=== PATIENT | female | born 1980 | race Caucasian/White ===

== ENCOUNTER 2017-07-21 12:15 | Emergency (ER) | payer MEDICAID ==
--- NOTE | 2017-07-21 12:25 | ED Physician Chart ---
ED Chief Complaint/HPI - Patient Information Date Seen:: 07/21/17 Time Seen:: 12:20 Chief Complaint:: Fever for 3 days. History of Present Illness:: C/O fever for 3 days. Pt has not had any antipyretic and analgesic use today. Pt has had nasal congestion with cough for one day with phlgem. Pt has been taking po well without N/V/D. ?sore throat. No dyspnea. Allergies:: NKA Vitals:: see Nurse Note. Historian:: Patient Family MD/PCP:: Dr. Wynn. LMP:: Now. Review:: Nurse's Note Reviewed ED Review of Systems - Review of Systems General/Constitutional: Fever, No chills, No weight loss, No weakness, No edema , No loss of appetite Skin: No rash, No bruising Head: Headache (sinus pressure), No light-headedness Eyes: No loss of vision, No pain, No diplopia ENT: No earache, Nasal drainage, Sore throat (?) Neck: No neck pain, No swelling, No thyromegaly, No stiffness, No mass noted Cardio Vascular: No chest pain, No palpitations, No edema Pulmonary: No SOB, Cough, Sputum (?phlegm), No wheezing GI: No nausea, No vomiting, No pain G/U: No dysuria, No frequency Digital Photo Printer: No vaginal discharge, No abnormal vaginal bleed Musculoskeletal: No bone or joint pain, No muscle pain Endocrine: No polyuria, No polydipsia Psychiatric: No prior psych history Hematopoietic: No bruising, No lymphadenopathy Allergic/Immuno: No urticaria, No angioedema Neurological: No syncope, No focal symptoms, No weakness, No paresthesia, No dizziness, No confusion ED Past Medical History - Past Medical History Past Medical History: HTN Family History: HTN (parents.) Social History: Non Smoker, No Alcohol, No Drug Use, , Other (lives with her son.) Employment:: Unemployed. Surgical History: (C section 10 y/a), other (R forearm tendon repair 9 y/a) Psychiatricy History: None Medication: Reviewed Family Medical History - Family Member Mother Ethnicity: Living Status: Still Living Hx Family Hypertension: Yes ED Physical Exam - Physical Examination General/Constitutional: Awake, Well-developed, well-nourished, Alert, No distress, GCS 15, Non-toxic appearing Other Gen/Cons comments:: Breathes comfortably, speaks clearly, and interacts normally. Head: Atraumatic (Mild tenderness at frontal and maxillary sinus regions.) Eyes: Lids, conjuctiva normal, PERRL, EOMI Skin: Nl inspection, No rash, No ecchymosis, No lymphadenopathy ENMT: External ears, nose nl, TM canals nl Other ENMT comments:: Trace light yellow postnasal drip noticed. Throat is slightly erythematous. Neck: Nontender, Full ROM w/o pain, No nuchal rigidity, No mass, No stridor Respiratory: Nl effort/Exclusion, Clear to Auscultation Cardio Vascular: No murmur, gallop, rubs Other Cardio Vascular comments:: Regular rhythm with mild tachycardia. HR 106. GI: No tenderness/rebounding/guarding, No organomegaly, Normal BS's, Nondistended Other GI comments:: Abdomen is soft. Extremities: No tenderness or effusion, No edema Neuro/Psych: Alert/oriented (oriented x 3), Mood normal, No focal deficits ED Septic Shock - . Is Septic Shock (SBP<90, OR Lactate>4 mmol\L) present?: No ED Reassessment (Disposition) - Reassessment Reassessment:: 1420 Pt feels much better. Pt is now afebrile. No N/V/D. No dyspnea. Pt requests to go home now and does not want further observation/management in hospital. Aftercare instructions have been given. Reassessment Condition:: Improved - Diagnosis Diagnosis:: Viral syndrome with secondary acute sinusitis. Stable. - Aftercare/Follow up Instructions Aftercare/Follow-Up Instructions:: Refer to Discharge Instructions Notes:: Bedrest for today. May take Sudafed as directed. May take Tylenol and/or Motrin as directed prn for pain or fever. Push oral fluid. F/U with PCP Dr. Wynn in 1-2 days for recheck. Return to ER immediately if condition worsens or if any further questions/problems. Medication Prescribed:: Bactrim DS one tab po q12h for 14 days. D-28 R-0 Pt has been instructed to use barrier method control in addition to OCP when taking antibiotic. - Patient Disposition Discharge/Transfer:: Home Time:: 14:30 Condition at Disposition:: Stable, Improved ED Discharge Plan - Patient Disposition Prescriptions: Sulfamethoxazole/Trimethoprim [Bactrim Ds Tablet] 1 each PO BID #14 tablet Instructions: Fever, Adult, Viral Infections, [id number]
[2017-07-21] MEDS ORDERED: Sulfamethoxazole/TMP 800/160mg Tab PO ONE (13:20)
[2017-07-21] MEDS ORDERED: Sulfamethoxazole/TMP 800/160mg Tab ONE (13:35)
== END 2017-07-21 14:30 | disposition home or self-care (01) ==
LOC: ER 12:15
DX: B34.9 Viral infection, unspecified (principal); J01.90 Acute sinusitis, unspecified; I10 Essential (primary) hypertension
CPT/HCPCS: Z7502; Z7610

== ENCOUNTER 2017-07-22 10:20 | Inpatient (IN) | payer MEDICAID ==
--- NOTE | 2017-07-22 10:33 | ED Physician Chart ---
ED Chief Complaint/HPI - Patient Information Date Seen:: 07/22/17 Time Seen:: 10:20 Chief Complaint:: Dyspnea History of Present Illness:: onset x 2 days of dyspnea, anxiousness, hyperventillation, generalized paresthesias, numbness, and weakness intermittently; pt denies trauma, H/As, S/T , neck pain, C/P, Abd. Pain, A/N/V/D/C, fever, chills, or urinary s/s Allergies:: Allergies Allergy/AdvReac Type Severity Reaction Status Date / Time No Known Allergies Allergy Verified 07/21/17 12:25 Historian:: Patient Review:: Nurse's Note Reviewed ED Review of Systems - Review of Systems General/Constitutional: No fever, No chills, No weight loss, No weakness, No diaphoresis, No edema, No loss of appetite Skin: No skin lesions, No rash, No bruising Head: No headache, No light-headedness Eyes: No loss of vision, No pain, No diplopia ENT: No earache, No nasal drainage, No sore throat, No tinnitus Neck: No neck pain, No swelling, No thyromegaly, No stiffness, No mass noted Cardio Vascular: No chest pain, No palpitations, No PND, No orthopnea, No edema Pulmonary: SOB, No cough, No sputum, No wheezing GI: No nausea, No vomiting, No diarrhea, No pain, No melena, No hematochezia, No constipation, No hematemesis G/U: No dysuria, No frequency, No hematuria Route Salesman And Driver: No vaginal discharge, No abnormal vaginal bleed, No contraction Musculoskeletal: No bone or joint pain, No back pain, No muscle pain Endocrine: No polyuria, No polydipsia Psychiatric: No prior psych history, No depression, Anxiety, No suicidal ideation, No homicidal ideation, No auditory hallucination, No visual hallucination Hematopoietic: No bruising, No lymphadenopathy Allergic/Immuno: No urticaria, No angioedema Neurological: No syncope, No focal symptoms, Weakness, Paresthesia, No headache , No seizure, No dizziness, No confusion, No vertigo ED Past Medical History - Past Medical History Obtainable: Yes Past Medical History: Other (Hyperventillation Syndrome) Family History: HTN Social History: Non Smoker, No Alcohol, No Drug Use, Surgical History: None Psychiatricy History: Other (Anxiety Reaction) Medication: Reviewed Family Medical History - Family Member Mother Ethnicity: Living Status: Still Living Hx Family Hypertension: Yes ED Physical Exam - Physical Examination General/Constitutional: Awake, Well-developed, well-nourished, Alert, No distress, GCS 15, Non-toxic appearing, Ambulatory Head: Atraumatic Eyes: Lids, conjuctiva normal, PERRL, EOMI Other Eyes comments:: + Scleral Icterus Skin: Nl inspection, No rash, No skin lesions, No ecchymosis, Well hydrated, No lymphadenopathy Other Skin comments:: + jaundice ENMT: External ears, nose nl, TM canals nl, Nasal exam nl, Lips, teeth, gums nl , Oropharynx nl, Tonsils nl Neck: Nontender, Full ROM w/o pain, No JVD, No nuchal rigidity, No bruit, No mass, No stridor Other Neck comments:: Supple; no meningeal signs; no cervical tenderness; no bruits Respiratory: Nl effort/Exclusion, Clear to Auscultation, No Wheeze/Rhonchi/Rales Cardio Vascular: RRR, No murmur, gallop, rubs, NL S1 S2, Carotid/Femoral/Distal pulses equal bilaterally GI: No tenderness/rebounding/guarding, No organomegaly, No hernia, Normal BS's, Nondistended, No mass/bruits, No McBurney tenderness Other GI comments:: no pulsatile masses : No CVA tenderness Extremities: No tenderness or effusion, Full ROM, normal strength in all extremities, No edema, Normal digits & nails Neuro/Psych: Alert/oriented, DTR's symmetric, Normal sensory exam, Normal motor strength, Judgement/insight normal, Mood normal, Normal gait, No focal deficits Misc: Normal back, No paraspinal tenderness ED Labs/Radiology/EKG Results - Lab Results Comments:: WBC: 3.8; Platelets: 85,000; LA: 13; Na+: 122; K+: 3.3; CO2: 12; BUN: 52; Cr: 5 ; Elevated LFTs; - EKG Interpretations EKG Time:: 11:06 Rate & Rhythm: 101; ST Comments:: non-specific st-t changes ED Septic Shock - . Is Septic Shock (SBP<90, OR Lactate>4 mmol\L) present?: No ED Reassessment (Disposition) - Reassessment Reassessment Condition:: Improved - Diagnosis Diagnosis:: Dx: Dyspnea; Jaundice; Pulmonary Embolus; CHF; Hepatitis; Hyponatremia; Hypokalemia; Acidosis; Respiratory Alkalosis; Metabolic Acidosis; Leukopenia; Anemia; Sepsis - Aftercare/Follow up Instructions Aftercare/Follow-Up Instructions:: Counseled pt regarding lab results/diagnosis & need follow up, Counseled pt & family regarding lab results/diagnosis & need follow up - Patient Disposition Discharge/Transfer:: Acute Care w/in this hosp Accepting Physician:: Dr. Haddad Time Called:: 1230 Time Responded:: 12:30 Admitted to:: ICU Spoke to:: Dr. Haddad Admitting Medical Physician:: Dr. Haddad Condition at Disposition:: Stable, Improved
[2017-07-22 11:08] LABS: HEMATOCRIT 34.5 % (41.0-60); HEMOGLOBIN 11.5 gm/dL (12-16); MEAN CELL VOLUME 74.8 fl (81-100); MEAN CORPUSCULAR HGB CONC 33.4 pg (28.0-36.0); MEAN PLATELET VOLUME 9.1 fl; PLATELET COUNT 85 Th/cmm (150-400); RED BLOOD COUNT 4.62 Mil/cmm (3.80-5.10)
[2017-07-22 11:14] LABS: INR 1.1 (0.5-1.4); MANUAL DIFF REQUIRED? YES; PROTHROMBIN TIME (TEST) 11.5 SECONDS (9.5-11.5); WHITE BLOOD COUNT 3.8 Th/cmm (4.8-10.8)
[2017-07-22 11:24] LABS: ALB/GLOB RATIO 1.3 (1.0-1.8); ALBUMIN 3.2 gm/dL (3.7-5.3); ANION GAP 28.3 (7.0-16.0); BILIRUBIN,TOTAL 6.3 mg/dL (0.3-1.0); CALCIUM SERUM 7.8 mg/dL (8.6-10.3); GFR AFRICAN-AMERICAN 12.6 ml/min (>90); GFR NON AFRICAN-AMERICAN 10.4 ml/min; POTASSIUM SERUM 3.3 mEq/L (3.5-5.1); TOTAL PROTEIN,SERUM 5.6 gm/dL (6.0-8.3)
[2017-07-22 11:25] LABS: ALB/GLOB RATIO 1.3 (1.0-1.8); ALBUMIN 3.2 gm/dL (3.7-5.3); BILIRUBIN,DIRECT 3.52 mg/dL (0.0-0.2); BILIRUBIN,TOTAL 6.3 mg/dL (0.3-1.0); TOTAL PROTEIN,SERUM 5.7 gm/dL (6.0-8.3)
[2017-07-22] MEDS ORDERED: Sodium Chloride 0.9% 1,000 ML IV ONE ×2 (11:29→21:00)
[2017-07-22 11:39] LABS: pH 7.25 (7.35-7.45)
[2017-07-22 11:43] LABS: BAND NEUTROPHILE 28 % (0-10); LYMPHOCYTE 9 % (20-50); MONOCYTE 6 % (2-10); NEUTROPHILS 57 % (40-80); TOTAL CELLS COUNTED 100
[2017-07-22 11:44] LABS: ANISOCYTOSIS 1+; PLATELET ESTIMATE SLIGHT DECREASED (NORMAL)
[2017-07-22] MEDS ORDERED: Sodium Bicarbonate 8.4% 50mEq PFS IVP ONE ×3 (11:57→22:14)
[2017-07-22] MEDS ORDERED: Sodium Bicarbonate 8.4% 50mEq PFS IVP SCH (12:00)
[2017-07-22] MEDS ORDERED: Potassium Chloride 20 mEq ER Tab PO ONE ×2 (12:29→12:30)
[2017-07-22] MEDS ORDERED: Sodium Bicarbonate 8.4% 50mEq PFS IVP PRN (12:45)
[2017-07-22] MEDS ORDERED: cefTRIAXone 1 GM in Sodium Chloride 0.9% 50 ML IV ONE (14:50)
[2017-07-22] MEDS ORDERED: Sodium Bicarbonate 8.4% 200 MEQ in Sodium Chloride 0.9% 1,000 ML IV SCH (14:58)
[2017-07-22] MEDS ORDERED: Sodium Chloride 0.9% 1,000 ML IV SCH (15:00)
--- NOTE | 2017-07-22 16:48 | Consultation ---
DATE OF CONSULTATION: 07/22/2017 HEMATOLOGY AND ONCOLOGY CONSULTATION REFERRING PHYSICIAN: Ten Haddad. REASON FOR CONSULTATION: Pancytopenia. HISTORY OF PRESENT ILLNESS: The patient is a 36-year-old female who came to the Emergency Room with weakness and shortness of breath. Denied fever. Denied confusion. The initial workup was abnormal showing acute renal failure, abnormal liver functions, hypoxemia, elevated D-dimer, low white count, hemoglobin and platelets; therefore, I was asked to evaluate and also the patient will be seen by the slope runner and thermal spray operator. She was started on Rocephin 1 dose of antibiotic in the Emergency Room. The patient is seen in the Emergency Room. PAST MEDICAL HISTORY: Hypertension. FAMILY HISTORY: Hypertension. SOCIAL HISTORY: No smoking or drinking. SURGICAL HISTORY: The patient had one . MEDICATIONS: Reviewed. PHYSICAL EXAMINATION: GENERAL: She looks acutely ill. VITAL SIGNS: Blood pressure 109/66, afebrile, pulse 106 and respiration ranging between 20 and 25. HEENT: Atraumatic and icteric sclerae. NECK: No lymphadenopathy. CHEST: Equal air entry. ABDOMEN: Soft. No guarding or rebound. No ascites or organomegaly. EXTREMITIES: No edema. NERVOUS SYSTEM: Moves four extremities. SKIN: Icteric. LABORATORY DATA: White count 3.8, hemoglobin 11.5, MCV 74.8, platelets 85, bands 28%, neutrophils 57% and lymphocytes 9%. INR 1.1, PTT 42.6. D-dimer 2500. Blood gas: PH 7.25, Pao2 75, saturation 75, potassium 3.3, sodium 122, creatinine 5, carbondioxide 12, total bilirubin 6.3, direct bilirubin 3.5. AST and ALT are elevated. test negative. IMAGING STUDIES: Pending. ASSESSMENT: Multiple abnormal findings highlighted by acute renal failure and pancytopenia with marked elevation of the bands on the differential count and high bilirubin. The differential diagnosis at this point is very wide including pulmonary embolism, sepsis, acute liver failure. I will obtain fibrinogen level. TTP is less likely because of the elevated PTT; however, it will be considered based on the clinical progress of the condition. At this point in time, the patient is not neutropenic or severely pancytopenic to require transfusion. She has microcytic anemia. I will obtain the anemia workup. Follow the V/Q scan for possibility of pulmonary embolism and also follow the results of the CT scan of the abdomen and pelvis. Further management will be addressed based on the results of the workup. Thank you, Dr. Haddad for the opportunity to participate in the care of this interesting case. JOB# [id number]
[2017-07-22] MEDS ORDERED: Diltiazem 5 mg/mL 5mL Vial IVP STA (19:08)
[2017-07-22] MEDS ORDERED: Diltiazem 5 mg/mL 5mL Vial IVP ONE (19:09)
--- NOTE | 2017-07-22 19:09 | Consultation ---
DATE OF CONSULTATION: 07/22/2017 REASON FOR CONSULTATION: Jaundice. HISTORY OF PRESENT ILLNESS: This consult was obtained through the courtesy of Dr. Haddad for this 36-year-old with history of hypertension, presented to the hospital because of shortness of breath, bluish discoloration of her hands and feet, feeling cold. The patient started feeling sick . She came to the hospital yesterday, was sent home, then showed up again, however, was called by the hospital administration, was found that she had abnormal results so she was advised to come back again. When she came, she was hypoxemic. She had abnormal liver function tests, pancytopenia. The patient was admitted. GI consult was called in for the jaundice. The patient denies any weight loss. No hematemesis, melena or hematochezia. No change of bowel habits. PAST MEDICAL HISTORY: Hypertension. PAST SURGICAL HISTORY: and hand surgery following injury by a glass container. SOCIAL HISTORY: Nonsmoker, alcoholic and IV drug abuser. FAMILY HISTORY: Noncontributory. MEDICATIONS: Only for blood pressure. ALLERGIES: No known drug allergies. REVIEW OF SYSTEMS: Again, no weight loss. No hematemesis, melena or hematochezia. No prior episodes like this. PHYSICAL EXAMINATION: GENERAL: The patient is awake, oriented to self, place, and time, in moderately severe distress secondary to shortness of breath. VITAL SIGNS: Blood pressure is 122/77, heart rate 126, respiratory rate is 22, and temperature is 99.8. HEAD AND NECK: Pupils reactive to light. Extraocular muscles intact. Sclerae icteric. Conjunctivae not pale. Oral cavity, no lesion. NECK: Supple, no jugular venous distention, no carotid bruits or lymph node. CHEST: Good respiratory movements. LUNGS: Clear to auscultation. CARDIOVASCULAR: Regular rate and rhythm. No murmur or gallop. Heart rate is tachycardic. ABDOMEN: Soft, nontender, nondistended. Bowel sounds present. EXTREMITIES: Lower extremities felt warm, but has some mottling. Upper extremities cyanotic. LABORATORY DATA: White count 3.8, platelets 85, H and H are 11.5 and 34.5. PT is normal, pCO2 was 18. Potassium 3.3, BUN 52, creatinine 5. No labs from the visit over the last night. Bilirubin is 6.3, direct is 3.52, AST 129, ALT 61. Lactic acid is 11.91 and repeat was 12.91. IMPRESSION: A 36-year-old with hypertension, now presenting with plethora of symptoms including cyanotic hands, cold feet, mottling of skin, thrombocytopenia, jaundice, shortness of breath, hypoxemia. The whole picture is very hard to explain, could be some vasculitis problem, could be autoimmune, could be some sort of rheumatological disorder, cannot exclude also thrombocytopenic purpura. At this time, the high bilirubinemia is 5050, so was not completely indirect to suggest hemolysis only. There could be some blockage. There could be some sepsis also given the elevation of lactic acid again part of the differential also might include pulmonary embolism. The patient already is being evaluated with retail wireless associate. PE is on the workup, she had a CAT scan, result is not available yet. We will get also an ultrasound. We will recheck liver enzymes in the morning. We will check hepatitis panel and the patient might benefit from being transferred to a tertiary center for further evaluation for the time being. Thank you, Dr. Haddad for allowing me to participate in the care of this patient. If you have any further questions, please let me know. JOB# [id number] [place]
[2017-07-22 19:13] LABS: ACETAMINOPHEN < 10.0 ug/mL (10.0-30.0); SALICYLATES (ASPIRIN) < 25.0 mg/L (30.0-100.0)
[2017-07-22] MEDS ORDERED: Sodium Bicarbonate 8.4% 50mEq PFS IVP STA ×2 (19:23→21:06)
[2017-07-22 19:25] LABS: ALB/GLOB RATIO 1.2 (1.0-1.8); ALBUMIN 2.6 gm/dL (3.7-5.3); ANION GAP 30.3 (7.0-16.0); BILIRUBIN,TOTAL 7.1 mg/dL (0.3-1.0); CALCIUM SERUM 6.5 mg/dL (8.6-10.3); GFR AFRICAN-AMERICAN 11.5 ml/min (>90); GFR NON AFRICAN-AMERICAN 9.5 ml/min; POTASSIUM SERUM 3.9 mEq/L (3.5-5.1); TOTAL PROTEIN,SERUM 4.7 gm/dL (6.0-8.3)
[2017-07-22 19:48] LABS: CARBON DIOXIDE 9.6 mEq/L (21.0-31.0); CREATININE - SERUM 5.4 mg/dL (0.6-1.2)
[2017-07-22 19:55] LABS: INF A SCREEN NEG FOR INF A; INF B SCREEN NEG FOR INF B
[2017-07-22] MEDS ORDERED: Piperacillin Sodium/Tazobact 3.375 gm Vial IV ONE (19:59)
--- NOTE | 2017-07-22 20:10 | Consultation ---
DATE OF CONSULTATION: 07/22/2017 PATIENT OF: Dr. Haddad Thank you very much, Dr. Haddad for this consultation. HISTORY OF PRESENT ILLNESS: This is a very interesting 36-year-old female who apparently presented with flu-like symptoms, given antibiotics and came back sick again, was found to be tachycardic, tachypneic, short of breath and was found to have severe metabolic acidosis, has received bicarbonate, IV fluids 2 liters so far. Initial ABG shows severe metabolic acidosis. The patient was found to be in acute renal failure as well with lactic acid of 12.9. The patient says she does not have any significant medical problems before, last couple of days she felt like she is getting cold and feet and hands and diminished sensation all over. She is not aware of any connective tissue disorders. No recent travel. She is not a smoker. No drinking and no drug use. PHYSICAL EXAMINATION: GENERAL: The patient is uncomfortable, apprehensive, but apparently doing a little bit better, breathing a bit easier than yesterday. VITAL SIGNS: Temperature 99.8, pulse is 126, respiratory rate 22, blood pressure 122/77, saturation 99% on nasal cannula. HEENT: Atraumatic, normocephalic. Pupils are equal to light and accommodation. Ears, nose and throat are normal. NECK: Supple. No JVD. CHEST: There are decreased breath sounds right base, few rhonchi. HEART: Regular rhythm. ABDOMEN: Soft. EXTREMITIES: No edema. There are cool extremities all over. This appears to be cyanotic type of hands, but with adequate saturation. LABORATORY DATA: WBC is 3.8, hemoglobin 11.5, hematocrit 34.5, platelets is 85. ABGs: pH 7.25, pCO2 of 53, pO2 of 75, bicarbonate 11, saturation is 75%. Sodium is 122, potassium 3.3, BUN is 52, creatinine is 5. Chest x-ray showed extensive right-sided infiltrate. CT abdomen no significant abnormalities, dilated stomach. IMPRESSION: A 36-year-old female with extensive pneumonia on the right side, appears to be sepsis, acute renal failure, liver failure, multiorgan failure, possibly methemoglobinemia with low saturation and adequate pO2. PLAN: 1. IV fluids, IV antibiotics. 2. Bicarb. 3. Follow up ABGs with methemoglobin value. renal and GI and suggest ID evaluation. The patient might benefit tertiary Center for any further extensive evaluation. We will agree with broad spectrum antibiotics usage and discussed with the patient and her family in details. Poor prognosis at this point. Thank you for this consultation. I will follow the patient with you. JOB# [id number] [email or web address]
[2017-07-22 21:17] LABS: pH 7.23 (7.35-7.45)
[2017-07-22 21:18] LABS: ALLEN TEST Positive
[2017-07-22] MEDS ORDERED: Sodium Bicarbonate 8.4% 50mEq Vial ONE ×2 (21:23→21:57)
[2017-07-22] MEDS: Sodium Bicarbonate 8.4% 50mEq PFS IVP SCH (21:30)
[2017-07-22] MEDS: Calcium Gluconate 1 GM in Sodium Chloride 0.9% 100 ML IV SCH (21:38)
[2017-07-22] MEDS ORDERED: Norepinephrine 4 mg/4mL Vial IV ONE (22:23)
--- NOTE | 2017-07-22 22:52 | ED Physician Chart ---
ED Chief Complaint/HPI - Patient Information Date Seen:: 07/22/17 Time Seen:: 21:39 History of Present Illness:: Around 21:20, spoke with Dr. Earl who wanted the V/Q scan to be stopped and intubation to be done CED. Allergies:: Allergies Allergy/AdvReac Type Severity Reaction Status Date / Time No Known Allergies Allergy Verified 07/21/17 12:25 Vitals:: Vital Signs - 8 hr 07/22/17 07/22/17 07/22/17 15:00 16:37 17:00 Temp 99.8 F 99 F HR 122 126 133 RR 22 22 22 BP 122/79 122/77 122/65 O2 Sat % 99 99 99 Family Medical History - Family Member Mother Ethnicity: Living Status: Still Living Hx Family Hypertension: Yes ED Labs/Radiology/EKG Results - Lab Results Results: Laboratory Tests 07/22/17 07/22/17 07/22/17 10:45 10:55 10:55 WBC 3.8 L RBC 4.62 Hgb 11.5 L Hct 34.5 L MCV 74.8 L MCH 25.0 L MCHC Differential 33.4 RDW 15.0 Plt Count 85 L MPV 9.1 Band Neutrophils % 28 H Neutrophils (Manual) 57 Lymphocytes 9 L Monocytes 6 Platelet Estimate SLIGHT DECREASED Anisocytosis 1+ Microcytosis 2+ PT 11.5 INR 1.10 PTT (Actin FS) 42.6 H Fibrinogen 220.0 D-Dimer Specimen Source Sample Site pH pCO2 pO2 HCO3 Base Excess O2 Saturation Roland Test Vent Rate Inspired O2 Tidal Volume PEEP Pressure (ins/psv/peep) Critical Value Sodium Potassium Chloride Carbon Dioxide Anion Gap BUN Creatinine Est GFR ( Amer) Est GFR (Non-Af Amer) BUN/Creatinine Ratio Glucose Whole Bld Lactic Acid Calcium Total Bilirubin Direct Bilirubin AST ALT Alkaline Phosphatase Creatine Kinase CK-MB (CK-2) Troponin I B-Natriuretic Peptide Total Protein Albumin Globulin Albumin/Globulin Ratio Triglycerides Cholesterol LDL Cholesterol Direct HDL Cholesterol Amylase Lipase Serum , Qual Salicylates Acetaminophen Influenza A (Rapid) Influenza B (Rapid) 07/22/17 07/22/17 07/22/17 10:55 10:55 10:55 WBC RBC Hgb Hct MCV MCH MCHC Differential RDW Plt Count MPV Band Neutrophils % Neutrophils (Manual) Lymphocytes Monocytes Platelet Estimate Anisocytosis Microcytosis PT INR PTT (Actin FS) Fibrinogen D-Dimer 2560 H Specimen Source Sample Site pH pCO2 pO2 HCO3 Base Excess O2 Saturation Roland Test Vent Rate Inspired O2 Tidal Volume PEEP Pressure (ins/psv/peep) Critical Value Sodium 122 L Potassium 3.3 L Chloride 85 L Carbon Dioxide 12.0 L Anion Gap 28.3 H BUN 52 H Creatinine 5.0 H* Est GFR ( Amer) 12.6 Est GFR (Non-Af Amer) 10.4 BUN/Creatinine Ratio 10.4 Glucose 89 Whole Bld Lactic Acid Calcium 7.8 L Total Bilirubin 6.3 H Direct Bilirubin AST 129 H ALT 61 H Alkaline Phosphatase 72 Creatine Kinase 901 H CK-MB (CK-2) 24.6 H Troponin I 0.07 H* B-Natriuretic Peptide 511.0 H Total Protein 5.6 L Albumin 3.2 L Globulin 2.4 Albumin/Globulin Ratio 1.3 Triglycerides 536 H Cholesterol 129 LDL Cholesterol Direct 23 L HDL Cholesterol 15 L Amylase Lipase Serum , Qual Salicylates Acetaminophen Influenza A (Rapid) Influenza B (Rapid) 07/22/17 07/22/17 07/22/17 10:55 10:55 10:55 WBC RBC Hgb Hct MCV MCH MCHC Differential RDW Plt Count MPV Band Neutrophils % Neutrophils (Manual) Lymphocytes Monocytes Platelet Estimate Anisocytosis Microcytosis PT INR PTT (Actin FS) Fibrinogen D-Dimer Specimen Source Sample Site pH pCO2 pO2 HCO3 Base Excess O2 Saturation Roland Test Vent Rate Inspired O2 Tidal Volume PEEP Pressure (ins/psv/peep) Critical Value Sodium Potassium Chloride Carbon Dioxide Anion Gap BUN Creatinine Est GFR ( Amer) Est GFR (Non-Af Amer) BUN/Creatinine Ratio Glucose Whole Bld Lactic Acid 11.98 H* Calcium Total Bilirubin 6.3 H Direct Bilirubin 3.52 H AST 133 H ALT 61 H Alkaline Phosphatase 73 Creatine Kinase CK-MB (CK-2) Troponin I B-Natriuretic Peptide Total Protein 5.7 L Albumin 3.2 L Globulin 2.5 Albumin/Globulin Ratio 1.3 Triglycerides Cholesterol LDL Cholesterol Direct HDL Cholesterol Amylase Lipase Serum , Qual NEGATIVE Salicylates Acetaminophen Influenza A (Rapid) Influenza B (Rapid) 07/22/17 07/22/17 07/22/17 10:55 11:30 13:05 WBC RBC Hgb Hct MCV MCH MCHC Differential RDW Plt Count MPV Band Neutrophils % Neutrophils (Manual) Lymphocytes Monocytes Platelet Estimate Anisocytosis Microcytosis PT INR PTT (Actin FS) Fibrinogen D-Dimer Specimen Source Arterial Sample Site LB pH 7.25 L pCO2 18.0 L* pO2 75.0 L HCO3 11.5 L Base Excess -17.1 L O2 Saturation 75.0 L Roland Test Vent Rate Inspired O2 21 Tidal Volume PEEP Pressure (ins/psv/peep) Critical Value PW Sodium Potassium Chloride Carbon Dioxide Anion Gap BUN Creatinine Est GFR ( Amer) Est GFR (Non-Af Amer) BUN/Creatinine Ratio Glucose Whole Bld Lactic Acid 12.91 H* Calcium Total Bilirubin Direct Bilirubin AST ALT Alkaline Phosphatase Creatine Kinase CK-MB (CK-2) Troponin I B-Natriuretic Peptide Total Protein Albumin Globulin Albumin/Globulin Ratio Triglycerides Cholesterol LDL Cholesterol Direct HDL Cholesterol Amylase Lipase Serum , Qual Salicylates < 25.0 L Acetaminophen < 10.0 L Influenza A (Rapid) Influenza B (Rapid) 07/22/17 07/22/17 07/22/17 19:04 19:20 20:15 WBC RBC Hgb Hct MCV MCH MCHC Differential RDW Plt Count MPV Band Neutrophils % Neutrophils (Manual) Lymphocytes Monocytes Platelet Estimate Anisocytosis Microcytosis PT INR PTT (Actin FS) Fibrinogen D-Dimer Specimen Source Arterial Sample Site RB pH 7.23 L* pCO2 30.0 L pO2 112.0 H HCO3 14.2 L Base Excess -13.7 L O2 Saturation 97.0 Roland Test Positive Vent Rate N/A Inspired O2 100% Tidal Volume N/A PEEP N/A Pressure (ins/psv/peep) N/A Critical Value HSTEHNO Sodium 124 L Potassium 3.9 Chloride 88 L Carbon Dioxide 9.6 L* Anion Gap 30.3 H BUN 59 H Creatinine 5.4 H* Est GFR ( Amer) 11.5 Est GFR (Non-Af Amer) 9.5 BUN/Creatinine Ratio 10.9 Glucose 81 Whole Bld Lactic Acid Calcium 6.5 L Total Bilirubin 7.1 H Direct Bilirubin AST 137 H ALT 54 H Alkaline Phosphatase 68 Creatine Kinase CK-MB (CK-2) Troponin I B-Natriuretic Peptide Total Protein 4.7 L Albumin 2.6 L Globulin 2.1 Albumin/Globulin Ratio 1.2 Triglycerides Cholesterol LDL Cholesterol Direct HDL Cholesterol Amylase 276 H Lipase 19 Serum , Qual Salicylates Acetaminophen Influenza A (Rapid) NEG FOR INF A Influenza B (Rapid) NEG FOR INF B ED Assessment - Procedures Procedures:: Intubation. After Etomidate 18mg IVP and Succinylcholine 60mg IVP, sedation and paralysis were achieved, a MAC 4 blade and 7 ET tube were used to intubate the patient with success. Patient tolerated well. CXR and ABG were ordered. ED Septic Shock - . Is Septic Shock (SBP<90, OR Lactate>4 mmol\L) present?: No - <6hrs of presentation: Vital Signs: Vital Signs - 8 hr 07/22/17 07/22/17 07/22/17 15:00 16:37 17:00 Temp 99.8 F 99 F HR 122 126 133 RR 22 22 22 BP 122/79 122/77 122/65 O2 Sat % 99 99 99 ED Reassessment (Disposition) - Reassessment Reassessment Condition:: Improved
--- NOTE | 2017-07-22 23:30 | History & Physical ---
ADMIT DATE: 07/22/2017 CHIEF COMPLAINT: Not feeling well, shortness of breath and numbness of both hand and feet. HISTORY OF PRESENT ILLNESS: This is a 36-year-old female who came to the Emergency Room for evaluation of not feeling well for the past 4-5 days. The patient was alert, awake at the time of evaluation who helped me providing most of the history. Per patient, she started feeling sick about 5 days ago. Initially, the patient states that she had some tooth ache, progressively she started feeling very weak. The patient said that she probably have had her fever for the last 3-4 days but never checked the temperature. Today she started having shortness of breath. Denies any associated chest pain. No dizziness, no palpitations. The patient said she came to the Emergency Room yesterday at [facility] Emergency Room and was diagnosed with viral infection and acute sinusitis and was discharged home with the oral antibiotic, which she took 2 doses. In spite of that, she did not feel well, instead she got worse so the patient came to the Emergency Room again. The patient says she does have underlying history of hypertension for the past 10 years and for which she sees her primary care physician on a regular basis and takes atenolol on regular basis. The patient denies any recent travel history. She states that she had one or two episodes of loose stool. She denies any vomiting. She denies any hematemesis, no melena, no hematuria, no dysuria, no bloody stool. The patient's family was at the bedside who said the patient has been having a headache for the past 2 weeks. The patient in last 5 days, she was trying to rest at home except yesterday when she came to the Emergency Room. PAST MEDICAL HISTORY: Hypertension. PAST SURGICAL HISTORY: C section surgery SOCIAL HISTORY: Lives at home. She is unemployed. She denies any past or present history of alcohol, tobacco or street drug use. CURRENT MEDICATIONS: The patient at home was on atenolol. REVIEW OF SYSTEMS: Trouble breathing, bilateral hand and feet numbness, bluish discoloration. Denies any throat pain, no chest pain, no dizziness, no palpitations, no nausea, no vomiting, no abdominal pain, no headache, no double vision, no trouble speech. denied hemetemesis or melena. PHYSICAL EXAMINATION: VITAL SIGNS: Temperature 99, pulse 133, respiration ranges was 22 to 40, blood pressure was 122/65 on the monitor. GENERAL APPEARANCE: The patient has sinus tachycardia rhythm on the monitor. HEENT: Negative for JVD or neck stiffness noted CHEST: Bilateral rales noted. HEART: Tachycardia noted. ABDOMEN: Soft, nontender, nondistended. No guarding, rigidity noted. NEUROLOGIC: The patient is alert, awake, moves all extremities. Follows commands. Grossly nonfocal exam. EXTREMITIES: Negative for edema. Pulses +2 in both lower extremities. Both hand digits seem to have cyanotic changes. AVAILABLE LABORATORY DATA: WBC is 3.8, hemoglobin 11.5, hematocrit is 34.5, platelet count is 85, band is 28. DATA: Sodium is 124, potassium 3.9, BUN is 59, creatinine 5.4. AST 137, ALT is 54, troponin 0.07. BNP is 511. lipase is 19. Serum is negative. Blood toxicology, salicylate less than 25 Acetaminophen level less than 10. D-dimer is 2560, PT 11.5, INR 1.1. PTT is 42.6. ABG; pH of 7.25, PCO2 of 18, bicarbonate 11.5, PO2 is 75.0. ASSESSMENT: 1. Severe sepsis. 2. Multisystem organ failure, mostly secondary to sepsis. 3. Pancytopenia, possibly to sepsis. 4. Acute renal failure with severe lactic acidosis. 5. Acute respiratory failure, possibly due to pneumonia, related to sepsis. 6. Cardiac arrhythmia, possibly related to sepsis. 7. Elevated liver enzymes 8. Elevated D Dimer r/o Pulmonary embolism PLAN: The patient will be admitted to ICU. Sepsis protocol was initiated. The patient has been given IV fluid resuscitation with IV fluid boluses and also high flow IV fluid maintenance orders given. The patient was started on bicarbonate drip. The patient was started on IV vancomycin and IV Zosyn. Blood cultures and urine cultures were ordered. The patient's influenza swab is being done. Stat consults were called in for Infectious Disease Specialist, Pulmonology, Nephrology, Gastroenterology and Hematology. I discussed the case in persons with the Pulmonology and also discussed the case over the phone with the Gastroenterology, Hematology, Nephrology and Infectious Disease specialist. Their recommendations will be followed. Unable to do CT angiogram to rule out PE due to elevated renal function. STAT VQ scan ordered The patient was started on high flow oxygen with non rebreathing mask per pulmonary recommendations further Pulmonology workup per Dr. Earl. While I was evaluating the patient, the patient noticed to have a cardiac arrhythmia, heart rate was up in 200 range. I ordered one dose of Cardizem. Stat Cardiology consult was also called in. I discussed the case with Dr. Earl. There is possibility of the methemoglobinemia. We do not have methemoglobin level yet. The patient might need a hyperbaric oxygen. [facility] might need a [facility] to higher level of care. Per [facility] case management assistant, Marily who had contacted the patient's insurance and has communicated regarding the need for the transfer awaiting approval to the contracted facility for her possibility of higher level of care. At this point, patient's condition is very critical, prognosis is extremely poor. I explained the patient and family member at the bedside regarding the patient's poor critical conditions or the possible diagnoses. I also updated on the ongoing treatment plan, they verbalized understanding. The patient is admitted as a full code at this point. We will follow up with the specialists in this case and follow up on the recommendations. JOB# [id number] [place]
[2017-07-22 23:58] LABS: pH 7.43 (7.35-7.45)
[2017-07-22 23:59] LABS: ALLEN TEST Positive
[2017-07-23 01:02] LABS: pH 7.46 (7.35-7.45)
[2017-07-23 01:03] LABS: ALLEN TEST Positive
[2017-07-23] MEDS: Sodium Bicarbonate 8.4% 50mEq PFS IVP SCH (01:15)
[2017-07-23 01:34] LABS: ANION GAP 31.3 (7.0-16.0); CARBON DIOXIDE 13.6 mEq/L (21.0-31.0); GFR AFRICAN-AMERICAN 11.8 ml/min (>90); GFR NON AFRICAN-AMERICAN 9.7 ml/min; POTASSIUM SERUM 3.9 mEq/L (3.5-5.1)
[2017-07-23 01:36] LABS: CREATININE - SERUM 5.3 mg/dL (0.6-1.2)
[2017-07-23] MEDS ORDERED: Sodium Chloride 0.9% 1,000 ML IV ONE (03:27)
[2017-07-23] MEDS ORDERED: Meropenem 500 MG in Sodium Chloride 0.9% 100 ML IV SCH (03:27)
[2017-07-23] MEDS ORDERED: Levofloxacin 500mg/100mL 500 MG/100 ML BAG IV ONE ×2 (03:38→04:16)
[2017-07-23] MEDS ORDERED: Azithromycin 500 MG in Sodium Chloride 0.9% 250 ML IV SCH (03:45)
[2017-07-23 04:07] LABS: URINE MICROSCOPIC INDICATED? YES; URINE SOURCE FOLEY PORT
[2017-07-23 04:29] LABS: HEMATOCRIT 27.7 % (41.0-60); HEMOGLOBIN 9.2 gm/dL (12-16); MEAN CELL VOLUME 74.6 fl (81-100); MEAN CORPUSCULAR HEMOGLOBIN 24.7 pg (27.0-31.0); MEAN CORPUSCULAR HGB CONC 33.1 pg (28.0-36.0); MEAN PLATELET VOLUME 9.6 fl; RED BLOOD COUNT 3.72 Mil/cmm (3.80-5.10); WHITE BLOOD COUNT 5.5 Th/cmm (4.8-10.8)
[2017-07-23 04:37] LABS: URINE BILIRUBIN NEGATIVE (NEGATIVE); URINE BLOOD LARGE (NEGATIVE); URINE GLUCOSE (UA) NEGATIVE (NEGATIVE); URINE KETONE NEGATIVE (NEGATIVE); URINE LEUKOCYTE ESTERASE NEGATIVE (NEGATIVE); URINE NITRATE NEGATIVE (NEGATIVE); URINE PROTEIN 100 mg/dL (NEGATIVE); URINE UROBILINOGEN 0.2 E.U./dL (0.2 - 1.0)
[2017-07-23 04:41] LABS: ALB/GLOB RATIO 1.2 (1.0-1.8); ALBUMIN 2.1 gm/dL (3.7-5.3); ANION GAP 32.8 (7.0-16.0); BILIRUBIN,DIRECT 4.34 mg/dL (0.0-0.2); BILIRUBIN,TOTAL 7.3 mg/dL (0.3-1.0); CARBON DIOXIDE 15.1 mEq/L (21.0-31.0); GFR AFRICAN-AMERICAN 11.5 ml/min (>90); GFR NON AFRICAN-AMERICAN 9.5 ml/min; PHOSPHOROUS 6.8 mg/dL (2.5-5.0); POTASSIUM SERUM 3.9 mEq/L (3.5-5.1); TOTAL PROTEIN,SERUM 3.9 gm/dL (6.0-8.3); URIC ACID 7.7 mg/dL (2.3-6.6)
[2017-07-23 04:44] LABS: CREATININE - SERUM 5.4 mg/dL (0.6-1.2)
[2017-07-23 04:45] LABS: CALCIUM SERUM 5.8 mg/dL (8.6-10.3)
[2017-07-23 04:48] LABS: MANUAL DIFF REQUIRED? YES
[2017-07-23 04:56] LABS: AMPHETAMINE URINE NEGATIVE (NEGATIVE); BARBITURATES URINE NEGATIVE (NEGATIVE); BENZODIAZEPINES QUAL URINE NEGATIVE (NEGATIVE); CANNABINOID THC NEGATIVE (NEGATIVE); COCAINE METABOLITE QUAL URINE NEGATIVE (NEGATIVE); METHADONE URINE NEGATIVE (NEGATIVE); METHAMPHETAMINES QUAL URINE NEGATIVE (NEGATIVE); OPIATES (MORPHINE) QUAL. URINE NEGATIVE (NEGATIVE); PHENCYCLIDINE (PCP) URINE NEGATIVE (NEGATIVE); TRICYCLICS (TCA) QUAL. URINE NEGATIVE (NEGATIVE)
[2017-07-23 05:11] LABS: PROTHROMBIN TIME (TEST) 11.2 SECONDS (9.5-11.5)
[2017-07-23 05:12] LABS: INR 1.08 (0.5-1.4)
[2017-07-23 05:22] LABS: MAGNESIUM 1.5 mg/dL (1.9-2.7)
[2017-07-23 05:30] LABS: URINE CLARITY HAZY (CLEAR); URINE COLOR ORANGE
[2017-07-23 05:37] LABS: URINE BACTERIA FEW /hpf (NONE SEEN); URINE EPITHELIAL CELLS MODERATE /lpf (FEW); URINE RBC 50-100 /hpf (0-5)
[2017-07-23] MEDS: Calcium Gluconate 1 GM in Sodium Chloride 0.9% 100 ML IV SCH ×3 (05:40→23:38)
[2017-07-23 05:58] LABS: OCCULT BLD # 1 NEGATIVE (NEGATIVE)
[2017-07-23 06:04] LABS: PLATELET COUNT 98 Th/cmm (150-400)
[2017-07-23 06:19] LABS: STOOL WBC STAIN NO WBC SEEN
[2017-07-23] MEDS ORDERED: Sodium Bicarbonate 8.4% 50mEq PFS IVP STA (06:43)
--- NOTE | 2017-07-23 07:42 | Diagnostic Imaging Report ---
Exam: Chest x-ray HISTORY: Verify endotracheal tube placement. Findings: Frontal examination of chest reviewed the study demonstrates endotracheal tube 3 cm above the jace There is evidence for right-sided pneumothorax approximately 50%. Right lower lobe infiltrate is noted. The left lung parenchyma is well aerated. Bony thorax is intact. There is a questionable embolus process in the right base. Follow-up examination is recommended. IMPRESSION: 50% right-sided pneumothorax, right-sided pneumonia. Endotracheal tube 3.5 cm above the ajce.
--- NOTE | 2017-07-23 07:54 | Diagnostic Imaging Report ---
Exam: Portable chest x-ray. HISTORY: Dyspnea. Portable examination of chest at 1552 hours reviewed no prior studies available for comparison. The study demonstrates diffuse consolidation in right basal superimposed effusion. Ill-defined lucency in the right base might represent infected pneumatocele, or herniated the bowel loops.. Clinical correlation recommended. Follow-up examination recommended The left lung parenchyma is well aerated. The stomach distended with air. Bony thorax intact. Mediastinal structures midline. IMPRESSION: 1. Extensive right-sided pneumonia and effusion. 2. Superimposed lucency right base might represent infected pneumatocele, clinical correlation CT examination of chest recommended.
[2017-07-23] MEDS ORDERED: Albumin 25% 25gm/100mL 25 GM/100 ML BTL IV ONE ×2 (08:05→10:38)
--- NOTE | 2017-07-23 08:11 | Diagnostic Imaging Report ---
Exam: CT examination of the chest HISTORY: Hypoxia dyspnea. Total DLP equals 457 CTDI equals 9.8 Findings: Multiple contiguous thin section of the chest were obtained without the administration of contrast material from thoracic outlet to the upper abdomen. No prior studies available comparison. The study demonstrates extensive bilateral pneumonia with superimposed right pleural effusion. There is evidence of extensive air bronchograms in the right base. There is evidence for ill-defined lucency in the right base which most likely represents area with cystic structures most likely represent infected parenchymal cyst. Infection cannot be excluded. Clinical correlation recommended. Similar small cystic structure is noted in left base consolidation pneumonia. Bony structures intact. Adenopathy is difficult to exclude due to lack of contrast material. IMPRESSION: Extensive right lower lobe pneumonia and effusion Ill-defined cystic area in the right base most likely represent infected pneumatocele infectious process cannot be excluded, clinical correlation recommended. Left basilar infiltrate, similar cystic component which might infected cyst.
--- NOTE | 2017-07-23 08:11 | Diagnostic Imaging Report ---
Exam: CT examination abdomen pelvis. HISTORY: Jaundice abdominal pain. Total DLP equals 457 CTDI equals 9.8 Findings: Multiple contiguous thin section of the abdomen pelvis obtained from lower thorax to the pubic symphysis without the administration of oral or intravenous contrast material. For the description of the findings at the lung bases please refer to prior CT examination of the chest. The liver parenchyma and spleen are normal. The kidneys demonstrate no evidence of obstructive uropathy or nephrolithiasis. The visualized of Raiza glands intact. The pancreas poorly seen. There is evidence of motion artifacts. The stomach distended with fluid air content. There is a questionable residual contrast material in the duodenum. The appendix is not visualized. There is evidence of for free fluid and pelvic area. The uterus is enlarged. Fibroid infiltration can't be excluded. There is a questionable left ovarian cyst, ultrasound examination of pelvis might be helpful. There is no evidence of diverticulitis. The urinary bladder is intact. IMPRESSION: 1. Distended stomach with air-fluid level. 2. Enlarged uterus with question of ovarian cyst and free fluid in the pelvis. 3. The study is limited due to motion artifacts and patient inability to cooperate. 4. Follow-up examination with contrast material is recommended.
--- NOTE | 2017-07-23 08:32 | Consultation ---
DATE OF CONSULTATION: 07/23/2017 CHIEF COMPLAINT: The patient was not feeling well with shortness of breath, numbness of both lower extremities on thigh area with pain, and numbness of the hand and feet. HISTORY OF PRESENT ILLNESS: The patient is a 36-year-old female with past medical history of hypertension, menorrhagia on control pill for the last few months, anemia followed by manager baby every quarter or three months, and had toothaches last week. She also developed fevers and chills, so she came to the ER on 07/21/2017. At that time, she complained of nasal congestion and cough for 1 day, with phlegm production. The patient was suspected to have acute viral syndrome. The patient was sent back on Bactrim DS. She developed severe chills. The patient was called for followup reevaluation. She complained of not feeling well, feeling worse. So, she was told to come to the ER for further evaluation and management. On initial evaluation, the patient's temperature was 98.6 degrees Fahrenheit, it went up to 99.8 degrees Fahrenheit. Her pulse was 116, which went up to more than 200 and Cardizem was given. Respirations 22 and oxygen saturation was 99%. Blood pressure 122/79. Pulmonary consult was called. ABG showed pH of 7.25, PCO2 18, PO2 75, bicarbonate 11.5, and oxygen saturation was 75%. The patient was intubated orally and put on ventilator support. She developed multiple ecchymosis on different parts of the body. Lab showed pancytopenia with WBC 3800 and platelets are 85,000, with bands of 28%. Her blood pressure dropped, so she got 3 liter of IV fluid followed by IV fluid support with bicarbonate. Now, she is feeling better. Lactic acid was also 12 plus. Antibiotic gasca, the patient was vancomycin IV 1 dose 1 gram and received Zosyn. Influenza screen came negative. CT scan of abdomen, pelvis, and chest were performed. CT chest showed bilateral infiltrate, suggesting extensive pneumonia and effusions. CT abdomen and pelvis showed distended stomach, no diverticulitis, enlarged uterus, plus inflammatory changes in lower pelvis, and question ovarian cyst. . Multiple consultations were called including renal, pulmonary, hematology, and oncology consultations. PAST MEDICAL HISTORY: Includes hypertension, anemia, menorrhagia with vaginal clots during mensuration. She was put on control pill. Anemia followed by manager baby as outpatient basis. ALLERGIES: NKDA. MEDICATIONS: See medication reconciliation sheet. Antibiotic gasca, the patient had received Bactrim on 07/21/2017. It was followed by Julio. SOCIAL HISTORY: The patient lives at home. She denies any smoking, alcohol, or drug use. She also takes care of her mother. FAMILY HISTORY: Hypertension. TRAVEL HISTORY: None. ILL-CONTACTS: None. REVIEW OF SYSTEMS: GENERAL: The patient complained of fever and chills. The patient also complained of generalized weakness. HEENT: Denies any diplopia, photophobia, sore throat, or congestion. RESPIRATORY: The patient denies any cough. CVS: The patient denies any chest pain, no palpitation. GASTROINTESTINAL: The patient denies any nausea or vomiting. She has moderate diarrhea started today. GENITOURINARY: Denies any abdominal pain. The patient has abdominal discomfort. MUSCULOSKELETAL: The patient complains of the pain in the bilateral hip and thigh. The patient also complains of numbness of extremities. GENITOURINARY: The patient has dysuria. The patient was on control pills because of menorrhagia with clots. NEUROLOGIC: The patient complains of headaches. No dizziness. No focal weakness. SKIN: The patient has multiple ecchymotic area on upper and lower extremity involving hands and soles. Worst affect areas are bilateral thighs. There is some mild ecchymosis on the medial aspect. No active bleeding, although the patient had active bleeding through the puncture site in the right decubital area, required pressure dressing. Now, bleeding had stopped. PHYSICAL EXAMINATION: VITAL SIGNS: Shows temperature is 97.8, pulse 137, respirations 20, blood pressure 121/56, oxygen saturation 95%. The patient is comfortable. Well nourished and well developed. Not in acute distress, intubated orally, on the ventilator support. HEENT: Head is normocephalic, atraumatic. Oral cavity moist, pink tongue. Eyes: Pallor is present. Icterus present. Pupils PERRLA and EOMI. Both upper eyelids has ecchymotic area on the medial aspect. FACE: Symmetric. NECK: Supple, no JVD, no carotid bruits, no lymphadenopathy. No tenderness in the jaw area. No thyromegaly. CHEST: Bilateral vesicular sounds. No crackles or wheezing. HEART: S1, S2 within normal limits. Regular rhythm. No murmur, no gallop. ABDOMEN: Soft, nontender, nondistended. Bowel sounds present. EXTREMITIES: No cyanosis, no clubbing, no edema. The patient has some ecchymosis on both upper and lower extremities, worse in the lower extremity which involves soles, feet, and thighs. Worst affected area is thighs. Upper extremity, hands are also affect with fingers showing some ecchymotic area. There is some pre-ecchymotic discoloration of both forearms. B[employer]ING [employer] OFFICER: Alert, awake, and oriented x 3. No focal neuro deficit. The patient is stable, alert, awake, and communicative, even receiving propofol. LABORATORY DATA: Current labs shows WBC count is 3800, hemoglobin 11.5, hematocrit 34.5, platelets are 85,000, neutrophil is 57%, and bands are 28%. INR is 1.1, PT 11.5, PTT is 42.6. Fibrinogen 220 and D-dimer is 2560. ABG, Repeat ABG shows pH 7.46, PCO2 52, PO2 79, and bicarbonate 33.7 on FiO2 100%. Sodium is 124, potassium 3.9, chloride is 88, bicarbonate is 9.6, BUN is 59, creatinine 5.4, and glucose is 81. Lactic acid 12.91, calcium 6.5, total bilirubin 7.1, AST 137, ALT is 54, amylase is 276, and lipase is 19. test is negative. Salicylate less than 25. Acetaminophen less than 10. Influenza A and B screen is negative. CPK is 901. DIAGNOSTIC DATA: Chest x-ray pending. CT scan of the chest without contrast suggested extensive pneumonia with effusion. CT abdomen and pelvis without contrast suggested distended stomach, no hydro, no fluid, no diverticulitis, enlarged uterus, inflammatory changes in lower pelvis, ovarian cyst, and recommended ____. IMPRESSION: 1. Bandemia. 2. Neutropenia. 3. Thrombocytopenia. 4. Hypotension. 5. Suspect sepsis syndrome. 6. High lactic acid is going in favor either hepatic condition versus elevated lactic acid may be due to sepsis versus liver cirrhosis. 7. Multiorgan failure including renal failure, hepatic failure, circulatory failure, and respiratory failure. 8. Bilateral extensive infiltrate, may be pneumonia versus consider acute respiratory distress syndrome. 9. History of hypertension. 10. History of menorrhagia, on control pills. 11. Vent-dependent respiratory failure. 12. Metabolic acidosis with decompensated respiratory alkalosis. 13. Acute renal failure. 14. Liver cirrhosis. RECOMMENDATIONS: Vancomycin 1 gram is given. We will restart meropenem. Discontinue Zosyn because of thrombocytopenia. We will do autoimmune panel and restart Levaquin. The patient's condition is critical. Prognosis is guarded. I have discussed with her and he understood the condition well. Please refer to [facility]POE for further orders. Sepsis workup. Legionella mycoplasma serology. Pneumococcal antigen. Check the HIV screen. I have discussed with the patient's in detail and he understood the patient's condition and ____ at this moment. Thank you, Dr. Issac Haddad, for involving me in taking care of this patient. The patient was brought to the ICU. JOB# [id number]
[2017-07-23 09:01] VITALS: BP 143/127
--- NOTE | 2017-07-23 09:53 | Diagnostic Imaging Report ---
Portable chest x-ray HISTORY: Shortness of breath Compared to prior exam performed earlier in the day (1552 hours), there has developed a relatively large (greater than 60%) right pneumothorax. Loculated air collections noted in the right lower hemithorax. A loculated air collection also noted in left lower hemithorax. Adjacent pulmonary parenchymal density suggests possible atelectasis. Based on a CT scan performed earlier in the day (1557 hours), findings are consistent with loculated/cystic air collections. Exact etiology uncertain. Findings may be associated with a congenital abnormality, pneumatoceles, or inflammatory etiology. Clinical correlation is needed. An endotracheal tube tip is approximately 2.0 cm above the jace. IMPRESSION: 1. Interval development of relatively large (greater than 60%) right pneumothorax 2. Multiple loculated air collections within the right and to a lesser degree left hemithoracic areas. Exact etiology uncertain. Based on the earlier CT scan, changes related to congenital etiology, hematocele, or inflammatory process cannot be excluded. Clinical correlation is needed. 3. Endotracheal tube placement as noted above
--- NOTE | 2017-07-23 09:55 | Diagnostic Imaging Report ---
Portable chest x-ray HISTORY: Shortness of breath Compared with the prior exam of July 22, 2017, there has been a marked increase in size of a right pneumothorax (greater than 90%). Again noted is loculated air collection within the right and lesser degree left lower hemithoracic regions. The endotracheal tube tip is approximately 3.0 cm above the jace. IMPRESSION: 1. Increased right pneumothorax (greater than 90%). 2. Endotracheal tube placement as noted above 3. Loculated air collections within the right and left hemithoracic regions again noted. Exact etiology uncertain.
--- NOTE | 2017-07-23 10:48 | Diagnostic Imaging Report ---
Portable chest x-ray HISTORY: Pneumothorax, chest tube placement Compared with prior exam performed earlier in the day (0837 hours), a right chest tube has been inserted. The tip is in the right apical region. There is a decrease in the right pneumothorax now is approximately 30%. Again noted is focal radiolucency within the right and left lower hemithoracic areas consistent with underlying cystic changes. Again, the etiology is uncertain. An endotracheal tube tip is approximately 3.5 cm above the jace. IMPRESSION: 1. Right chest tube placement with a decrease in the right pneumothorax (approximately 30%). 2. Persistent loculated parenchymal air collections within the right and left lower hemithoracic areas. Etiology uncertain. 3. Endotracheal tube placement as noted above
--- NOTE | 2017-07-23 12:55 | GI Progress Note ---
Subjective - Review of Systems Subjective: INTUBATED SEDATED Objective - Results Result Diagrams: 07/23/17 03:48 07/23/17 Unknown Recent Labs: Laboratory Last Values WBC 5.5 Th/cmm (4.8-10.8) D 07/23/17 03:48 RBC 3.72 Mil/cmm (3.80-5.10) L 07/23/17 03:48 Hgb 9.2 gm/dL (12-16) L 07/23/17 03:48 Hct 27.7 % (41.0-60) L D 07/23/17 03:48 MCV 74.6 fl (81-100) L 07/23/17 03:48 MCH 24.7 pg (27.0-31.0) L 07/23/17 03:48 MCHC Differential 33.1 pg (28.0-36.0) 07/23/17 03:48 RDW 15.0 % (11.5-20.0) 07/23/17 03:48 Plt Count 98 Th/cmm (150-400) L 07/23/17 03:48 MPV 9.6 fl 07/23/17 03:48 Band Neutrophils % 28 % (0-10) H 07/22/17 10:55 Neutrophils (Manual) 57 % (40-80) 07/22/17 10:55 Lymphocytes 9 % (20-50) L 07/22/17 10:55 Monocytes 6 % (2-10) 07/22/17 10:55 Platelet Estimate SLIGHT DECREASED (NORMAL) 07/22/17 10:55 Anisocytosis 1+ 07/22/17 10:55 Microcytosis 2+ 07/22/17 10:55 ESR 20 mm/hr (0-30) 07/23/17 Unknown Plt Count 98 Th/cmm (150-750) L 07/23/17 03:48 PT 11.2 SECONDS (9.5-11.5) 07/23/17 03:48 INR 1.08 (0.5-1.4) 07/23/17 03:48 PTT (Actin FS) 42.3 SECONDS (26.0-38.0) H 07/23/17 03:48 Fibrinogen 206.0 mg/dL (200.0-400.0) 07/23/17 03:48 D-Dimer 2950 ng/mL (100-400) H 07/23/17 03:48 Specimen Source Arterial 07/23/17 21:55 Sample Site LB 07/23/17 21:55 pH 7.46 (7.35-7.45) H 07/23/17 21:55 pCO2 52.0 mmHg (35.0-45.0) H 07/23/17 21:55 pO2 79.0 mmHg (80.0-100.0) L 07/23/17 21:55 HCO3 33.7 mEq/L (20.0-26.0) H 07/23/17 21:55 Base Excess 11.3 mEq/L (-3.0-3.0) H 07/23/17 21:55 O2 Saturation 96.0 % (92.0-100.0) 07/23/17 21:55 Roland Test Positive 07/23/17 21:55 Vent Rate 24 07/23/17 21:55 Inspired O2 100 07/23/17 21:55 Tidal Volume 500 07/23/17 21:55 PEEP 5 07/23/17 21:55 Pressure (ins/psv/peep) N/A 07/23/17 21:55 Critical Value HSTEHNO 07/23/17 21:55 Sodium 132 mEq/L (136-145) L 07/23/17 Unknown Potassium 3.9 mEq/L (3.5-5.1) 07/23/17 Unknown Chloride 88 mEq/L (98-107) L 07/23/17 Unknown Carbon Dioxide 15.1 mEq/L (21.0-31.0) L 07/23/17 Unknown Anion Gap 32.8 (7.0-16.0) H 07/23/17 Unknown BUN 59 mg/dL (7-25) H 07/23/17 Unknown Creatinine 5.4 mg/dL (0.6-1.2) H* 07/23/17 Unknown Est GFR ( Amer) 11.5 ml/min (>90) 07/23/17 Unknown Est GFR (Non-Af Amer) 9.5 ml/min 07/23/17 Unknown BUN/Creatinine Ratio 10.9 07/23/17 Unknown Glucose 90 mg/dL (70-105) 07/23/17 Unknown Whole Bld Lactic Acid 14.58 mmol/L (0.60-1.99) H* 07/23/17 03:48 Uric Acid 7.7 mg/dL (2.3-6.6) H 07/23/17 Unknown Calcium 5.8 mg/dL (8.6-10.3) L* 07/23/17 Unknown Phosphorus 6.8 mg/dL (2.5-5.0) H 07/23/17 Unknown Magnesium 1.5 mg/dL (1.9-2.7) L 07/23/17 Unknown Total Bilirubin 7.3 mg/dL (0.3-1.0) H 07/23/17 Unknown Direct Bilirubin 4.34 mg/dL (0.0-0.2) H 07/23/17 Unknown AST 154 U/L (13-39) H 07/23/17 Unknown ALT 51 U/L (7-52) 07/23/17 Unknown Alkaline Phosphatase 61 U/L (34-104) 07/23/17 Unknown Creatine Kinase 2864 U/L (30-223) H 07/23/17 Unknown CK-MB (CK-2) 95.3 ng/mL (0.6-6.3) H 07/23/17 Unknown Troponin I 0.07 ng/mL (0.01-0.05) H* 07/22/17 10:55 C-Reactive Protein 43.4 mg/dL (0.0-0.9) H 07/23/17 03:48 B-Natriuretic Peptide 511.0 pg/mL (5.0-100.0) H 07/22/17 10:55 Total Protein 3.9 gm/dL (6.0-8.3) L 07/23/17 Unknown Albumin 2.1 gm/dL (3.7-5.3) L 07/23/17 Unknown Globulin 1.8 gm/dL 07/23/17 Unknown Albumin/Globulin Ratio 1.2 (1.0-1.8) 07/23/17 Unknown Triglycerides 536 mg/dL (<150) H 07/22/17 10:55 Cholesterol 129 mg/dL (<200) 07/22/17 10:55 LDL Cholesterol Direct 23 mg/dL (75-193) L 07/22/17 10:55 HDL Cholesterol 15 mg/dL (23-92) L 07/22/17 10:55 Amylase 276 U/L (29-103) H 07/22/17 19:04 Lipase 19 U/L (11-82) 07/22/17 19:04 Serum , Qual NEGATIVE (NEGATIVE) 07/22/17 10:55 Urine Source [place] 07/23/17 03:48 Urine Color ORANGE 07/23/17 03:48 Urine Clarity HAZY (CLEAR) 07/23/17 03:48 Urine pH 7.0 (4.6 - 8.0) 07/23/17 03:48 Ur Specific [place] 1.010 (1.005-1.030) 07/23/17 03:48 Urine Protein 100 mg/dL (NEGATIVE) H 07/23/17 03:48 Urine Glucose (UA) NEGATIVE mg/dL (NEGATIVE) 07/23/17 03:48 Urine Ketones NEGATIVE mg/dL (NEGATIVE) 07/23/17 03:48 Urine Blood LARGE (NEGATIVE) H 07/23/17 03:48 Urine Nitrate NEGATIVE (NEGATIVE) 07/23/17 03:48 Urine Bilirubin NEGATIVE (NEGATIVE) 07/23/17 03:48 Urine Urobilinogen 0.2 E.U./dL (0.2 - 1.0) 07/23/17 03:48 Ur Leukocyte Esterase NEGATIVE (NEGATIVE) 07/23/17 03:48 Urine RBC 50-100 /hpf (0-5) H 07/23/17 03:48 Urine WBC 2-5 /hpf (0-5) 07/23/17 03:48 Ur Epithelial Cells MODERATE /lpf (FEW) 07/23/17 03:48 Urine Bacteria FEW /hpf (NONE SEEN) 07/23/17 03:48 Stool Occult Blood NEGATIVE (NEGATIVE) 07/23/17 03:15 Stool Leukocyte NO WBC SEEN 07/23/17 03:15 Salicylates < 25.0 mg/L (30.0-100.0) L 07/22/17 10:55 Urine Opiates Screen NEGATIVE (NEGATIVE) 07/23/17 03:45 Urine Methadone Screen NEGATIVE (NEGATIVE) 07/23/17 03:45 Acetaminophen < 10.0 ug/mL (10.0-30.0) L 07/22/17 10:55 Ur Barbiturates Screen NEGATIVE (NEGATIVE) 07/23/17 03:45 Ur Tricyclics Screen NEGATIVE (NEGATIVE) 07/23/17 03:45 Ur Phencyclidine Scrn NEGATIVE (NEGATIVE) 07/23/17 03:45 Amphetamines Screen NEGATIVE (NEGATIVE) 07/23/17 03:45 U Methamphetamines Scrn NEGATIVE (NEGATIVE) 07/23/17 03:45 U Benzodiazepines Scrn NEGATIVE (NEGATIVE) 07/23/17 03:45 U Cocaine Metab Screen NEGATIVE (NEGATIVE) 07/23/17 03:45 U Cannabinoids Screen NEGATIVE (NEGATIVE) 07/23/17 03:45 HIV 1&2 Antibody Screen NEGATIVE (NEG) 07/23/17 03:48 Influenza A (Rapid) NEG FOR INF A 07/22/17 19:20 Influenza B (Rapid) NEG FOR INF B 07/22/17 19:20 - Physical Exam Vitals and I&O: Vital Signs Temp 97.6 F 07/23/17 08:15 Pulse 135 07/23/17 11:51 Resp 27 07/23/17 08:15 BP 143/127 07/23/17 09:01 Pulse Ox 95 07/23/17 11:51 Intake & Output 07/22/17 07/23/17 07/23/17 18:59 06:59 18:59 Intake Total 10.513 Balance 10.513 Intake: Intake, IV Amount 10.513 Propofol 1,000 mg In 100 10.513 ml @ 5 MCG/KG/MIN 1.823 mls/hr IV TITR [facility] Rx#: [id number] Active Medications: Current Medications Heparin Sodium (Porcine) (Heparin) 5,000 units SUBQ NOW ONE Stop: 07/23/17 12:48 Sodium Bicarbonate 150 meq/ (Dextrose) 1,150 mls @ 175 mls/hr IV .[id number] [facility] Last Admin: 07/23/17 08:44 Dose: 175 mls/hr Calcium Gluconate 1 gm/ Sodium (Chloride) 110 mls @ 100 mls/hr IV Q8H [facility] Stop: 07/24/17 21:29 Last Infusion: 07/23/17 06:45 Dose: Infused Propofol (Diprivan) 1,000 mg in 100 mls @ 1.823 mls/hr IV TITR WALLACE; 5 MCG/KG/ MIN PRN Reason: Protocol Stop: 09/20/17 21:49 Last Titration: 07/23/17 07:25 Dose: 14 mcg/kg/min, 5.106 mls/hr Levofloxacin (Levaquin Pb) 250 mg in 50 mls @ 50 mls/hr IV Q48HR [facility] Stop: 09/22/17 04:59 Meropenem 500 mg/ Sodium (Chloride) 50 mls @ 100 mls/hr IV Q12H [facility] Stop: 09/21/17 03:26 Albumin Human (Albuminar 25%) 25 gm in 100 mls @ 40 mls/hr IV X1 ONE Stop: 07/23/17 13:07 Miscellaneous (Vancomycin Iv Per Pharmacy) 1 ea MC PRN [facility] Stop: 09/21/17 09:44 Assessment/Plan - Problem List Patient Problems: All Active Problems DYSPNEA WITH BODY ACHES AND NUMBNESS (Acute) - Assessment Assessment: 36 YO FEMALE WITH SEPTIC SHOCK ON UNKNOWN ETIOLOGY LFTS ARE ELEVATED CT SHOWED NO ABNORMALITIES WITH REGARD TO THE LIVER OR GB 1.CHECK NICOLE 2.CHECK HIDA 3.WILL NEED MRCP WHEN STABLE 4.FOLLOW LFTS 5.CHECK LIVER LABS FOR CHRONIC LIVER DZ 6.NEED HEME/ONC EVAL FOR ITP 7.CONT SUPP CARE
[2017-07-23] MEDS ORDERED: Heparin Sodium 1,000 Units/mL Vial ONE ×2 (13:11→16:28)
--- NOTE | 2017-07-23 13:17 | General Progress Note ---
Subjective - Review of Systems Service Date: 07/23/17 Subjective: Patient seen and examined. Chart reviewed. Patient was awake alert intubated Family was at the bedside Objective - Results Result Diagrams: 07/23/17 03:48 07/23/17 Unknown Recent Labs: Laboratory Last Values WBC 5.5 Th/cmm (4.8-10.8) D 07/23/17 03:48 RBC 3.72 Mil/cmm (3.80-5.10) L 07/23/17 03:48 Hgb 9.2 gm/dL (12-16) L 07/23/17 03:48 Hct 27.7 % (41.0-60) L D 07/23/17 03:48 MCV 74.6 fl (81-100) L 07/23/17 03:48 MCH 24.7 pg (27.0-31.0) L 07/23/17 03:48 MCHC Differential 33.1 pg (28.0-36.0) 07/23/17 03:48 RDW 15.0 % (11.5-20.0) 07/23/17 03:48 Plt Count 98 Th/cmm (150-400) L 07/23/17 03:48 MPV 9.6 fl 07/23/17 03:48 Band Neutrophils % 28 % (0-10) H 07/22/17 10:55 Neutrophils (Manual) 57 % (40-80) 07/22/17 10:55 Lymphocytes 9 % (20-50) L 07/22/17 10:55 Monocytes 6 % (2-10) 07/22/17 10:55 Platelet Estimate SLIGHT DECREASED (NORMAL) 07/22/17 10:55 Anisocytosis 1+ 07/22/17 10:55 Microcytosis 2+ 07/22/17 10:55 ESR 20 mm/hr (0-30) 07/23/17 Unknown Plt Count 98 Th/cmm (150-750) L 07/23/17 03:48 PT 11.2 SECONDS (9.5-11.5) 07/23/17 03:48 INR 1.08 (0.5-1.4) 07/23/17 03:48 PTT (Actin FS) 42.3 SECONDS (26.0-38.0) H 07/23/17 03:48 Fibrinogen 206.0 mg/dL (200.0-400.0) 07/23/17 03:48 D-Dimer 2950 ng/mL (100-400) H 07/23/17 03:48 Specimen Source Arterial 07/23/17 21:55 Sample Site LB 07/23/17 21:55 pH 7.46 (7.35-7.45) H 07/23/17 21:55 pCO2 52.0 mmHg (35.0-45.0) H 07/23/17 21:55 pO2 79.0 mmHg (80.0-100.0) L 07/23/17 21:55 HCO3 33.7 mEq/L (20.0-26.0) H 07/23/17 21:55 Base Excess 11.3 mEq/L (-3.0-3.0) H 07/23/17 21:55 O2 Saturation 96.0 % (92.0-100.0) 07/23/17 21:55 Roland Test Positive 07/23/17 21:55 Vent Rate 24 07/23/17 21:55 Inspired O2 100 07/23/17 21:55 Tidal Volume 500 07/23/17 21:55 PEEP 5 07/23/17 21:55 Pressure (ins/psv/peep) N/A 07/23/17 21:55 Critical Value HSTEHNO 07/23/17 21:55 Sodium 132 mEq/L (136-145) L 07/23/17 Unknown Potassium 3.9 mEq/L (3.5-5.1) 07/23/17 Unknown Chloride 88 mEq/L (98-107) L 07/23/17 Unknown Carbon Dioxide 15.1 mEq/L (21.0-31.0) L 07/23/17 Unknown Anion Gap 32.8 (7.0-16.0) H 07/23/17 Unknown BUN 59 mg/dL (7-25) H 07/23/17 Unknown Creatinine 5.4 mg/dL (0.6-1.2) H* 07/23/17 Unknown Est GFR ( Amer) 11.5 ml/min (>90) 07/23/17 Unknown Est GFR (Non-Af Amer) 9.5 ml/min 07/23/17 Unknown BUN/Creatinine Ratio 10.9 07/23/17 Unknown Glucose 90 mg/dL (70-105) 07/23/17 Unknown Whole Bld Lactic Acid 14.58 mmol/L (0.60-1.99) H* 07/23/17 03:48 Uric Acid 7.7 mg/dL (2.3-6.6) H 07/23/17 Unknown Calcium 5.8 mg/dL (8.6-10.3) L* 07/23/17 Unknown Phosphorus 6.8 mg/dL (2.5-5.0) H 07/23/17 Unknown Magnesium 1.5 mg/dL (1.9-2.7) L 07/23/17 Unknown Total Bilirubin 7.3 mg/dL (0.3-1.0) H 07/23/17 Unknown Direct Bilirubin 4.34 mg/dL (0.0-0.2) H 07/23/17 Unknown AST 154 U/L (13-39) H 07/23/17 Unknown ALT 51 U/L (7-52) 07/23/17 Unknown Alkaline Phosphatase 61 U/L (34-104) 07/23/17 Unknown Creatine Kinase 2864 U/L (30-223) H 07/23/17 Unknown CK-MB (CK-2) 95.3 ng/mL (0.6-6.3) H 07/23/17 Unknown Troponin I 0.07 ng/mL (0.01-0.05) H* 07/22/17 10:55 C-Reactive Protein 43.4 mg/dL (0.0-0.9) H 07/23/17 03:48 B-Natriuretic Peptide 511.0 pg/mL (5.0-100.0) H 07/22/17 10:55 Total Protein 3.9 gm/dL (6.0-8.3) L 07/23/17 Unknown Albumin 2.1 gm/dL (3.7-5.3) L 07/23/17 Unknown Globulin 1.8 gm/dL 07/23/17 Unknown Albumin/Globulin Ratio 1.2 (1.0-1.8) 07/23/17 Unknown Triglycerides 536 mg/dL (<150) H 07/22/17 10:55 Cholesterol 129 mg/dL (<200) 07/22/17 10:55 LDL Cholesterol Direct 23 mg/dL (75-193) L 07/22/17 10:55 HDL Cholesterol 15 mg/dL (23-92) L 07/22/17 10:55 Amylase 276 U/L (29-103) H 07/22/17 19:04 Lipase 19 U/L (11-82) 07/22/17 19:04 Serum , Qual NEGATIVE (NEGATIVE) 07/22/17 10:55 Urine Source [place] 07/23/17 03:48 Urine Color ORANGE 07/23/17 03:48 Urine Clarity HAZY (CLEAR) 07/23/17 03:48 Urine pH 7.0 (4.6 - 8.0) 07/23/17 03:48 Ur Specific Starr 1.010 (1.005-1.030) 07/23/17 03:48 Urine Protein 100 mg/dL (NEGATIVE) H 07/23/17 03:48 Urine Glucose (UA) NEGATIVE mg/dL (NEGATIVE) 07/23/17 03:48 Urine Ketones NEGATIVE mg/dL (NEGATIVE) 07/23/17 03:48 Urine Blood LARGE (NEGATIVE) H 07/23/17 03:48 Urine Nitrate NEGATIVE (NEGATIVE) 07/23/17 03:48 Urine Bilirubin NEGATIVE (NEGATIVE) 07/23/17 03:48 Urine Urobilinogen 0.2 E.U./dL (0.2 - 1.0) 07/23/17 03:48 Ur Leukocyte Esterase NEGATIVE (NEGATIVE) 07/23/17 03:48 Urine RBC 50-100 /hpf (0-5) H 07/23/17 03:48 Urine WBC 2-5 /hpf (0-5) 07/23/17 03:48 Ur Epithelial Cells MODERATE /lpf (FEW) 07/23/17 03:48 Urine Bacteria FEW /hpf (NONE SEEN) 07/23/17 03:48 Stool Occult Blood NEGATIVE (NEGATIVE) 07/23/17 03:15 Stool Leukocyte NO WBC SEEN 07/23/17 03:15 Salicylates < 25.0 mg/L (30.0-100.0) L 07/22/17 10:55 Urine Opiates Screen NEGATIVE (NEGATIVE) 07/23/17 03:45 Urine Methadone Screen NEGATIVE (NEGATIVE) 07/23/17 03:45 Acetaminophen < 10.0 ug/mL (10.0-30.0) L 07/22/17 10:55 Ur Barbiturates Screen NEGATIVE (NEGATIVE) 07/23/17 03:45 Ur Tricyclics Screen NEGATIVE (NEGATIVE) 07/23/17 03:45 Ur Phencyclidine Scrn NEGATIVE (NEGATIVE) 07/23/17 03:45 Amphetamines Screen NEGATIVE (NEGATIVE) 07/23/17 03:45 U Methamphetamines Scrn NEGATIVE (NEGATIVE) 07/23/17 03:45 U Benzodiazepines Scrn NEGATIVE (NEGATIVE) 07/23/17 03:45 U Cocaine Metab Screen NEGATIVE (NEGATIVE) 07/23/17 03:45 U Cannabinoids Screen NEGATIVE (NEGATIVE) 07/23/17 03:45 HIV 1&2 Antibody Screen NEGATIVE (NEG) 07/23/17 03:48 Influenza A (Rapid) NEG FOR INF A 07/22/17 19:20 Influenza B (Rapid) NEG FOR INF B 07/22/17 19:20 - Physical Exam Vitals and I&O: Vital Signs Temp 97.6 F 07/23/17 08:15 Pulse 135 07/23/17 11:51 Resp 27 07/23/17 08:15 BP 143/127 07/23/17 09:01 Pulse Ox 95 07/23/17 11:51 Intake & Output 07/22/17 07/23/17 07/23/17 18:59 06:59 18:59 Intake Total 10.513 Balance 10.513 Intake: Intake, IV Amount 10.513 Propofol 1,000 mg In 100 10.513 ml @ 5 MCG/KG/MIN 1.823 mls/hr IV TITR [facility] Rx#: [id number] Active Medications: Current Medications Sodium Bicarbonate 150 meq/ (Dextrose) 1,150 mls @ 175 mls/hr IV .[id number] [facility] Last Admin: 07/23/17 08:44 Dose: 175 mls/hr Calcium Gluconate 1 gm/ Sodium (Chloride) 110 mls @ 100 mls/hr IV Q8H [facility] Stop: 07/24/17 21:29 Last Infusion: 07/23/17 06:45 Dose: Infused Propofol (Diprivan) 1,000 mg in 100 mls @ 1.823 mls/hr IV TITR [facility]ACE; 5 MCG/KG/ MIN PRN Reason: Protocol Stop: 09/20/17 21:49 Last Titration: 07/23/17 07:25 Dose: 14 mcg/kg/min, 5.106 mls/hr Levofloxacin (Levaquin Pb) 250 mg in 50 mls @ 50 mls/hr IV Q48HR [facility] Stop: 09/22/17 04:59 Meropenem 500 mg/ Sodium (Chloride) 50 mls @ 100 mls/hr IV Q12H [facility] Stop: 09/21/17 03:26 Albumin Human (Albuminar 25%) 25 gm in 100 mls @ 40 mls/hr IV X1 ONE Stop: 07/23/17 13:07 Sodium Chloride (Nacl 0.9%) 250 mls @ 10 mls/hr IV ONCE ONE Stop: 07/24/17 14:59 Miscellaneous (Vancomycin Iv Per Pharmacy) 1 ea MC PRN [facility]ACE Stop: 09/21/17 09:44 General: No acute distress Cardiovascular: no Other (tachycardia) Lungs: Other (rales) Abdomen: Soft, no Tender, no Distended Extremities: Cyanosis Skin: Other (echymosis bilateral thigh area) Assessment/Plan - Problem List Patient Problems: All Active Problems DYSPNEA WITH BODY ACHES AND NUMBNESS (Acute) - Assessment Assessment: Septic shock Severe Gm positive septicemia Acute respiratory failure on vent Acute renal failure Elevated liver enzymes DIC Rhabdomyolysis Severe lactic acidosis Right sided Pneumothorax - Plan Plan: Continue ICU care Vent support Broad spectrum antibiotics High flow Bicarbonate drip Fluid resuscitation Case discussed with Nephrology( DR GIRON ) this am re: initiation of HD . Awaiting final decision Vasopressor as needed Case discussed with Pulmonary Cardiology and Hematology Agreed with current treatment I have been communicating with Case management in regards for higher level of care transfer once patient is stable Per case management patient's health plan was contacted last night Awaiting transfer approval. Patient is still on high FiO2 on vent. S/p Chest tube placement for Pneumothorax I updated patient and family was at the bedside re patient's critical condition and plan of care . They understood well. Plan of care discussed with nursing staff Poor prognosis
--- NOTE | 2017-07-23 13:58 | Diagnostic Imaging Report ---
Bilateral lower extremity Doppler venous ultrasound exam HISTORY: Pain/swelling Sonographic sector images were obtained through the deep venous systems of both legs. Associated Doppler data was obtained. The exam demonstrates patency of the common femoral, superficial femoral, popliteal, and posterior tibial veins bilaterally. Specifically, no thrombus is seen. There are normal compressibility and augmentation responses. IMPRESSION: Negative exam for deep vein thrombophlebitis.
--- NOTE | 2017-07-23 13:58 | Diagnostic Imaging Report ---
Abdominal ultrasound HISTORY: Jaundice The exam is very limited and suboptimal due to difficulty in patient cooperation and positioning. The liver exhibits a homogeneous parenchyma. No focal lesions. The gallbladder is not well seen and appears contracted. In a fasting patient, the finding may reflect underlying gallbladder disease. The common bile duct could not be visualized. No intrahepatic biliary dilatation. Pancreas cannot be seen well due to bowel gas. The kidneys appear normal bilaterally. No focal lesions. No hydronephrosis. The spleen is normal in size. No other retroperitoneal or intra-abdominal abnormalities. IMPRESSION: 1. Very Limited/suboptimal exam due to difficulty in patient cooperation and positioning 2. Poorly visualized gallbladder that appears contracted. In a fasting patient, such findings may reflect underlying gallbladder disease. Clinical correlation correlation laboratory data needed. If necessary, a radionuclide biliary scan (HIDA scan) would provide further assessment of gallbladder function.
[2017-07-23] MEDS ORDERED: Sodium Chloride 0.9% 250 ML IV ONE (14:00)
--- NOTE | 2017-07-23 14:40 | Consultation ---
DATE OF CONSULTATION: 07/23/2017 HISTORY AND PHYSICAL: This is a 36-year-old female patient who had been complaining of shortness of breath, weakness, tiredness, fever, sinus infection. The patient came to the Emergency Room. The patient was at the present time, with septic shock, hypotension, on ventilator. Once the patient was started on Levophed, the patient had episode of supraventricular tachycardia at the rate of 200 per minute where the patient was given IV Cardizem. The patient is admitted. The patient is extremely sick and critical. PAST MEDICAL HISTORY: Hypertension, menorrhagia, iron deficiency anemia. FAMILY HISTORY: Unremarkable. SOCIAL HISTORY: No history of smoking, alcohol abuse. ALLERGIES: No known allergies. PHYSICAL EXAMINATION: VITAL SIGNS: Blood pressure 80 systolic on Levophed, pulse 110, respiration on ventilator. HEAD: Normocephalic. No lumps or bumps. EYES: Pupils equal, reactive to light. Fundi show AV nicking. Sclerae white. Conjunctivae pink. NECK: Carotid 2+. Normal upstroke. JVD flat. Thyroid not palpable. Lymph nodes not palpable. CHEST: Shows increased AP diameter. No kyphosis, scoliosis. LUNGS: Bilateral wheezing, rhonchi, prolonged expiration. HEART: PMI fifth intercostal space with lateral to midclavicular line. S1, S2. No S3. Soft S4. Systolic murmur, grade 2/6, lower left sternal border without radiation. ABDOMEN: Soft, mild tenderness. No rebound tenderness. Bowel sounds active. RECTAL: Deferred. EXTREMITIES: Peripheral pulses 2+. No pedal edema. CLINICAL IMPRESSION: Acute respiratory failure, on ventilator, septic shock, hypotension, lactic acidosis, supraventricular tachycardia, bilateral pneumonia, pleural effusion, iron deficiency anemia, thrombocytopenia, acute renal failure secondary to rhabdomyolysis, acute hepatic failure. PLAN: The patient to be continued on Levophed, heart rate will be controlled by Cardizem. We will also get echocardiogram and a possible Bal catheter for dialysis. JOB# [id number]
[2017-07-23] MEDS: Meropenem 500 MG in Sodium Chloride 0.9% 50 ML IV SCH ×2 (15:16→21:14)
--- NOTE | 2017-07-23 15:16 | Diagnostic Imaging Report ---
Radionuclide ventilation lung scan HISTORY: Shortness of breath 40 mCi technetium DTPA aerosol was administered. Acquired images are nondiagnostic. The examination was canceled by Dr. Earl (2100 hours).
--- NOTE | 2017-07-23 15:20 | Consultation ---
DATE OF CONSULTATION: 07/23/2017 RENAL AND CRITICAL CARE CONSULT ADDENDUM LABORATORY DATA: D-dimer 2950, PTT 42.3, pH 7.4, pCO2 of 20, pO2 200, bicarbonate 18. Last serum sodium 132, potassium 3.9, chloride 91, CO2 13.6, BUN 57, creatinine 5.3, lactic acid level 14.5, calcium 6.0, previous calcium was 6.5, albumin 2.6, triglyceride 536, amylase 276, bilirubin 7.1, AST 137 and ALT 54. Urinalysis: PH 7.0, specific gravity 1.010, urine blood large, nitrite negative, leukocyte esterase negative. IMPRESSION: 1. Acute kidney injury, etiology not clear. 2. Septic shock. 3. Multiorgan failure. 4. Respiratory failure. 5. Pneumothorax. 6. Coagulopathy with thrombocytopenia. 7. Worsening of anemia. 8. Elevated LFTs. 9. Hyponatremia. 10. Severe hypocalcemia. 11. Elevated LFT with bilirubin. 12. Large lactic acidosis. 13. Persistent tachycardia. PLAN: The patient has been started and will continue on IV bicarbonate drip and IV bicarbonate push due to severe large lactic acidosis. The patient is receiving about 200-250 mL per hour IV fluids. We will start patient on IV albumin for the blood pressure support. The patient has been started on IV antibiotics. The patient has persistent tachycardia and pneumothorax and coagulopathy. These are the limiting factors for the dialysis treatment in this hospital at this time. The patient may have a more risk with the dialysis than the advantage at this time. This has been discussed with Dr. Haddad multiple times with Emergency Room staff including physician and the ICU staff. We will continue managing the patient medically and monitoring her very closely. If patient's condition improves, then we will consider dialysis. The patient may benefit with a tertiary care transfer and so this has been notified to the geriatric social worker and adult protective caseworker. Case has been discussed with the patient's father at length at bedside. All questions have been answered. Total time spent on the management of this patient so far is almost about 2 hours. JOB# [id number]
--- NOTE | 2017-07-23 15:24 | Consultation ---
DATE OF CONSULTATION: INCOMPLETE DICTATION RENAL AND CRITICAL CARE CONSULTATION LOCATION: [facility] ICU bed 7. ATTENDING PHYSICIAN: Dr. Ten Haddad. I thank you very much, Dr. Haddad for this consult. INDICATIONS: This is a 36-year-old female patient on a respirator. History has been taken by discussing with Emergency Room physician, Emergency Room nursing staff, Dr. Haddad, the patient's father who is bedside at this time. HISTORY OF PRESENT ILLNESS: This is a 36-year-old female patient who was in her usual health until about 4-5 days ago. The patient is a known case of hypertension for that she is being treated with beta blockers. She takes that very regularly. The patient about 4-5 days ago started having flu-like symptoms. The patient went to the local Emergency Room and was given some antibiotic and medication. The patient did not improve, continued to get worse. The patient again came to the Emergency Room yesterday. At that time, the patient was found to have a lung infiltrate, renal failure, severe tachycardia, fever. The patient has been admitted. The patient was started on IV hydration. The patient has a severe acidosis, renal failure, and large lactic acidosis. The patient has received large amount of IV fluids, IV bicarbonate. In spite of that, the patient has a persistent acidosis and renal failure. The patient subsequently developed respiratory failure, was intubated. Post ____ intubation, the patient was found to have a pneumothorax and so the patient has undergone right-sided chest tube placement. Meanwhile, the patient has also been started on IV antibiotics. The patient has been seen by marketing data specialist, Infectious Disease specialist, Vascular Surgeon, Damper Fitter, and Aircraft Systems Repairer. Renal consultation has been requested to help manage renal failure. SOCIAL HISTORY: No history of alcoholism or smoking. PAST MEDICAL AND SURGICAL HISTORY: As stated above, the patient has a history of hypertension, treated with beta-josep. The patient also has a history of surgery in the past. There is no history of anuria, oliguria, hematuria, or dysuria prior to this admission. There is no prior history of kidney stone, renal failure, lupus. There is no history of any lymphadenopathy, any skin changes. There is no history of any heavy metal ingestion. There is no history of recent travel or similar sickness in the immediate family members. There is no history of diabetes mellitus or hyperlipidemia in the past. PHYSICAL EXAMINATION: VITAL SIGNS: Heart rate 145. The patient has a persistent tachycardia with heart rate in the range of 130-150 since admission. Blood pressure 143/127, monitor blood pressure is 130/76 early this morning. At this time, blood pressure is 80/50 for last couple of hours. So far intake and output is about 6 liters of intake. Urine output is about 700 mL in the Cardoza catheter. HEAD: Normocephalic. EAR, NOSE, THROAT: No bleeding or discharge. LUNGS: Diffuse rhonchi both sides. HEART: Regular, tachycardia. ABDOMEN: Soft, bowel sounds present. EXTREMITIES: Trace edema. LABORATORY DATA AND DIAGNOSTIC DATA: Initial WBC 3.8, last WBC today 5.5; hemoglobin yesterday 11.5, at this time 9.2; and platelet count was 85,000, repeat is 98,000. PT/INR DICTATION ENDS ABRUPTLY. JOB# [id number]
[2017-07-23 15:25] LABS: HEMATOCRIT 22.4 % (41.0-60); MEAN CELL VOLUME 73.4 fl (81-100); MEAN CORPUSCULAR HEMOGLOBIN 25.4 pg (27.0-31.0); MEAN CORPUSCULAR HGB CONC 34.6 pg (28.0-36.0); MEAN PLATELET VOLUME 12.1 fl; RED BLOOD COUNT 3.06 Mil/cmm (3.80-5.10); RED CELL DISTRIBUTION WIDTH 14.7 % (11.5-20.0)
[2017-07-23 15:57] LABS: HEMOGLOBIN 7.8 gm/dL (12-16)
[2017-07-23 15:59] LABS: WHITE BLOOD COUNT 8.9 Th/cmm (4.8-10.8)
[2017-07-23 16:08] LABS: ALB/GLOB RATIO 1.5 (1.0-1.8); ALBUMIN 2.1 gm/dL (3.7-5.3); ANION GAP 39.1 (7.0-16.0); BILIRUBIN,TOTAL 6.6 mg/dL (0.3-1.0); CARBON DIOXIDE 15.3 mEq/L (21.0-31.0); GFR AFRICAN-AMERICAN 9.6 ml/min (>90); PHOSPHOROUS 6.8 mg/dL (2.5-5.0); POTASSIUM SERUM 3.4 mEq/L (3.5-5.1); TOTAL PROTEIN,SERUM 3.5 gm/dL (6.0-8.3)
[2017-07-23 16:13] LABS: pH 7.56 (7.35-7.45)
[2017-07-23 16:15] LABS: CALCIUM SERUM 5.4 mg/dL (8.6-10.3)
[2017-07-23 16:19] LABS: CREATININE - SERUM 6.3 mg/dL (0.6-1.2)
[2017-07-23 16:30] LABS: MANUAL DIFF REQUIRED? YES; PLATELET COUNT 54 Th/cmm (150-400)
[2017-07-23 16:46] LABS: BAND NEUTROPHILE 28 % (0-10); EOSINOPHIL 0 % (0-5); LYMPHOCYTE 10 % (20-50); MONOCYTE 10 % (2-10); NEUTROPHILS 52 % (40-80); TOTAL CELLS COUNTED 100
[2017-07-23 16:47] LABS: BASOPHIL 0 % (0-3); PLATELET ESTIMATE DECREASED PLATELETS (NORMAL); PLATELET MORPHOLOGY NORMAL (NORMAL)
--- NOTE | 2017-07-23 17:02 | General Progress Note ---
Subjective - Review of Systems Service Date: 07/23/17 Objective - Results Result Diagrams: 07/23/17 14:40 07/23/17 Unknown Recent Labs: Laboratory Last Values WBC 8.9 Th/cmm (4.8-10.8) D 07/23/17 14:40 RBC 3.06 Mil/cmm (3.80-5.10) L 07/23/17 14:40 Hgb 7.8 gm/dL (12-16) L* 07/23/17 14:40 Hct 22.4 % (41.0-60) L D 07/23/17 14:40 MCV 73.4 fl (81-100) L 07/23/17 14:40 MCH 25.4 pg (27.0-31.0) L 07/23/17 14:40 MCHC Differential 34.6 pg (28.0-36.0) 07/23/17 14:40 RDW 14.7 % (11.5-20.0) 07/23/17 14:40 Plt Count 54 Th/cmm (150-400) L D 07/23/17 14:40 MPV 12.1 fl 07/23/17 14:40 Band Neutrophils % 28 % (0-10) H 07/23/17 14:40 Neutrophils (Manual) 52 % (40-80) 07/23/17 14:40 Lymphocytes 10 % (20-50) L 07/23/17 14:40 Monocytes 10 % (2-10) 07/23/17 14:40 Eosinophils 0 % (0-5) 07/23/17 14:40 Basophils 0 % (0-3) 07/23/17 14:40 Platelet Estimate DECREASED PLATELETS (NORMAL) 07/23/17 14:40 Platelet Morphology NORMAL (NORMAL) 07/23/17 14:40 Anisocytosis 1+ 07/22/17 10:55 Microcytosis 3+ 07/23/17 14:40 RBC Morph Micro Appear ABNORMAL (NORMAL) 07/23/17 14:40 ESR 20 mm/hr (0-30) 07/23/17 Unknown Plt Count 98 Th/cmm (150-750) L 07/23/17 03:48 PT 11.2 SECONDS (9.5-11.5) 07/23/17 03:48 INR 1.08 (0.5-1.4) 07/23/17 03:48 PTT (Actin FS) 42.3 SECONDS (26.0-38.0) H 07/23/17 03:48 Fibrinogen 206.0 mg/dL (200.0-400.0) 07/23/17 03:48 D-Dimer 2950 ng/mL (100-400) H 07/23/17 03:48 Specimen Source Arterial 07/23/17 21:55 Sample Site LB 07/23/17 21:55 pH 7.46 (7.35-7.45) H 07/23/17 21:55 pCO2 52.0 mmHg (35.0-45.0) H 07/23/17 21:55 pO2 79.0 mmHg (80.0-100.0) L 07/23/17 21:55 HCO3 33.7 mEq/L (20.0-26.0) H 07/23/17 21:55 Base Excess 11.3 mEq/L (-3.0-3.0) H 07/23/17 21:55 O2 Saturation 96.0 % (92.0-100.0) 07/23/17 21:55 Roland Test Positive 07/23/17 21:55 Vent Rate 24 07/23/17 21:55 Inspired O2 100 07/23/17 21:55 Tidal Volume 500 07/23/17 21:55 PEEP 5 07/23/17 21:55 Pressure (ins/psv/peep) N/A 07/23/17 21:55 Critical Value HSTEHNO 07/23/17 21:55 Sodium 132 mEq/L (136-145) L 07/23/17 Unknown Potassium 3.9 mEq/L (3.5-5.1) 07/23/17 Unknown Chloride 88 mEq/L (98-107) L 07/23/17 Unknown Carbon Dioxide 15.1 mEq/L (21.0-31.0) L 07/23/17 Unknown Anion Gap 32.8 (7.0-16.0) H 07/23/17 Unknown BUN 59 mg/dL (7-25) H 07/23/17 Unknown Creatinine 5.4 mg/dL (0.6-1.2) H* 07/23/17 Unknown Est GFR ( Amer) 11.5 ml/min (>90) 07/23/17 Unknown Est GFR (Non-Af Amer) 9.5 ml/min 07/23/17 Unknown BUN/Creatinine Ratio 10.9 07/23/17 Unknown Glucose 90 mg/dL (70-105) 07/23/17 Unknown Whole Bld Lactic Acid 14.58 mmol/L (0.60-1.99) H* 07/23/17 03:48 Uric Acid 7.7 mg/dL (2.3-6.6) H 07/23/17 Unknown Calcium 5.8 mg/dL (8.6-10.3) L* 07/23/17 Unknown Phosphorus 6.8 mg/dL (2.5-5.0) H 07/23/17 Unknown Magnesium 1.5 mg/dL (1.9-2.7) L 07/23/17 Unknown Total Bilirubin 7.3 mg/dL (0.3-1.0) H 07/23/17 Unknown Direct Bilirubin 4.34 mg/dL (0.0-0.2) H 07/23/17 Unknown AST 154 U/L (13-39) H 07/23/17 Unknown ALT 51 U/L (7-52) 07/23/17 Unknown Alkaline Phosphatase 61 U/L (34-104) 07/23/17 Unknown Creatine Kinase 2864 U/L (30-223) H 07/23/17 Unknown CK-MB (CK-2) 95.3 ng/mL (0.6-6.3) H 07/23/17 Unknown Troponin I 0.07 ng/mL (0.01-0.05) H* 07/22/17 10:55 C-Reactive Protein 43.4 mg/dL (0.0-0.9) H 07/23/17 03:48 B-Natriuretic Peptide 511.0 pg/mL (5.0-100.0) H 07/22/17 10:55 Total Protein 3.9 gm/dL (6.0-8.3) L 07/23/17 Unknown Albumin 2.1 gm/dL (3.7-5.3) L 07/23/17 Unknown Globulin 1.8 gm/dL 07/23/17 Unknown Albumin/Globulin Ratio 1.2 (1.0-1.8) 07/23/17 Unknown Triglycerides 536 mg/dL (<150) H 07/22/17 10:55 Cholesterol 129 mg/dL (<200) 07/22/17 10:55 LDL Cholesterol Direct 23 mg/dL (75-193) L 07/22/17 10:55 HDL Cholesterol 15 mg/dL (23-92) L 07/22/17 10:55 Amylase 276 U/L (29-103) H 07/22/17 19:04 Lipase 19 U/L (11-82) 07/22/17 19:04 Serum , Qual NEGATIVE (NEGATIVE) 07/22/17 10:55 Urine Source [place] 07/23/17 03:48 Urine Color ORANGE 07/23/17 03:48 Urine Clarity HAZY (CLEAR) 07/23/17 03:48 Urine pH 7.0 (4.6 - 8.0) 07/23/17 03:48 Ur Specific [place] 1.010 (1.005-1.030) 07/23/17 03:48 Urine Protein 100 mg/dL (NEGATIVE) H 07/23/17 03:48 Urine Glucose (UA) NEGATIVE mg/dL (NEGATIVE) 07/23/17 03:48 Urine Ketones NEGATIVE mg/dL (NEGATIVE) 07/23/17 03:48 Urine Blood LARGE (NEGATIVE) H 07/23/17 03:48 Urine Nitrate NEGATIVE (NEGATIVE) 07/23/17 03:48 Urine Bilirubin NEGATIVE (NEGATIVE) 07/23/17 03:48 Urine Urobilinogen 0.2 E.U./dL (0.2 - 1.0) 07/23/17 03:48 Ur Leukocyte Esterase NEGATIVE (NEGATIVE) 07/23/17 03:48 Urine RBC 50-100 /hpf (0-5) H 07/23/17 03:48 Urine WBC 2-5 /hpf (0-5) 07/23/17 03:48 Ur Epithelial Cells MODERATE /lpf (FEW) 07/23/17 03:48 Urine Bacteria FEW /hpf (NONE SEEN) 07/23/17 03:48 Stool Occult Blood NEGATIVE (NEGATIVE) 07/23/17 03:15 Stool Leukocyte NO WBC SEEN 07/23/17 03:15 Salicylates < 25.0 mg/L (30.0-100.0) L 07/22/17 10:55 Urine Opiates Screen NEGATIVE (NEGATIVE) 07/23/17 03:45 Urine Methadone Screen NEGATIVE (NEGATIVE) 07/23/17 03:45 Acetaminophen < 10.0 ug/mL (10.0-30.0) L 07/22/17 10:55 Ur Barbiturates Screen NEGATIVE (NEGATIVE) 07/23/17 03:45 Ur Tricyclics Screen NEGATIVE (NEGATIVE) 07/23/17 03:45 Ur Phencyclidine Scrn NEGATIVE (NEGATIVE) 07/23/17 03:45 Amphetamines Screen NEGATIVE (NEGATIVE) 07/23/17 03:45 U Methamphetamines Scrn NEGATIVE (NEGATIVE) 07/23/17 03:45 U Benzodiazepines Scrn NEGATIVE (NEGATIVE) 07/23/17 03:45 U Cocaine Metab Screen NEGATIVE (NEGATIVE) 07/23/17 03:45 U Cannabinoids Screen NEGATIVE (NEGATIVE) 07/23/17 03:45 HIV 1&2 Antibody Screen NEGATIVE (NEG) 07/23/17 03:48 Influenza A (Rapid) NEG FOR INF A 07/22/17 19:20 Influenza B (Rapid) NEG FOR INF B 07/22/17 19:20 - Physical Exam Vitals and I&O: Vital Signs Temp 97.6 F 07/23/17 08:15 Pulse 140 07/23/17 15:55 Resp 27 07/23/17 08:15 BP 143/127 07/23/17 09:01 Pulse Ox 100 07/23/17 15:55 Intake & Output 07/22/17 07/23/17 07/23/17 18:59 06:59 18:59 Intake Total 1193.447 Balance 1193.447 Intake: Intake, IV Amount 1193.447 Propofol 1,000 mg In 100 43.447 ml @ 5 MCG/KG/MIN 1.823 mls/hr IV TITR [facility] Rx#: [id number] Sodium Bicarbonate 8.4% 1150 150 meq In Dextrose 5% 1, 000 ml @ 175 mls/hr IV . Q6H35M [facility] Rx#:[id number] Active Medications: Current Medications Hydrocortisone Sodium Succinate (Solu-Cortef) 50 mg IVP Q6HR [facility] Stop: 09/21/17 17:59 Sodium Bicarbonate 150 meq/ (Dextrose) 1,150 mls @ 175 mls/hr IV .Q6H35M [facility] Last Admin: 07/23/17 16:31 Dose: 175 mls/hr Calcium Gluconate 1 gm/ Sodium (Chloride) 110 mls @ 100 mls/hr IV Q8H [facility] Stop: 07/24/17 21:29 Last Admin: 07/23/17 16:30 Dose: 100 mls/hr Propofol (Diprivan) 1,000 mg in 100 mls @ 1.823 mls/hr IV TITR [facility]; 5 MCG/KG/ MIN PRN Reason: Protocol Stop: 09/20/17 21:49 Last Admin: 07/23/17 13:52 Dose: 14 mcg/kg/min, 5.106 mls/hr Levofloxacin (Levaquin Pb) 250 mg in 50 mls @ 50 mls/hr IV Q48HR [facility] Stop: 09/22/17 04:59 Meropenem 500 mg/ Sodium (Chloride) 50 mls @ 100 mls/hr IV Q12H [facility] Stop: 09/21/17 03:26 Last Admin: 07/23/17 15:16 Dose: 100 mls/hr Sodium Chloride (Nacl 0.9%) 250 mls @ 10 mls/hr IV ONCE ONE Stop: 07/24/17 14:59 Norepinephrine Bitartrate 4 mg (/ Dextrose) 254 mls @ 30.48 mls/hr IV TITR PRN ; Protocol; 8 MCG/MIN PRN Reason: BP MAINTENANCE (PER PROTOCOL) Stop: 09/21/17 14:59 Miscellaneous (Vancomycin Iv Per Pharmacy) 1 ea MC PRN [facility] Stop: 09/21/17 09:44 Oseltamivir Phosphate (Tamiflu) 30 mg PO DAILY [facility] Stop: 09/21/17 14:14 General: Alert, No acute distress HEENT: Atraumatic, Other (intubated) Neck: Other (right neck central line) Cardiovascular: no Other (tachycardia) Lungs: Other (rales) Abdomen: Soft, no Tender, no Distended Extremities: Cyanosis Skin: Other (echymosis bilateral thigh area) Assessment/Plan - Problem List Patient Problems: All Active Problems DYSPNEA WITH BODY ACHES AND NUMBNESS (Acute) - Assessment Assessment: * Septic shock * Renal failure * liver failure * Pneumothorax * Pneumonia * DIC TX FFP CHECK CORTISOLE START STEROIDS FOLLOW DIC PARAMETERS D/W DR. DILLON AND TROUNG Nutritional Asmnt/Malnutr-PDOC - Dietary Evaluation Malnutrition Findings (Please click <Entered> for more info): Nutritional Asmnt/Malnutrition Start: 07/23/17 13: 56 Text: Status: Complete Freq: Document 07/23/17 13:57 LORIE (Rec: 07/23/17 14:14 LORIE [email or web address]) Nutritional Asmnt/Malnutrition Patient General Information Nutritional Screening High Risk Diagnosis acute respiratory failure, PNA , sepsis Pertinent Medical Hx/Surgical Hx HTN, Subjective Information Pt seen in ICU busy with doctor and nurse. Per notes, pt was intubated, NPO status. Per MD notes 07/23, may initiate HD waiting final desicion. Current Diet Order/ Nutrition Support NPO Pertinent Medications Calcium gluconate, Levaquin, sodium bicarbonate, nacl 0.9%, propofol Pertinent Labs 07/23 Na 132, K 3.9, Cl 88, BUN 59, Cr 5.4, Glucose 90, Calcium 5.8, Phos 6.8, Mg 1.5, AST 154, ALT 51, Alb 2.1 Nutritional Hx/Data Height 1.52 m Height (Calculated Centimeters) 152.4 Current Weight (lbs) 60.781 kg Weight (Calculated Kilograms) 60.8 Weight (Calculated Grams) 19302.4 [place] Body Weight 100 % [place] Body Weight 134 Body Mass Index (BMI) 26.2 Weight Status Overweight GI Symptoms GI Symptoms None Current %PO Negligible < 25% Estimated Nutritional Goals BEE in Kcals: Using Current wt Calories/Kcals/Kg 30-35 Kcals Calculated 4457-3282 Protein: Using Current wt Protein g/k.2-1.4 monior renal labs Protein Calculated 73-85 Fluid: ml 8744-5347 or per MD d/t acute renal failure Nutritional Problem 1. Problem Problem altered nutrition related lab values Etiology imbalanced electrolytes, acute renal failure Signs/Symptoms: Na 132, K 3.9, Cl 88, BUN 59, Cr 5.4, Calcium 5.8, Phos 6.8, Mg 1.5 Intervention/Recommendation Comments 1. Monitor NPO status 2. If enteral feeding needed, recomend to start Novasource Renal 20ml/hr continuous, increase to goal rate of 40ml/ hr continuous as tolerated. This will provide 1920kcal, 87g protein and 699ml water, meeting 100% of calorie needs and 102% of protein needs, 3. F/U as high risk in 2 days, 1/ Expected Outcomes/Goals Expected Outcomes/Goals 1. Pt to meet at least 75% of nutritional needs in 2-3 days 2. Wt stability, skin to remain intact, labs to improve .
[2017-07-23] MEDS ORDERED: Probiotic Screen MC PRN (17:52)
[2017-07-23] MEDS: Hydrocortisone Sodium Succ 100 mg Vial IVP SCH (21:13)
[2017-07-23 22:03] LABS: MEAN CELL VOLUME 72.4 fl (81-100); MEAN CORPUSCULAR HGB CONC 35.9 pg (28.0-36.0); PLATELET COUNT 32 Th/cmm (150-400); RED CELL DISTRIBUTION WIDTH 14.3 % (11.5-20.0)
[2017-07-23 22:19] LABS: HEMATOCRIT 18.8 % (41.0-60); HEMOGLOBIN 6.8 gm/dL (12-16)
[2017-07-23 22:20] LABS: MANUAL DIFF REQUIRED? YES
[2017-07-23 22:24] LABS: WHITE BLOOD COUNT 10.4 Th/cmm (4.8-10.8)
[2017-07-24 01:18] LABS: BAND NEUTROPHILE 32 % (0-10); HYPOCHROMIA 1+; LYMPHOCYTE 9 % (20-50); NEUTROPHILS 59 % (40-80); PLATELET ESTIMATE DECREASED PLATELETS (NORMAL); POLYCHROMASIA 1+; TEAR DROP CELLS 2+; TOTAL CELLS COUNTED 100
[2017-07-24 01:19] LABS: STOMATOCYTE 1+
[2017-07-24] MEDS: Hydrocortisone Sodium Succ 100 mg Vial IVP SCH ×4 (02:10→21:21)
[2017-07-24] MEDS ORDERED: Levofloxacin 250mg/50mL 250 MG/50 ML BAG IV SCH (05:00)
[2017-07-24] MEDS: Calcium Gluconate 1 GM in Sodium Chloride 0.9% 100 ML IV SCH (06:00)
[2017-07-24] MEDS: Meropenem 500 MG in Sodium Chloride 0.9% 50 ML IV SCH ×2 (07:21→21:00)
[2017-07-24 08:08] LABS: IRON LC 39 ug/dL (27-159); TIBC (LC) 376 ug/dL (250-450); UIBC 337 ug/dL (131-425)
--- NOTE | 2017-07-24 08:21 | Diagnostic Imaging Report ---
Exam: Chest x-ray portable HISTORY: NG tube placement. Findings: Portable examination of the chest at the reviewed. The study demonstrates NG tube passes stomach. The right jugular catheter endotracheal tube right chest tube unchanged appearance. IMPRESSION NG tube in the stomach.
--- NOTE | 2017-07-24 08:23 | Diagnostic Imaging Report ---
Exam: Portable chest x-ray HISTORY: Placement of the central line. Findings: Portable summation of chest at 1640 was reviewed the study compared to prior study earlier same date demonstrates right jugular catheter terminates in superior vena cava. The endotracheal tube in the right chest tube unchanged appearance. IMPRESSION: the right jugular catheter with tip in superior vena cava.
--- NOTE | 2017-07-24 08:25 | Consultation ---
DATE OF CONSULTATION: 07/23/2017 THORACIC SURGICAL CONSULT REFERRING PHYSICIAN: Dr. Haddad. REASON FOR CONSULTATION: Right pneumothorax. Thank you for referring this patient to me. HISTORY OF PRESENT ILLNESS: The patient is a 36-year-old female who came in with some fever, shortness of breath and not feeling well for about 5 days. She has been seen once before in the Emergency Room, sent on oral antibiotics and had to come back because of increasing weakness. The chest x-ray showed right-sided pneumothorax and effusion as well as superimposed right lung lucency representing pneumatocele. A repeat chest x-ray showed a 90% pneumothorax and I was called by the radiologist about this reading for which an emergency placement of chest tube was requested by Dr. Earl. PHYSICAL EXAMINATION: GENERAL: The patient is poorly responsive. Family is at bedside. Informed consent discussed regarding placement of chest tube. [facility]# [id number]
--- NOTE | 2017-07-24 08:27 | Diagnostic Imaging Report ---
Nuclear medicine HIDA scan HISTORY: Pain, assess for possible cholecystitis COMPARISON: Abdominal ultrasound on 07/23/[address] abdomen and pelvis on 07/22/2017 Technique/procedure: 5.7 mCi of technetium labeled Choletec was administered intravenously and multiple scintigraphic images were obtained for up to 2 hours FINDINGS: There is no evidence of hepatic excretion after 2 hours. No uptake is seen within the gallbladder biliary system or small bowel. IMPRESSION: No evidence of hepatic excretion after 2 hours. Findings may be due to severe cholestasis and hepatocellular disease or possible high-grade common bile duct obstruction. Clinical correlation and follow-up is recommended. If indicated MRCP or ERCP follow-up may be obtained.
--- NOTE | 2017-07-24 08:29 | History & Physical ---
ADMIT DATE: 07/24/2017 EMERGENCY VASCULAR CONSULT REFERRING PHYSICIAN: Dr. Ramos. REASON FOR CONSULTATION: Acute renal failure. Thank you for referring this patient to me. HISTORY OF PRESENT ILLNESS: This is a 36-year-old female who came in for right-sided pneumonia and pneumothorax associated with fever for 5 days prior to admission. Chest tube was placed yesterday and today request for hemodialysis placement of Bal catheter was made by Dr. Ramos. The reason for this is a rising BUN of 59 and creatinine of 5.4, potassium is 3.9. The calcium is little low at 5.8. Bilirubin is markedly elevated to 7.3 with creatine kinase of 2864. Lipase is normal. PHYSICAL EXAMINATION: The patient is intubated and has a right chest tube. Discussed with the family regarding placement of Bal catheter and risk and complications and they understand. JOB# [id number]
--- NOTE | 2017-07-24 08:37 | Diagnostic Imaging Report ---
Bilateral upper extremity arterial Doppler study HISTORY: Cyanosis of both hands COMPARISON: None Technique: Longitudinal and transverse sonographic images of the bilateral upper extremity arteries were obtained with doppler analysis. FINDINGS: Exam is limited due to patient's medical condition as patient was uncooperative. There is biphasic flow the right subclavian artery. There is triphasic flow in the right axillary artery. Biphasic flow the right brachial, radial, and ulnar arteries is noted. There is suggestion of mild generalized atherosclerotic vascular disease. Right ankle brachial bases were not able to be obtained due to patient's IV line and splint. Flow is seen within the left subclavian artery. Velocity analysis in this region was difficult due to patient's medical condition.. There is biphasic flow within the left axillary artery. There is triphasic flow the left brachial artery. There is biphasic flow in the left radial and left ulnar arteries. No evidence of occlusion. Mild atherosclerotic vascular disease suspected. Left velocity ratio 1.1 IMPRESSION: Limited exam due to patient's medical condition. There was limited assessment of the left subclavian artery. Additional generalized mild atrophy chronic vascular disease was noted. Please correlate with clinical findings.
--- NOTE | 2017-07-24 08:42 | Operative Report ---
DATE OF SURGERY: 07/24/2017 PREOPERATIVE DIAGNOSES: 1. Acute renal failure. 2. Right pneumothorax. 3. Respiratory failure. POSTOPERATIVE DIAGNOSES: 1. Acute renal failure. 2. Right pneumothorax. 3. Respiratory failure. OPERATION DONE: Insertion of Bal catheter, right subclavian vein. DESCRIPTION OF PROCEDURE: The right chest was prepped with ChloraPrep and draped. A 1% lidocaine was used to infiltrate the area identified on ultrasound. An incision was made. A size 18 needle was used to locate the vein. Guide was inserted, the dilator and then the triple lumen catheter. It was anchored to the chest wall with 3-0 silk. Portable chest x-ray will be ordered. JOB# [id number]
[2017-07-24] MEDS: Chlorhexidine Gluconate 0.12% 15mL Mouthwash MM SCH ×2 (08:45→21:00)
[2017-07-24 09:46] LABS: pH 7.57 (7.35-7.45)
[2017-07-24 09:50] LABS: ALB/GLOB RATIO 1.8 (1.0-1.8); ALBUMIN 2.3 gm/dL (3.7-5.3); BILIRUBIN,TOTAL 7.5 mg/dL (0.3-1.0); CARBON DIOXIDE 32.5 mEq/L (21.0-31.0); GFR AFRICAN-AMERICAN 8.5 ml/min (>90); GFR NON AFRICAN-AMERICAN 7.1 ml/min; HEMATOCRIT 25.1 % (41.0-60); MEAN CELL VOLUME 76.5 fl (81-100); MEAN CORPUSCULAR HEMOGLOBIN 27.6 pg (27.0-31.0); MEAN CORPUSCULAR HGB CONC 36.1 pg (28.0-36.0); MEAN PLATELET VOLUME 7.3 fl; POTASSIUM SERUM 3.5 mEq/L (3.5-5.1); RED BLOOD COUNT 3.28 Mil/cmm (3.80-5.10); TOTAL PROTEIN,SERUM 3.6 gm/dL (6.0-8.3)
[2017-07-24 09:55] LABS: PLATELET COUNT 10 Th/cmm (150-400); WHITE BLOOD COUNT 18.9 Th/cmm (4.8-10.8)
[2017-07-24 10:09] LABS: HEMOGLOBIN 9.1 gm/dL (12-16)
[2017-07-24 10:10] LABS: CALCIUM SERUM 5.7 mg/dL (8.6-10.3)
--- NOTE | 2017-07-24 10:25 | General Progress Note ---
Subjective - Review of Systems Service Date: 07/24/17 Subjective: awake , follows commands intubated Objective - Results Result Diagrams: 07/24/17 09:24 07/24/17 09:24 Recent Labs: Laboratory Last Values WBC 18.9 Th/cmm (4.8-10.8) H D 07/24/17 09:24 RBC 3.28 Mil/cmm (3.80-5.10) L 07/24/17 09:24 Hgb 9.1 gm/dL (12-16) L 07/24/17 09:24 Hct 25.1 % (41.0-60) L D 07/24/17 09:24 MCV 76.5 fl (81-100) L 07/24/17 09:24 MCH 27.6 pg (27.0-31.0) 07/24/17 09:24 MCHC Differential 36.1 pg (28.0-36.0) H 07/24/17 09:24 RDW 17.0 % (11.5-20.0) 07/24/17 09:24 Plt Count 10 Th/cmm (150-400) L* D 07/24/17 09:24 MPV 7.3 fl 07/24/17 09:24 Band Neutrophils % 32 % (0-10) H 07/23/17 21:47 Neutrophils (Manual) 59 % (40-80) 07/23/17 21:47 Lymphocytes 9 % (20-50) L 07/23/17 21:47 Monocytes 10 % (2-10) 07/23/17 14:40 Eosinophils 0 % (0-5) 07/23/17 14:40 Basophils 0 % (0-3) 07/23/17 14:40 Hypochromia 1+ 07/23/17 21:47 Platelet Estimate DECREASED PLATELETS (NORMAL) 07/23/17 21:47 Platelet Morphology NORMAL (NORMAL) 07/23/17 14:40 Polychromasia 1+ 07/23/17 21:47 Anisocytosis 1+ 07/22/17 10:55 Microcytosis 3+ 07/23/17 14:40 Tear Drop Cells 2+ 07/23/17 21:47 Stomatocytes 1+ 07/23/17 21:47 RBC Morph Micro Appear ABNORMAL (NORMAL) 07/23/17 14:40 ESR 20 mm/hr (0-30) 07/23/17 Unknown Plt Count 98 Th/cmm (150-750) L 07/23/17 03:48 PT 11.2 SECONDS (9.5-11.5) 07/23/17 03:48 INR 1.08 (0.5-1.4) 07/23/17 03:48 PTT (Actin FS) 42.3 SECONDS (26.0-38.0) H 07/23/17 03:48 Fibrinogen 206.0 mg/dL (200.0-400.0) 07/23/17 03:48 D-Dimer 2950 ng/mL (100-400) H 07/23/17 03:48 Specimen Source Arterial 07/24/17 09:40 Sample Site SOHAN 07/24/17 09:40 pH 7.57 (7.35-7.45) H* 07/24/17 09:40 pCO2 21.0 mmHg (35.0-45.0) L* 07/24/17 09:40 pO2 139.0 mmHg (80.0-100.0) H 07/24/17 09:40 HCO3 24.1 mEq/L (20.0-26.0) 07/24/17 09:40 Base Excess -1.1 mEq/L (-3.0-3.0) 07/24/17 09:40 O2 Saturation 99.0 % (92.0-100.0) 07/24/17 09:40 Roland Test NA 07/24/17 09:40 Vent Rate 18 07/24/17 09:40 Inspired O2 40 07/24/17 09:40 Tidal Volume 500 07/24/17 09:40 PEEP 0 07/24/17 09:40 Pressure (ins/psv/peep) NA 07/24/17 09:40 Critical Value E.QUEEN 07/24/17 09:40 Sodium 133 mEq/L (136-145) L 07/24/17 09:24 Potassium 3.5 mEq/L (3.5-5.1) 07/24/17 09:24 Chloride 81 mEq/L (98-107) L 07/24/17 09:24 Carbon Dioxide 32.5 mEq/L (21.0-31.0) H 07/24/17 09:24 Anion Gap 23.0 (7.0-16.0) H 07/24/17 09:24 BUN 78 mg/dL (7-25) H 07/24/17 09:24 Creatinine 7.0 mg/dL (0.6-1.2) H* 07/24/17 09:24 Est GFR ( Amer) 8.5 ml/min (>90) 07/24/17 09:24 Est GFR (Non-Af Amer) 7.1 ml/min 07/24/17 09:24 BUN/Creatinine Ratio 11.1 07/24/17 09:24 Glucose 110 mg/dL (70-105) H 07/24/17 09:24 Whole Bld Lactic Acid 6.65 mmol/L (0.60-1.99) H* 07/24/17 09:24 Uric Acid 7.7 mg/dL (2.3-6.6) H 07/23/17 Unknown Calcium 5.7 mg/dL (8.6-10.3) L* 07/24/17 09:24 Phosphorus 6.8 mg/dL (2.5-5.0) H 07/23/17 Unknown Magnesium 1.5 mg/dL (1.9-2.7) L 07/23/17 Unknown Iron 39 ug/dL (27-159) 07/22/17 10:55 TIBC 376 ug/dL (250-450) 07/22/17 10:55 Iron Saturation 10 % (15-55) L 07/22/17 10:55 Unsaturated IBC 337 ug/dL (131-425) 07/22/17 10:55 Total Bilirubin 7.5 mg/dL (0.3-1.0) H 07/24/17 09:24 Direct Bilirubin 4.34 mg/dL (0.0-0.2) H 07/23/17 Unknown AST 610 U/L (13-39) H 07/24/17 09:24 ALT 170 U/L (7-52) H 07/24/17 09:24 Alkaline Phosphatase 105 U/L (34-104) H 07/24/17 09:24 Creatine Kinase 2864 U/L (30-223) H 07/23/17 Unknown CK-MB (CK-2) 95.3 ng/mL (0.6-6.3) H 07/23/17 Unknown Troponin I 0.07 ng/mL (0.01-0.05) H* 07/22/17 10:55 C-Reactive Protein 43.4 mg/dL (0.0-0.9) H 07/23/17 03:48 B-Natriuretic Peptide 511.0 pg/mL (5.0-100.0) H 07/22/17 10:55 Total Protein 3.6 gm/dL (6.0-8.3) L 07/24/17 09:24 Albumin 2.3 gm/dL (3.7-5.3) L 07/24/17 09:24 Globulin 1.3 gm/dL 07/24/17 09:24 Albumin/Globulin Ratio 1.8 (1.0-1.8) 07/24/17 09:24 Triglycerides 536 mg/dL (<150) H 07/22/17 10:55 Cholesterol 129 mg/dL (<200) 07/22/17 10:55 LDL Cholesterol Direct 23 mg/dL (75-193) L 07/22/17 10:55 HDL Cholesterol 15 mg/dL (23-92) L 07/22/17 10:55 Amylase 276 U/L (29-103) H 07/22/17 19:04 Lipase 19 U/L (11-82) 07/22/17 19:04 TSH 0.34 uIU/ml (0.34-5.60) 07/23/17 21:47 Serum , Qual NEGATIVE (NEGATIVE) 07/22/17 10:55 Urine Source [place] 07/23/17 03:48 Urine Color ORANGE 07/23/17 03:48 Urine Clarity HAZY (CLEAR) 07/23/17 03:48 Urine pH 7.0 (4.6 - 8.0) 07/23/17 03:48 Ur Specific [place] 1.010 (1.005-1.030) 07/23/17 03:48 Urine Protein 100 mg/dL (NEGATIVE) H 07/23/17 03:48 Urine Glucose (UA) NEGATIVE mg/dL (NEGATIVE) 07/23/17 03:48 Urine Ketones NEGATIVE mg/dL (NEGATIVE) 07/23/17 03:48 Urine Blood LARGE (NEGATIVE) H 07/23/17 03:48 Urine Nitrate NEGATIVE (NEGATIVE) 07/23/17 03:48 Urine Bilirubin NEGATIVE (NEGATIVE) 07/23/17 03:48 Urine Urobilinogen 0.2 E.U./dL (0.2 - 1.0) 07/23/17 03:48 Ur Leukocyte Esterase NEGATIVE (NEGATIVE) 07/23/17 03:48 Urine RBC 50-100 /hpf (0-5) H 07/23/17 03:48 Urine WBC 2-5 /hpf (0-5) 07/23/17 03:48 Ur Epithelial Cells MODERATE /lpf (FEW) 07/23/17 03:48 Urine Bacteria FEW /hpf (NONE SEEN) 07/23/17 03:48 Stool Occult Blood NEGATIVE (NEGATIVE) 07/23/17 03:15 Stool Leukocyte NO WBC SEEN 07/23/17 03:15 Random Vancomycin 13.0 ug/mL (5.0-40.0) 07/24/17 09:24 Salicylates < 25.0 mg/L (30.0-100.0) L 07/22/17 10:55 Urine Opiates Screen NEGATIVE (NEGATIVE) 07/23/17 03:45 Urine Methadone Screen NEGATIVE (NEGATIVE) 07/23/17 03:45 Acetaminophen < 10.0 ug/mL (10.0-30.0) L 07/22/17 10:55 Ur Barbiturates Screen NEGATIVE (NEGATIVE) 07/23/17 03:45 Ur Tricyclics Screen NEGATIVE (NEGATIVE) 07/23/17 03:45 Ur Phencyclidine Scrn NEGATIVE (NEGATIVE) 07/23/17 03:45 Amphetamines Screen NEGATIVE (NEGATIVE) 07/23/17 03:45 U Methamphetamines Scrn NEGATIVE (NEGATIVE) 07/23/17 03:45 U Benzodiazepines Scrn NEGATIVE (NEGATIVE) 07/23/17 03:45 U Cocaine Metab Screen NEGATIVE (NEGATIVE) 07/23/17 03:45 U Cannabinoids Screen NEGATIVE (NEGATIVE) 07/23/17 03:45 HIV 1&2 Antibody Screen NEGATIVE (NEG) 07/23/17 03:48 Influenza A (Rapid) NEG FOR INF A 07/22/17 19:20 Influenza B (Rapid) NEG FOR INF B 07/22/17 19:20 Blood Type O POSITIVE 07/23/17 14:40 Antibody Screen NEGATIVE 07/23/17 14:40 Crossmatch See Detail 07/23/17 14:40 - Physical Exam Vitals and I&O: Vital Signs Temp 99.7 F 07/24/17 00:00 Pulse 115 07/24/17 08:24 Resp 18 07/24/17 04:00 BP 124/67 07/24/17 04:00 Pulse Ox 100 07/24/17 05:18 Intake & Output 07/23/17 07/24/17 07/24/17 18:59 06:59 18:59 Intake Total 1553.447 658.880 209.453 Output Total 1100 Balance 453.447 658.880 209.453 Weight (lbs) 60.781 kg Intake: Intake, IV Amount 1353.447 658.880 209.453 Calcium Gluconate 1 gm In 110 110 110 Sodium Chloride 0.9% 100 ml @ 100 mls/hr IV Q8H [facility] Rx#:[id number] Meropenem 500 mg In 50 50 50 Sodium Chloride 0.9% 50 ml @ 100 mls/hr IV Q12H [facility] Rx#:[id number] Propofol 1,000 mg In 100 43.447 50.547 49.453 ml @ 5 MCG/KG/MIN 1.823 mls/hr IV TITR [facility] Rx#: [id number] Sodium Bicarbonate 8.4% 448.333 150 meq In Dextrose 5% 1, 000 ml @ 100 mls/hr IV . [id number] [facility] Rx#:[id number] Sodium Bicarbonate 8.4% 1150 150 meq In Dextrose 5% 1, 000 ml @ 175 mls/hr IV . Q6H35M [facility] Rx#:[id number] Oral 0 Tube Feeding 0 Albumin 200 Output: Chest Tube Drainage 500 Right Mid-Axillary Chest 500 Urine 600 Active Medications: Current Medications Chlorhexidine Gluconate (Peridex) 15 ml MM 799,1999 [facility] Stop: 09/22/17 07:59 Hydrocortisone Sodium Succinate (Solu-Cortef) 50 mg IVP Q6HR [facility] Stop: 09/21/17 17:59 Last Admin: 07/24/17 06:02 Dose: 50 mg Calcium Gluconate 1 gm/ Sodium (Chloride) 110 mls @ 100 mls/hr IV Q8H [facility] Stop: 07/24/17 21:29 Last Infusion: 07/24/17 08:44 Dose: Infused Propofol (Diprivan) 1,000 mg in 100 mls @ 1.823 mls/hr IV TITR [facility]; 5 MCG/KG/ MIN PRN Reason: Protocol Stop: 09/20/17 21:49 Last Admin: 07/24/17 10:07 Dose: 17 mcg/kg/min, 6.2 mls/hr Levofloxacin (Levaquin Pb) 250 mg in 50 mls @ 50 mls/hr IV Q48HR [facility] Stop: 09/22/17 04:59 Last Admin: 07/24/17 05:51 Dose: 50 mls/hr Meropenem 500 mg/ Sodium (Chloride) 50 mls @ 100 mls/hr IV Q12H [facility] Stop: 09/21/17 03:26 Last Infusion: 07/24/17 08:45 Dose: Infused Sodium Chloride (Nacl 0.9%) 250 mls @ 10 mls/hr IV ONCE ONE Stop: 07/24/17 14:59 Last Admin: 07/23/17 23:42 Dose: Not Given Norepinephrine Bitartrate 4 mg (/ Dextrose) 254 mls @ 30.48 mls/hr IV TITR PRN ; Protocol; 8 MCG/MIN PRN Reason: BP MAINTENANCE (PER PROTOCOL) Stop: 09/21/17 14:59 Sodium Bicarbonate 150 meq/ (Dextrose) 1,150 mls @ 100 mls/hr IV .[id number] [facility] Stop: 09/21/17 20:48 Last Admin: 07/24/17 01:43 Dose: 100 mls/hr Vancomycin HCl 1 gm/ Dextrose 250 mls @ 165 mls/hr IV ONCE ONE Stop: 07/24/17 14:30 Miscellaneous (Vancomycin Iv Per Pharmacy) 1 ea PRN [facility] Stop: 09/21/17 09:44 Miscellaneous (Probiotic Screen) 1 ea PRN PRN PRN Reason: PROTOCOL Stop: 09/21/17 17:51 Oseltamivir Phosphate (Tamiflu) 30 mg PO DAILY [facility] Stop: 09/21/17 14:14 General: Alert, No acute distress HEENT: Atraumatic, Other (intubated, NGT feeding) Neck: Other (right neck central line) Cardiovascular: no Other (tachycardia) Lungs: Other (rales) Abdomen: Soft, no Tender, no Distended Extremities: Cyanosis, Other (right arm picc) Skin: Other (echymosis bilateral thigh area) Assessment/Plan - Problem List Patient Problems: All Active Problems DYSPNEA WITH BODY ACHES AND NUMBNESS (Acute) - Assessment Assessment: * Septic shock * Renal failure on dialysis * liver failure * Respiratory failure * Pneumothorax * Pneumonia * DIC CHECK CORTISOLE level Continue STEROIDS DIC panel pending this am plt. transfusion ordered last night, still not transfused yet. porter Ramos Nutritional Asmnt/Malnutr-PDOC - Dietary Evaluation Malnutrition Findings (Please click <Entered> for more info): Nutritional Asmnt/Malnutrition Start: 07/23/17 13: 56 Text: Status: Complete Freq: Document 07/23/17 13:57 LCHENG (Rec: 07/23/17 14:14 LCHENG [email or web address]) Nutritional Asmnt/Malnutrition Patient General Information Nutritional Screening High Risk Diagnosis acute respiratory failure, PNA , sepsis Pertinent Medical Hx/Surgical Hx HTN, Subjective Information Pt seen in ICU busy with doctor and nurse. Per notes, pt was intubated, NPO status. Per MD notes 07/23, november initiate HD waiting final desicion. Current Diet Order/ Nutrition Support NPO Pertinent Medications Calcium gluconate, Levaquin, sodium bicarbonate, nacl 0.9%, propofol Pertinent Labs / Na 132, K 3.9, Cl 88, BUN 59, Cr 5.4, Glucose 90, Calcium 5.8, Phos 6.8, Mg 1.5, AST 154, ALT 51, Alb 2.1 Nutritional Hx/Data Height 1.52 m Height (Calculated Centimeters) 152.4 Current Weight (lbs) 60.781 kg Weight (Calculated Kilograms) 60.8 Weight (Calculated Grams) 30038.4 [place] Body Weight 100 % [place] Body Weight 134 Body Mass Index (BMI) 26.2 Weight Status Overweight GI Symptoms GI Symptoms None Current %PO Negligible < 25% Estimated Nutritional Goals BEE in Kcals: Using Current wt Calories/Kcals/Kg 30-35 Kcals Calculated 2350-2353 Protein: Using Current wt Protein g/k.2-1.4 monior renal labs Protein Calculated 73-85 Fluid: ml 6352-7199 or per MD d/t acute renal failure Nutritional Problem 1. Problem Problem altered nutrition related lab values Etiology imbalanced electrolytes, acute renal failure Signs/Symptoms: Na 132, K 3.9, Cl 88, BUN 59, Cr 5.4, Calcium 5.8, Phos 6.8, Mg 1.5 Intervention/Recommendation Comments 1. Monitor NPO status 2. If enteral feeding needed, recomend to start Novasource Renal 20ml/hr continuous, increase to goal rate of 40ml/ hr continuous as tolerated. This will provide 1920kcal, 87g protein and 699ml water, meeting 100% of calorie needs and 102% of protein needs, 3. F/U as high risk in 2 days, 1/4 Expected Outcomes/Goals Expected Outcomes/Goals 1. Pt to meet at least 75% of nutritional needs in 2-3 days 2. Wt stability, skin to remain intact, labs to improve .
[2017-07-24 11:03] LABS: INR 1.18 (0.5-1.4); PROTHROMBIN TIME (TEST) 12.4 SECONDS (9.5-11.5)
[2017-07-24] MEDS: D5-0.9%NS 1,000 ML IV SCH (11:25)
[2017-07-24 11:32] LABS: DDIMER QUANT 4060 ng/mL (100-400)
--- NOTE | 2017-07-24 12:20 | Diagnostic Imaging Report ---
CHEST X-RAY: AP view INDICATION: Shortness of breath COMPARISON: 07/23/2017 FINDINGS: Endotracheal tube is seen with tip 4.1 cm above the Aniya. Right IJ line is stable. Right subclavian central line is seen with tip in the cavoatrial junction. Right chest tube is stable. Diffuse pulmonary infiltrates are seen in bilateral effusions. Lucency seen is along the right lung base. Heart size is normal. NG tube is seen with tip in the proximal stomach. IMPRESSION: Diffuse pulmonary infiltrates. Lucency of the right lung base and right retrocardiac region are indeterminate. Small pneumothoraces in these regions cannot be excluded. CT chest with further clarify. New right subclavian central line with tip in SVC. Additional support devices as above.
--- NOTE | 2017-07-24 12:56 | Progress Notes ---
DATE: 07/24/2017 CRITICAL CARE NOTE LOCATION: [facility] ICU bed 7. The patient is conscious, alert, on a respirator. The patient is anuric to oliguric through Cardoza catheter. The patient has undergone placement of the Bal catheter on the right subclavian area. The patient's boyfriend is at bedside this time. For last 24 hours the patient has been oliguric to anuric. The patient's heart rate has improved to about 110 to 115. Blood pressure is staying within the range of 124/67 to 96/50. Respiration rate is varying between 18 to 18. The patient's yesterday's intake is noted as 2212 which does not make sense because the patient is receiving almost 200 mL per hour. Urine output has been 600 mL. Heart, regular, tachycardia. Lungs, rhonchi both side. Abdomen, soft. Extremity, edema. SIGNIFICANT LABS: ABG; pH 7.57, pCO2 21, pO2 139, bicarb 24. Chemistry this morning is not available yet. WBC 18.9, hemoglobin 9.1. I have been just told that BUN is 78, creatinine is 7, bilirubin is 7.5. The patient is receiving packed RBC this time. ASSESSMENT: 1. Acute tubular necrosis. 2. Respiratory failure. 3. Acidosis, improving. 4. Multi organ failure. 5. Pneumonia. 6. Coagulopathy. 7. Elevated LFTs. 8. Septic shock. PLAN: Considering oliguria, fluid overload and worsening of renal failure, we will attempt dialysis today without any heparin. We will give albumin on dialysis if necessary for hypotension. We will discontinue sodium bicarb drip since acidosis has improved. We will increase calcium in a dialysis bath, the patient may require repeat dialysis again tomorrow. This has been discussed with the patient at length. She is conscious, alert. She understood, agreed. The patient's boyfriend has also agreed. Case has been discussed with ICU staff multiple time and Dr. Haddad also. JOB# [id number]
--- NOTE | 2017-07-24 13:06 | GI Progress Note ---
Subjective - Review of Systems Subjective: INTUBATED BUT AWAKE DENIES ABD PAIN Objective - Results Result Diagrams: 07/24/17 09:24 07/24/17 09:24 Recent Labs: Laboratory Last Values WBC 18.9 Th/cmm (4.8-10.8) H D 07/24/17 09:24 RBC 3.28 Mil/cmm (3.80-5.10) L 07/24/17 09:24 Hgb 9.1 gm/dL (12-16) L 07/24/17 09:24 Hct 25.1 % (41.0-60) L D 07/24/17 09:24 MCV 76.5 fl (81-100) L 07/24/17 09:24 MCH 27.6 pg (27.0-31.0) 07/24/17 09:24 MCHC Differential 36.1 pg (28.0-36.0) H 07/24/17 09:24 RDW 17.0 % (11.5-20.0) 07/24/17 09:24 Plt Count 10 Th/cmm (150-400) L* D 07/24/17 09:24 MPV 7.3 fl 07/24/17 09:24 Band Neutrophils % 32 % (0-10) H 07/23/17 21:47 Neutrophils (Manual) 59 % (40-80) 07/23/17 21:47 Lymphocytes 9 % (20-50) L 07/23/17 21:47 Monocytes 10 % (2-10) 07/23/17 14:40 Eosinophils 0 % (0-5) 07/23/17 14:40 Basophils 0 % (0-3) 07/23/17 14:40 Hypochromia 1+ 07/23/17 21:47 Platelet Estimate DECREASED PLATELETS (NORMAL) 07/23/17 21:47 Platelet Morphology NORMAL (NORMAL) 07/23/17 14:40 Polychromasia 1+ 07/23/17 21:47 Anisocytosis 1+ 07/22/17 10:55 Microcytosis 3+ 07/23/17 14:40 Tear Drop Cells 2+ 07/23/17 21:47 Stomatocytes 1+ 07/23/17 21:47 RBC Morph Micro Appear ABNORMAL (NORMAL) 07/23/17 14:40 ESR 20 mm/hr (0-30) 07/23/17 Unknown Plt Count 10 Th/cmm (150-750) L* 07/24/17 09:24 PT 12.4 SECONDS (9.5-11.5) H 07/24/17 09:24 INR 1.18 (0.5-1.4) 07/24/17 09:24 PTT (Actin FS) > 150.0 SECONDS (26.0-38.0) H* 07/24/17 09:24 Fibrinogen 193.0 mg/dL (200.0-400.0) L 07/24/17 09:24 D-Dimer 4060 ng/mL (100-400) H 07/24/17 09:24 Specimen Source Arterial 07/24/17 09:40 Sample Site SOHAN 07/24/17 09:40 pH 7.57 (7.35-7.45) H* 07/24/17 09:40 pCO2 21.0 mmHg (35.0-45.0) L* 07/24/17 09:40 pO2 139.0 mmHg (80.0-100.0) H 07/24/17 09:40 HCO3 24.1 mEq/L (20.0-26.0) 07/24/17 09:40 Base Excess -1.1 mEq/L (-3.0-3.0) 07/24/17 09:40 O2 Saturation 99.0 % (92.0-100.0) 07/24/17 09:40 Roland Test NA 07/24/17 09:40 Vent Rate 18 07/24/17 09:40 Inspired O2 40 07/24/17 09:40 Tidal Volume 500 07/24/17 09:40 PEEP 0 07/24/17 09:40 Pressure (ins/psv/peep) NA 07/24/17 09:40 Critical Value E.QUEEN 07/24/17 09:40 Sodium 133 mEq/L (136-145) L 07/24/17 09:24 Potassium 3.5 mEq/L (3.5-5.1) 07/24/17 09:24 Chloride 81 mEq/L (98-107) L 07/24/17 09:24 Carbon Dioxide 32.5 mEq/L (21.0-31.0) H 07/24/17 09:24 Anion Gap 23.0 (7.0-16.0) H 07/24/17 09:24 BUN 78 mg/dL (7-25) H 07/24/17 09:24 Creatinine 7.0 mg/dL (0.6-1.2) H* 07/24/17 09:24 Est GFR ( Amer) 8.5 ml/min (>90) 07/24/17 09:24 Est GFR (Non-Af Amer) 7.1 ml/min 07/24/17 09:24 BUN/Creatinine Ratio 11.1 07/24/17 09:24 Glucose 110 mg/dL (70-105) H 07/24/17 09:24 Whole Bld Lactic Acid 6.09 mmol/L (0.60-1.99) H* 07/24/17 11:30 Uric Acid 7.7 mg/dL (2.3-6.6) H 07/23/17 Unknown Calcium 5.7 mg/dL (8.6-10.3) L* 07/24/17 09:24 Phosphorus 6.8 mg/dL (2.5-5.0) H 07/23/17 Unknown Magnesium 1.8 mg/dL (1.9-2.7) L 07/24/17 11:30 Iron 39 ug/dL (27-159) 07/22/17 10:55 TIBC 376 ug/dL (250-450) 07/22/17 10:55 Iron Saturation 10 % (15-55) L 07/22/17 10:55 Unsaturated IBC 337 ug/dL (131-425) 07/22/17 10:55 Ferritin 3877 ng/mL (15-150) H 07/22/17 10:55 Total Bilirubin 7.5 mg/dL (0.3-1.0) H 07/24/17 09:24 Direct Bilirubin 4.34 mg/dL (0.0-0.2) H 07/23/17 Unknown AST 610 U/L (13-39) H 07/24/17 09:24 ALT 170 U/L (7-52) H 07/24/17 09:24 Alkaline Phosphatase 105 U/L (34-104) H 07/24/17 09:24 Creatine Kinase 2864 U/L (30-223) H 07/23/17 Unknown CK-MB (CK-2) 95.3 ng/mL (0.6-6.3) H 07/23/17 Unknown Troponin I 0.07 ng/mL (0.01-0.05) H* 07/22/17 10:55 C-Reactive Protein 43.4 mg/dL (0.0-0.9) H 07/23/17 03:48 B-Natriuretic Peptide 511.0 pg/mL (5.0-100.0) H 07/22/17 10:55 Total Protein 3.6 gm/dL (6.0-8.3) L 07/24/17 09:24 Albumin 2.3 gm/dL (3.7-5.3) L 07/24/17 09:24 Globulin 1.3 gm/dL 07/24/17 09:24 Albumin/Globulin Ratio 1.8 (1.0-1.8) 07/24/17 09:24 Triglycerides 536 mg/dL (<150) H 07/22/17 10:55 Cholesterol 129 mg/dL (<200) 07/22/17 10:55 LDL Cholesterol Direct 23 mg/dL (75-193) L 07/22/17 10:55 HDL Cholesterol 15 mg/dL (23-92) L 07/22/17 10:55 Amylase 276 U/L (29-103) H 07/22/17 19:04 Lipase 19 U/L (11-82) 07/22/17 19:04 TSH 0.34 uIU/ml (0.34-5.60) 07/23/17 21:47 Serum , Qual NEGATIVE (NEGATIVE) 07/22/17 10:55 Urine Source [place] 07/23/17 03:48 Urine Color ORANGE 07/23/17 03:48 Urine Clarity HAZY (CLEAR) 07/23/17 03:48 Urine pH 7.0 (4.6 - 8.0) 07/23/17 03:48 Ur Specific [place] 1.010 (1.005-1.030) 07/23/17 03:48 Urine Protein 100 mg/dL (NEGATIVE) H 07/23/17 03:48 Urine Glucose (UA) NEGATIVE mg/dL (NEGATIVE) 07/23/17 03:48 Urine Ketones NEGATIVE mg/dL (NEGATIVE) 07/23/17 03:48 Urine Blood LARGE (NEGATIVE) H 07/23/17 03:48 Urine Nitrate NEGATIVE (NEGATIVE) 07/23/17 03:48 Urine Bilirubin NEGATIVE (NEGATIVE) 07/23/17 03:48 Urine Urobilinogen 0.2 E.U./dL (0.2 - 1.0) 07/23/17 03:48 Ur Leukocyte Esterase NEGATIVE (NEGATIVE) 07/23/17 03:48 Urine RBC 50-100 /hpf (0-5) H 07/23/17 03:48 Urine WBC 2-5 /hpf (0-5) 07/23/17 03:48 Ur Epithelial Cells MODERATE /lpf (FEW) 07/23/17 03:48 Urine Bacteria FEW /hpf (NONE SEEN) 07/23/17 03:48 Stool Occult Blood NEGATIVE (NEGATIVE) 07/23/17 03:15 Stool Leukocyte NO WBC SEEN 07/23/17 03:15 Random Vancomycin 13.0 ug/mL (5.0-40.0) 07/24/17 09:24 Salicylates < 25.0 mg/L (30.0-100.0) L 07/22/17 10:55 Urine Opiates Screen NEGATIVE (NEGATIVE) 07/23/17 03:45 Urine Methadone Screen NEGATIVE (NEGATIVE) 07/23/17 03:45 Acetaminophen < 10.0 ug/mL (10.0-30.0) L 07/22/17 10:55 Ur Barbiturates Screen NEGATIVE (NEGATIVE) 07/23/17 03:45 Ur Tricyclics Screen NEGATIVE (NEGATIVE) 07/23/17 03:45 Ur Phencyclidine Scrn NEGATIVE (NEGATIVE) 07/23/17 03:45 Amphetamines Screen NEGATIVE (NEGATIVE) 07/23/17 03:45 U Methamphetamines Scrn NEGATIVE (NEGATIVE) 07/23/17 03:45 U Benzodiazepines Scrn NEGATIVE (NEGATIVE) 07/23/17 03:45 U Cocaine Metab Screen NEGATIVE (NEGATIVE) 07/23/17 03:45 U Cannabinoids Screen NEGATIVE (NEGATIVE) 07/23/17 03:45 HIV 1&2 Antibody Screen NEGATIVE (NEG) 07/23/17 03:48 Influenza A (Rapid) NEG FOR INF A 07/22/17 19:20 Influenza B (Rapid) NEG FOR INF B 07/22/17 19:20 Blood Type O POSITIVE 07/23/17 14:40 Antibody Screen NEGATIVE 07/23/17 14:40 Crossmatch See Detail 07/23/17 14:40 - Physical Exam Vitals and I&O: Vital Signs Temp 99.7 F 07/24/17 00:00 Pulse 115 07/24/17 08:24 Resp 18 07/24/17 04:00 BP 124/67 07/24/17 04:00 Pulse Ox 100 07/24/17 05:18 Intake & Output 07/23/17 07/24/17 07/24/17 18:59 06:59 18:59 Intake Total 1553.447 658.880 209.453 Output Total 1100 Balance 453.447 658.880 209.453 Weight (lbs) 60.781 kg Intake: Intake, IV Amount 1353.447 658.880 209.453 Calcium Gluconate 1 gm In 110 110 110 Sodium Chloride 0.9% 100 ml @ 100 mls/hr IV Q8H [facility] Rx#:[id number] Meropenem 500 mg In 50 50 50 Sodium Chloride 0.9% 50 ml @ 100 mls/hr IV Q12H [facility] Rx#:[id number] Propofol 1,000 mg In 100 43.447 50.547 49.453 ml @ 5 MCG/KG/MIN 1.823 mls/hr IV TITR [facility] Rx#: [id number] Sodium Bicarbonate 8.4% 448.333 150 meq In Dextrose 5% 1, 000 ml @ 100 mls/hr IV . [id number] [facility] Rx#:[id number] Sodium Bicarbonate 8.4% 1150 150 meq In Dextrose 5% 1, 000 ml @ 175 mls/hr IV . Q6H35M [facility] Rx#:[id number] Oral 0 Tube Feeding 0 Albumin 200 Output: Chest Tube Drainage 500 Right Mid-Axillary Chest 500 Urine 600 Active Medications: Current Medications Chlorhexidine Gluconate (Peridex) 15 ml MM 0800,1999 [facility] Stop: 09/22/17 07:59 Last Admin: 07/24/17 08:45 Dose: 15 ml Hydrocortisone Sodium Succinate (Solu-Cortef) 50 mg IVP Q6HR [facility] Stop: 09/21/17 17:59 Last Admin: 07/24/17 06:02 Dose: 50 mg Propofol (Diprivan) 1,000 mg in 100 mls @ 1.823 mls/hr IV TITR [facility]; 5 MCG/KG/ MIN PRN Reason: Protocol Stop: 09/20/17 21:49 Last Admin: 07/24/17 10:07 Dose: 17 mcg/kg/min, 6.2 mls/hr Levofloxacin (Levaquin Pb) 250 mg in 50 mls @ 50 mls/hr IV Q48HR [facility] Stop: 09/22/17 04:59 Last Admin: 07/24/17 05:51 Dose: 50 mls/hr Meropenem 500 mg/ Sodium (Chloride) 50 mls @ 100 mls/hr IV Q12H [facility] Stop: 09/21/17 03:26 Last Infusion: 07/24/17 08:45 Dose: Infused Sodium Chloride (Nacl 0.9%) 250 mls @ 10 mls/hr IV ONCE ONE Stop: 07/24/17 14:59 Last Admin: 07/23/17 23:42 Dose: Not Given Norepinephrine Bitartrate 4 mg (/ Dextrose) 254 mls @ 30.48 mls/hr IV TITR PRN ; Protocol; 8 MCG/MIN PRN Reason: BP MAINTENANCE (PER PROTOCOL) Stop: 09/21/17 14:59 Vancomycin HCl 1 gm/ Dextrose 250 mls @ 165 mls/hr IV ONCE ONE Stop: 07/24/17 14:30 Dextrose/Sodium Chloride (D5-0.9%Ns) 1,000 mls @ 75 mls/hr IV .[id number] [facility] Stop: 09/22/17 10:14 Last Admin: 07/24/17 11:25 Dose: 75 mls/hr Ferric Sodium Gluconate Complex 125 mg/ Sodium Chloride 110 mls @ 100 mls/hr IV Q24HR [facility] Stop: 07/31/17 13:05 Miscellaneous (Vancomycin Iv Per Pharmacy) 1 ea [facility] PRN [facility] Stop: 09/21/17 09:44 Miscellaneous (Probiotic Screen) 1 ea PRN PRN PRN Reason: PROTOCOL Stop: 09/21/17 17:51 Oseltamivir Phosphate (Tamiflu) 30 mg PO DAILY [facility] Stop: 09/21/17 14:14 General: Alert, No acute distress HEENT: Atraumatic, Other (intubated, NGT feeding) Neck: Other (right neck central line) Cardiovascular: no Other (tachycardia) Lungs: Other (rales) Abdomen: Soft, no Tender, no Distended Extremities: Cyanosis, Other (right arm picc) Skin: Other (echymosis bilateral thigh area) Assessment/Plan - Problem List Patient Problems: All Active Problems DYSPNEA WITH BODY ACHES AND NUMBNESS (Acute) - Assessment Assessment: 36 YO FEMALE WITH SEPTIC SHOCK DUE TO PNA LFTS ARE ELEVATED CT SHOWED NO ABNORMALITIES WITH REGARD TO THE LIVER OR GB ABNORMAL HIDA 1.WILL NEED MRCP WHEN STABLE 2.FOLLOW LFTS 3.CHECK LIVER LABS FOR CHRONIC LIVER DZ 4.CONT SUPP CARE 5.PT SHOULD HAVE RHEUM EVAL
[2017-07-24] MEDS: Sodium Ferric Gluconate 125 MG in Sodium Chloride 0.9% 100 ML IV SCH (14:08)
--- NOTE | 2017-07-24 15:20 | Operative Report ---
DATE OF SURGERY: 07/24/2017 OPERATION DONE: Emergency placement of right chest tube. DESCRIPTION OF PROCEDURE: Informed consent discussed with the family at bedside prior to the procedure. The right chest was prepped with ChloraPrep and draped in appropriate manner. A 1% lidocaine was infiltrated at 7 intercostal space at the anterior axillary line. An incision was made. Hemostat was introduced into the space following which a 24-Romansh trocar catheter was inserted. This anchored to chest wall with 3-0 silk. The tube was connected to underwater seal and suction at 20 cm pressure. JOB# [id number]
--- NOTE | 2017-07-24 15:56 | General Progress Note ---
Subjective - Review of Systems Service Date: 07/24/17 Subjective: Patient seen and examined. Chart reviewed. Patient was awake alert intubated Family was at the bedside No new patient's concern reported per family Objective - Results Result Diagrams: 07/24/17 09:24 07/24/17 09:24 Recent Labs: Laboratory Last Values WBC 18.9 Th/cmm (4.8-10.8) H D 07/24/17 09:24 RBC 3.28 Mil/cmm (3.80-5.10) L 07/24/17 09:24 Hgb 9.1 gm/dL (12-16) L 07/24/17 09:24 Hct 25.1 % (41.0-60) L D 07/24/17 09:24 MCV 76.5 fl (81-100) L 07/24/17 09:24 MCH 27.6 pg (27.0-31.0) 07/24/17 09:24 MCHC Differential 36.1 pg (28.0-36.0) H 07/24/17 09:24 RDW 17.0 % (11.5-20.0) 07/24/17 09:24 Plt Count 10 Th/cmm (150-400) L* D 07/24/17 09:24 MPV 7.3 fl 07/24/17 09:24 Band Neutrophils % 32 % (0-10) H 07/23/17 21:47 Neutrophils (Manual) 59 % (40-80) 07/23/17 21:47 Lymphocytes 9 % (20-50) L 07/23/17 21:47 Monocytes 10 % (2-10) 07/23/17 14:40 Eosinophils 0 % (0-5) 07/23/17 14:40 Basophils 0 % (0-3) 07/23/17 14:40 Hypochromia 1+ 07/23/17 21:47 Platelet Estimate DECREASED PLATELETS (NORMAL) 07/23/17 21:47 Platelet Morphology NORMAL (NORMAL) 07/23/17 14:40 Polychromasia 1+ 07/23/17 21:47 Anisocytosis 1+ 07/22/17 10:55 Microcytosis 3+ 07/23/17 14:40 Tear Drop Cells 2+ 07/23/17 21:47 Stomatocytes 1+ 07/23/17 21:47 RBC Morph Micro Appear ABNORMAL (NORMAL) 07/23/17 14:40 ESR 20 mm/hr (0-30) 07/23/17 Unknown Plt Count 10 Th/cmm (150-750) L* 07/24/17 09:24 PT 12.4 SECONDS (9.5-11.5) H 07/24/17 09:24 INR 1.18 (0.5-1.4) 07/24/17 09:24 PTT (Actin FS) > 150.0 SECONDS (26.0-38.0) H* 07/24/17 09:24 Fibrinogen 193.0 mg/dL (200.0-400.0) L 07/24/17 09:24 D-Dimer 4060 ng/mL (100-400) H 07/24/17 09:24 Specimen Source Arterial 07/24/17 09:40 Sample Site SOHAN 07/24/17 09:40 pH 7.57 (7.35-7.45) H* 07/24/17 09:40 pCO2 21.0 mmHg (35.0-45.0) L* 07/24/17 09:40 pO2 139.0 mmHg (80.0-100.0) H 07/24/17 09:40 HCO3 24.1 mEq/L (20.0-26.0) 07/24/17 09:40 Base Excess -1.1 mEq/L (-3.0-3.0) 07/24/17 09:40 O2 Saturation 99.0 % (92.0-100.0) 07/24/17 09:40 Roland Test NA 07/24/17 09:40 Vent Rate 18 07/24/17 09:40 Inspired O2 40 07/24/17 09:40 Tidal Volume 500 07/24/17 09:40 PEEP 0 07/24/17 09:40 Pressure (ins/psv/peep) NA 07/24/17 09:40 Critical Value EKALEEO 07/24/17 09:40 Sodium 133 mEq/L (136-145) L 07/24/17 09:24 Potassium 3.5 mEq/L (3.5-5.1) 07/24/17 09:24 Chloride 81 mEq/L (98-107) L 07/24/17 09:24 Carbon Dioxide 32.5 mEq/L (21.0-31.0) H 07/24/17 09:24 Anion Gap 23.0 (7.0-16.0) H 07/24/17 09:24 BUN 78 mg/dL (7-25) H 07/24/17 09:24 Creatinine 7.0 mg/dL (0.6-1.2) H* 07/24/17 09:24 Est GFR ( Amer) 8.5 ml/min (>90) 07/24/17 09:24 Est GFR (Non-Af Amer) 7.1 ml/min 07/24/17 09:24 BUN/Creatinine Ratio 11.1 07/24/17 09:24 Glucose 110 mg/dL (70-105) H 07/24/17 09:24 Whole Bld Lactic Acid 6.09 mmol/L (0.60-1.99) H* 07/24/17 11:30 Uric Acid 7.7 mg/dL (2.3-6.6) H 07/23/17 Unknown Calcium 5.7 mg/dL (8.6-10.3) L* 07/24/17 09:24 Phosphorus 4.9 mg/dL (2.5-5.0) 07/24/17 15:00 Magnesium 1.8 mg/dL (1.9-2.7) L 07/24/17 11:30 Iron 39 ug/dL (27-159) 07/22/17 10:55 TIBC 376 ug/dL (250-450) 07/22/17 10:55 Iron Saturation 10 % (15-55) L 07/22/17 10:55 Unsaturated IBC 337 ug/dL (131-425) 07/22/17 10:55 Ferritin 3877 ng/mL (15-150) H 07/22/17 10:55 Total Bilirubin 7.5 mg/dL (0.3-1.0) H 07/24/17 09:24 Direct Bilirubin 4.34 mg/dL (0.0-0.2) H 07/23/17 Unknown AST 610 U/L (13-39) H 07/24/17 09:24 ALT 170 U/L (7-52) H 07/24/17 09:24 Alkaline Phosphatase 105 U/L (34-104) H 07/24/17 09:24 Creatine Kinase 2864 U/L (30-223) H 07/23/17 Unknown CK-MB (CK-2) 95.3 ng/mL (0.6-6.3) H 07/23/17 Unknown Troponin I 0.07 ng/mL (0.01-0.05) H* 07/22/17 10:55 C-Reactive Protein 43.4 mg/dL (0.0-0.9) H 07/23/17 03:48 B-Natriuretic Peptide 511.0 pg/mL (5.0-100.0) H 07/22/17 10:55 Total Protein 3.6 gm/dL (6.0-8.3) L 07/24/17 09:24 Albumin 2.3 gm/dL (3.7-5.3) L 07/24/17 09:24 Globulin 1.3 gm/dL 07/24/17 09:24 Albumin/Globulin Ratio 1.8 (1.0-1.8) 07/24/17 09:24 Triglycerides 536 mg/dL (<150) H 07/22/17 10:55 Cholesterol 129 mg/dL (<200) 07/22/17 10:55 LDL Cholesterol Direct 23 mg/dL (75-193) L 07/22/17 10:55 HDL Cholesterol 15 mg/dL (23-92) L 07/22/17 10:55 Amylase 276 U/L (29-103) H 07/22/17 19:04 Lipase 19 U/L (11-82) 07/22/17 19:04 TSH 0.34 uIU/ml (0.34-5.60) 07/23/17 21:47 Serum , Qual NEGATIVE (NEGATIVE) 07/22/17 10:55 Urine Source [place] 07/23/17 03:48 Urine Color ORANGE 07/23/17 03:48 Urine Clarity HAZY (CLEAR) 07/23/17 03:48 Urine pH 7.0 (4.6 - 8.0) 07/23/17 03:48 Ur Specific Temple 1.010 (1.005-1.030) 07/23/17 03:48 Urine Protein 100 mg/dL (NEGATIVE) H 07/23/17 03:48 Urine Glucose (UA) NEGATIVE mg/dL (NEGATIVE) 07/23/17 03:48 Urine Ketones NEGATIVE mg/dL (NEGATIVE) 07/23/17 03:48 Urine Blood LARGE (NEGATIVE) H 07/23/17 03:48 Urine Nitrate NEGATIVE (NEGATIVE) 07/23/17 03:48 Urine Bilirubin NEGATIVE (NEGATIVE) 07/23/17 03:48 Urine Urobilinogen 0.2 E.U./dL (0.2 - 1.0) 07/23/17 03:48 Ur Leukocyte Esterase NEGATIVE (NEGATIVE) 07/23/17 03:48 Urine RBC 50-100 /hpf (0-5) H 07/23/17 03:48 Urine WBC 2-5 /hpf (0-5) 07/23/17 03:48 Ur Epithelial Cells MODERATE /lpf (FEW) 07/23/17 03:48 Urine Bacteria FEW /hpf (NONE SEEN) 07/23/17 03:48 Stool Occult Blood NEGATIVE (NEGATIVE) 07/23/17 03:15 Stool Leukocyte NO WBC SEEN 07/23/17 03:15 Random Vancomycin 13.0 ug/mL (5.0-40.0) 07/24/17 09:24 Salicylates < 25.0 mg/L (30.0-100.0) L 07/22/17 10:55 Urine Opiates Screen NEGATIVE (NEGATIVE) 07/23/17 03:45 Urine Methadone Screen NEGATIVE (NEGATIVE) 07/23/17 03:45 Acetaminophen < 10.0 ug/mL (10.0-30.0) L 07/22/17 10:55 Ur Barbiturates Screen NEGATIVE (NEGATIVE) 07/23/17 03:45 Ur Tricyclics Screen NEGATIVE (NEGATIVE) 07/23/17 03:45 Ur Phencyclidine Scrn NEGATIVE (NEGATIVE) 07/23/17 03:45 Amphetamines Screen NEGATIVE (NEGATIVE) 07/23/17 03:45 U Methamphetamines Scrn NEGATIVE (NEGATIVE) 07/23/17 03:45 U Benzodiazepines Scrn NEGATIVE (NEGATIVE) 07/23/17 03:45 U Cocaine Metab Screen NEGATIVE (NEGATIVE) 07/23/17 03:45 U Cannabinoids Screen NEGATIVE (NEGATIVE) 07/23/17 03:45 HIV 1&2 Antibody Screen NEGATIVE (NEG) 07/23/17 03:48 Influenza A (Rapid) NEG FOR INF A 07/22/17 19:20 Influenza B (Rapid) NEG FOR INF B 07/22/17 19:20 Blood Type O POSITIVE 07/23/17 14:40 Antibody Screen NEGATIVE 07/23/17 14:40 Crossmatch See Detail 07/23/17 14:40 - Physical Exam Vitals and I&O: Vital Signs Temp 98.4 F 07/24/17 12:00 Pulse 123 07/24/17 15:35 Resp 21 07/24/17 14:00 BP 120/56 07/24/17 14:15 Pulse Ox 100 07/24/17 15:35 Intake & Output 07/23/17 07/24/17 07/24/17 18:59 06:59 18:59 Intake Total 1553.447 658.880 209.453 Output Total 1100 Balance 453.447 658.880 209.453 Weight (lbs) 60.781 kg Intake: Intake, IV Amount 1353.447 658.880 209.453 Calcium Gluconate 1 gm In 110 110 110 Sodium Chloride 0.9% 100 ml @ 100 mls/hr IV Q8H [facility] Rx#:[id number] Meropenem 500 mg In 50 50 50 Sodium Chloride 0.9% 50 ml @ 100 mls/hr IV Q12H [facility] Rx#:[id number] Propofol 1,000 mg In 100 43.447 50.547 49.453 ml @ 5 MCG/KG/MIN 1.823 mls/hr IV TITR [facility] Rx#: [id number] Sodium Bicarbonate 8.4% 448.333 150 meq In Dextrose 5% 1, 000 ml @ 100 mls/hr IV . [id number] [facility] Rx#:[id number] Sodium Bicarbonate 8.4% 1150 150 meq In Dextrose 5% 1, 000 ml @ 175 mls/hr IV . Q6H35M [facility], [facility] Rx#:[id number] Oral 0 Tube Feeding 0 Albumin 200 Output: Chest Tube Drainage 500 Right Mid-Axillary Chest 500 Urine 600 Active Medications: Current Medications Chlorhexidine Gluconate (Peridex) 15 ml MM 0800,1999 [facility] Stop: 09/22/17 07:59 Last Admin: 07/24/17 08:45 Dose: 15 ml Hydrocortisone Sodium Succinate (Solu-Cortef) 50 mg IVP Q8HR [facility] Stop: 09/22/17 20:59 Propofol (Diprivan) 1,000 mg in 100 mls @ 1.823 mls/hr IV TITR [facility]; 5 MCG/KG/ MIN PRN Reason: Protocol Stop: 09/20/17 21:49 Last Admin: 07/24/17 10:07 Dose: 17 mcg/kg/min, 6.2 mls/hr Levofloxacin (Levaquin Pb) 250 mg in 50 mls @ 50 mls/hr IV Q48HR [facility] Stop: 09/22/17 04:59 Last Admin: 07/24/17 05:51 Dose: 50 mls/hr Meropenem 500 mg/ Sodium (Chloride) 50 mls @ 100 mls/hr IV Q12H [facility] Stop: 09/21/17 03:26 Last Infusion: 07/24/17 08:45 Dose: Infused Norepinephrine Bitartrate 4 mg (/ Dextrose) 254 mls @ 30.48 mls/hr IV TITR PRN ; Protocol; 8 MCG/MIN PRN Reason: BP MAINTENANCE (PER PROTOCOL) Stop: 09/21/17 14:59 Dextrose/Sodium Chloride (D5-0.9%Ns) 1,000 mls @ 75 mls/hr IV .[id number] [facility] Stop: 09/22/17 10:14 Last Admin: 07/24/17 11:25 Dose: 75 mls/hr Ferric Sodium Gluconate Complex 125 mg/ Sodium Chloride 110 mls @ 100 mls/hr IV Q24HR [facility] Stop: 07/31/17 13:05 Last Admin: 07/24/17 14:08 Dose: 100 mls/hr Miscellaneous (Vancomycin Iv Per Pharmacy) 1 ea PRN [facility] Stop: 09/21/17 09:44 Miscellaneous (Probiotic Screen) 1 ea PRN PRN PRN Reason: PROTOCOL Stop: 09/21/17 17:51 Oseltamivir Phosphate (Tamiflu) 30 mg PO DAILY [facility], [facility] Stop: 09/21/17 14:14 General: Alert, No acute distress HEENT: Other (intubated) Neck: Other (right neck central line) Cardiovascular: Other (tachycardia) Lungs: Other (rales bilaterally) Abdomen: Soft, no Tender, no Distended Extremities: Cyanosis (bilateral hand digits ) Skin: Other (echymosis bilateral thigh area and lower leg area) - Procedures Procedures: Procedures Procedure Code Date BLOOD TRANSFUSION SERVICE 01875 07/23/17 DRAINAGE OF R PLEURAL CAV WITH DRAIN DEV, OPEN APPROACH [id number] 07/23/17 INSERT CATH PLEURA W/O IMAGE 04179 07/23/17 INSERT EMERGENCY AIRWAY 24993 07/23/17 INSERT INFUSION DEV IN R INT JUGULAR VEIN, PERC [id number] 07/23/17 INSERT TUNNELED CV CATH 09886 07/23/17 INSERTION OF ENDOTRACHEAL AIRWAY INTO TRACHEA, VIA OPENING [id number] 07/23/17 RESPIRATORY VENTILATION, 24-96 CONSECUTIVE HOURS [id number] 07/23/17 TRANSFUSE NONAUT FROZEN PLASMA IN PERIPH VEIN, PERC 20590S2 07/23/17 TRANSFUSE NONAUT RED BLOOD CELLS IN PERIPH VEIN, [facility] [id number] 07/23/17 VENT MGMT INPAT INIT DAY 07/23/17 VENT MGMT INPAT SUBQ DAY 07/23/17 Assessment/Plan - Problem List Patient Problems: All Active Problems DYSPNEA WITH BODY ACHES AND NUMBNESS (Acute) - Assessment Assessment: Septic shock off vasopressor Severe Gm positive septicemia Acute respiratory failure stable on vent Acute renal failure s/p HD access Elevated liver enzymes worsening DIC Rhabdomyolysis Severe lactic acidosis better Right sided Pneumothorax s/p chest tube placement - Plan Plan: Continue ICU care Vent support Broad spectrum antibiotics Fluid resuscitation Renal function worsening Nephrology ordered HD . s/p HD access placement this am Platelet and PRBC transfusion as needed Case discussed with Nephrology and ID . I have been communicating with Case management here at [facility] in regards for higher level of care transfer once patient is stabl Per case management@ [facility] [place] ( Andreia) who stated that she has been constantly in touch with Anni @[facility] case [facility] in regards for trasnfer update. I was informed from the case management here at [facility] that all the necessary clinical info in regards to this patient has been sent over to patient's IPA ( [facility] case managment) Per [facility] case managment no ICU bed available at the contracted facilities. will keep looking. I myself tried reaching out to [facility] case managment and left voicement for Anni to get contact number for [facility] director of student financial services to discuss the case .Awaiting call back from case managment. I updated patient and family was at the bedside re patient's critical condition all the diagnosis and plan of care . They understood well. Plan of care discussed with nursing staff Overall Poor prognosis Nutritional Asmnt/Malnutr-PDOC - Dietary Evaluation Malnutrition Findings (Please click <Entered> for more info): Nutritional Asmnt/Malnutrition Start: 07/23/17 13: 56 Text: Status: Complete Freq: Document 07/23/17 13:57 LORIE (Rec: 07/23/17 14:14 LORIE [email or web address]) Nutritional Asmnt/Malnutrition Patient General Information Nutritional Screening High Risk Diagnosis acute respiratory failure, PNA , sepsis Pertinent Medical Hx/Surgical Hx HTN, Subjective Information Pt seen in ICU busy with doctor and nurse. Per notes, pt was intubated, NPO status. Per MD notes 07/23, may initiate HD waiting final desicion. Current Diet Order/ Nutrition Support NPO Pertinent Medications Calcium gluconate, Levaquin, sodium bicarbonate, nacl 0.9%, propofol Pertinent Labs 07/23 Na 132, K 3.9, Cl 88, BUN 59, Cr 5.4, Glucose 90, Calcium 5.8, Phos 6.8, Mg 1.5, AST 154, ALT 51, Alb 2.1 Nutritional Hx/Data Height 1.52 m Height (Calculated Centimeters) 152.4 Current Weight (lbs) 60.781 kg Weight (Calculated Kilograms) 60.8 Weight (Calculated Grams) 69561.4 [place] Body Weight 100 % [place] Body Weight 134 Body Mass Index (BMI) 26.2 Weight Status Overweight GI Symptoms GI Symptoms None Current %PO Negligible < 25% Estimated Nutritional Goals BEE in Kcals: Using Current wt Calories/Kcals/Kg 30-35 Kcals Calculated 9433-7896 Protein: Using Current wt Protein g/k.2-1.4 monior renal labs Protein Calculated 73-85 Fluid: ml 9627-4354 or per MD d/t acute renal failure Nutritional Problem 1. Problem Problem altered nutrition related lab values Etiology imbalanced electrolytes, acute renal failure Signs/Symptoms: Na 132, K 3.9, Cl 88, BUN 59, Cr 5.4, Calcium 5.8, Phos 6.8, Mg 1.5 Intervention/Recommendation Comments 1. Monitor NPO status 2. If enteral feeding needed, recomend to start Novasource Renal 20ml/hr continuous, increase to goal rate of 40ml/ hr continuous as tolerated. This will provide 1920kcal, 87g protein and 699ml water, meeting 100% of calorie needs and 102% of protein needs, 3. F/U as high risk in 2 days, 1/4 Expected Outcomes/Goals Expected Outcomes/Goals 1. Pt to meet at least 75% of nutritional needs in 2-3 days 2. Wt stability, skin to remain intact, labs to improve .
--- NOTE | 2017-07-24 16:59 | Cardiology ---
07/23/2017 PROCEDURE: Echocardiogram. The patient of Dr. Catie Caal. M-MODE ECHOCARDIOGRAM: Mitral valve, anterior leaflet of mitral valve shows normal excursion, EF velocity. Posterior leaflet of mitral valve shows normal excursion. Left ventricular posterior wall shows increased thickness, normal excursion. Interventricular septum shows increased thickness, normal excursion, hypertrophy of the left ventricle, ejection fraction 50%. Left atrium normal. Aortic root shows normal dimension, normal excursion of aortic leaflets. CONCLUSION: Hypertrophy of the left ventricle, ejection fraction 50%. 2D ECHO: Long axis view showed normal sized left ventricle with hypertrophy of the left ventricle. Left atrium normal. Aortic root shows normal dimension, normal excursion of aortic leaflets. Short axis view of mitral valve normal. Short axis view of aortic valve normal. Apical four chamber view showed normal sized left ventricle, left atrium, right ventricle, right atrium, tricuspid and mitral valve. Ejection fraction 50%. CONCLUSION: Hypertrophy of the left ventricle, ejection fraction 50%. Doppler study shows mild tricuspid regurgitation, right ventricular systolic pressure 28 mmHg. CONCLUSION: Hypertrophy of the left ventricle, trace tricuspid regurgitation, ejection fraction 50%. JOB# [id number]
[2017-07-24] MEDS: Albumin 25% 25gm/100mL 25 GM/100 ML BTL IV PRN (18:58)
[2017-07-24] MEDS ORDERED: Diltiazem 5 mg/mL 5mL Vial IVP PRN (22:47)
[2017-07-25] MEDS: D5-0.9%NS 1,000 ML IV SCH (01:00)
[2017-07-25] MEDS ORDERED: Albumin 25% 25gm/100mL 25 GM/100 ML BTL IV ONE (02:29)
[2017-07-25] MEDS: Albumin 25% 25gm/100mL 25 GM/100 ML BTL IV PRN (02:35)
[2017-07-25] MEDS: Hydrocortisone Sodium Succ 100 mg Vial IVP SCH (04:03)
[2017-07-25 05:31] LABS: RED CELL DISTRIBUTION WIDTH 15.9 % (11.5-20.0)
[2017-07-25 05:39] LABS: HEMATOCRIT 24.2 % (41.0-60); HEMOGLOBIN 8.7 gm/dL (12-16); MEAN CELL VOLUME 76.8 fl (81-100); MEAN CORPUSCULAR HEMOGLOBIN 27.5 pg (27.0-31.0); MEAN CORPUSCULAR HGB CONC 35.9 pg (28.0-36.0); MEAN PLATELET VOLUME 8.5 fl; RED BLOOD COUNT 3.15 Mil/cmm (3.80-5.10)
[2017-07-25 05:48] LABS: PLATELET COUNT 10 Th/cmm (150-400); WHITE BLOOD COUNT 18.2 Th/cmm (4.8-10.8)
[2017-07-25 05:50] LABS: ALB/GLOB RATIO 1.9 (1.0-1.8); ALBUMIN 2.8 gm/dL (3.7-5.3); ANION GAP 16.9 (7.0-16.0); BILIRUBIN,DIRECT 4.94 mg/dL (0.0-0.2); BILIRUBIN,TOTAL 8.1 mg/dL (0.3-1.0); CALCIUM SERUM 6.7 mg/dL (8.6-10.3); CARBON DIOXIDE 31.4 mEq/L (21.0-31.0); GFR AFRICAN-AMERICAN 11.3 ml/min (>90); GFR NON AFRICAN-AMERICAN 9.3 ml/min; MAGNESIUM 1.8 mg/dL (1.9-2.7); POTASSIUM SERUM 3.3 mEq/L (3.5-5.1); TOTAL PROTEIN,SERUM 4.3 gm/dL (6.0-8.3)
[2017-07-25 06:12] LABS: CREATININE - SERUM 5.5 mg/dL (0.6-1.2)
[2017-07-25 06:35] LABS: MANUAL DIFF REQUIRED? YES; TOTAL CELLS COUNTED 100
[2017-07-25 06:39] LABS: BAND NEUTROPHILE 16 % (0-10); LYMPHOCYTE 6 % (20-50); MONOCYTE 3 % (2-10); NEUTROPHILS 75 % (40-80)
[2017-07-25 06:40] LABS: PLATELET ESTIMATE DECREASED PLATELETS (NORMAL)
[2017-07-25] MEDS: Meropenem 500 MG in Sodium Chloride 0.9% 50 ML IV SCH ×2 (06:55→19:11)
[2017-07-25] MEDS: Chlorhexidine Gluconate 0.12% 15mL Mouthwash MM SCH ×2 (08:25→19:51)
--- NOTE | 2017-07-25 08:41 | Diagnostic Imaging Report ---
Portable chest x-ray HISTORY: Shortness of breath, pneumothorax Compared with prior exam of July 24, 2017, no change right chest tube position. Previously noted right pneumothorax is difficult to define. Persistent radiolucencies consistent with previously reported loculated air collections noted in the right and to a lesser degree left lower lobes. An endotracheal tube tip is approximately 4.0 cm above the jace just below the thoracic inlet. This may be advanced approximately 1-2 cm. IMPRESSION: 1. No significant change in the pulmonary status.
[2017-07-25 09:27] LABS: pH 7.55 (7.35-7.45)
[2017-07-25] MEDS ORDERED: Dexamethasone Sodium Phos 4 mg/mL Vial IVP SCH (11:00)
--- NOTE | 2017-07-25 11:02 | General Progress Note ---
Subjective - Review of Systems Service Date: 07/25/17 Events since last encounter: on propofol Subjective: sedated intubated Objective - Results Result Diagrams: 07/25/17 04:35 07/25/17 04:35 Recent Labs: Laboratory Last Values WBC 18.2 Th/cmm (4.8-10.8) H 07/25/17 04:35 RBC 3.15 Mil/cmm (3.80-5.10) L 07/25/17 04:35 Hgb 8.7 gm/dL (12-16) L 07/25/17 04:35 Hct 24.2 % (41.0-60) L 07/25/17 04:35 MCV 76.8 fl (81-100) L 07/25/17 04:35 MCH 27.5 pg (27.0-31.0) 07/25/17 04:35 MCHC Differential 35.9 pg (28.0-36.0) 07/25/17 04:35 RDW 15.9 % (11.5-20.0) 07/25/17 04:35 Plt Count 10 Th/cmm (150-400) L* 07/25/17 04:35 MPV 8.5 fl 07/25/17 04:35 Band Neutrophils % 16 % (0-10) H 07/25/17 04:35 Neutrophils (Manual) 75 % (40-80) 07/25/17 04:35 Lymphocytes 6 % (20-50) L 07/25/17 04:35 Monocytes 3 % (2-10) 07/25/17 04:35 Eosinophils 0 % (0-5) 07/23/17 14:40 Basophils 0 % (0-3) 07/23/17 14:40 Hypochromia 1+ 07/23/17 21:47 Platelet Estimate DECREASED PLATELETS (NORMAL) 07/25/17 04:35 Platelet Morphology NORMAL (NORMAL) 07/23/17 14:40 Polychromasia 1+ 07/23/17 21:47 Anisocytosis 1+ 07/22/17 10:55 Microcytosis 3+ 07/23/17 14:40 Tear Drop Cells 2+ 07/23/17 21:47 Stomatocytes 1+ 07/23/17 21:47 RBC Morph Micro Appear ABNORMAL (NORMAL) 07/23/17 14:40 ESR 20 mm/hr (0-30) 07/23/17 Unknown Plt Count 10 Th/cmm (150-750) L* 07/24/17 09:24 PT 12.4 SECONDS (9.5-11.5) H 07/24/17 09:24 INR 1.18 (0.5-1.4) 07/24/17 09:24 PTT (Actin FS) > 150.0 SECONDS (26.0-38.0) H* 07/24/17 09:24 Fibrinogen 193.0 mg/dL (200.0-400.0) L 07/24/17 09:24 D-Dimer 4060 ng/mL (100-400) H 07/24/17 09:24 Specimen Source Arterial 07/25/17 09:14 Sample Site A-LINE 07/25/17 09:14 pH 7.55 (7.35-7.45) H 07/25/17 09:14 pCO2 39.0 mmHg (35.0-45.0) 07/25/17 09:14 pO2 145.0 mmHg (80.0-100.0) H 07/25/17 09:14 HCO3 33.4 mEq/L (20.0-26.0) H 07/25/17 09:14 Base Excess 10.8 mEq/L (-3.0-3.0) H 07/25/17 09:14 O2 Saturation 99.0 % (92.0-100.0) 07/25/17 09:14 Roland Test NA 07/25/17 09:14 Vent Rate 14 07/25/17 09:14 Inspired O2 40 07/25/17 09:14 Tidal Volume NA 07/25/17 09:14 PEEP NA 07/25/17 09:14 Pressure (ins/psv/peep) NA 07/25/17 09:14 Critical Value LZHANG 07/25/17 09:14 Sodium 135 mEq/L (136-145) L 07/25/17 04:35 Potassium 3.3 mEq/L (3.5-5.1) L 07/25/17 04:35 Chloride 90 mEq/L (98-107) L 07/25/17 04:35 Carbon Dioxide 31.4 mEq/L (21.0-31.0) H 07/25/17 04:35 Anion Gap 16.9 (7.0-16.0) H 07/25/17 04:35 BUN 54 mg/dL (7-25) H 07/25/17 04:35 Creatinine 5.5 mg/dL (0.6-1.2) H* 07/25/17 04:35 Est GFR ( Amer) 11.3 ml/min (>90) 07/25/17 04:35 Est GFR (Non-Af Amer) 9.3 ml/min 07/25/17 04:35 BUN/Creatinine Ratio 9.8 07/25/17 04:35 Glucose 120 mg/dL (70-105) H 07/25/17 04:35 Whole Bld Lactic Acid 6.09 mmol/L (0.60-1.99) H* 07/24/17 11:30 Uric Acid 7.7 mg/dL (2.3-6.6) H 07/23/17 Unknown Calcium 6.7 mg/dL (8.6-10.3) L 07/25/17 04:35 Phosphorus 4.9 mg/dL (2.5-5.0) 07/24/17 15:00 Magnesium 1.8 mg/dL (1.9-2.7) L 07/25/17 04:35 Iron 39 ug/dL (27-159) 07/22/17 10:55 TIBC 376 ug/dL (250-450) 07/22/17 10:55 Iron Saturation 10 % (15-55) L 07/22/17 10:55 Unsaturated IBC 337 ug/dL (131-425) 07/22/17 10:55 Ferritin 3877 ng/mL (15-150) H 07/22/17 10:55 Total Bilirubin 8.1 mg/dL (0.3-1.0) H 07/25/17 04:35 Direct Bilirubin 4.94 mg/dL (0.0-0.2) H 07/25/17 04:35 AST 581 U/L (13-39) H 07/25/17 04:35 ALT 228 U/L (7-52) H 07/25/17 04:35 Alkaline Phosphatase 85 U/L (34-104) 07/25/17 04:35 Creatine Kinase 2864 U/L (30-223) H 07/23/17 Unknown CK-MB (CK-2) 95.3 ng/mL (0.6-6.3) H 07/23/17 Unknown Troponin I 0.07 ng/mL (0.01-0.05) H* 07/22/17 10:55 C-Reactive Protein 34.1 mg/dL (0.0-0.9) H 07/24/17 09:24 B-Natriuretic Peptide 511.0 pg/mL (5.0-100.0) H 07/22/17 10:55 Total Protein 4.3 gm/dL (6.0-8.3) L 07/25/17 04:35 Albumin 2.8 gm/dL (3.7-5.3) L 07/25/17 04:35 Globulin 1.5 gm/dL 07/25/17 04:35 Albumin/Globulin Ratio 1.9 (1.0-1.8) H 07/25/17 04:35 Triglycerides 536 mg/dL (<150) H 07/22/17 10:55 Cholesterol 129 mg/dL (<200) 07/22/17 10:55 LDL Cholesterol Direct 23 mg/dL (75-193) L 07/22/17 10:55 HDL Cholesterol 15 mg/dL (23-92) L 07/22/17 10:55 Amylase 276 U/L (29-103) H 07/22/17 19:04 Lipase 19 U/L (11-82) 07/22/17 19:04 TSH 0.34 uIU/ml (0.34-5.60) 07/23/17 21:47 Serum , Qual NEGATIVE (NEGATIVE) 07/22/17 10:55 Urine Source [place] 07/23/17 03:48 Urine Color ORANGE 07/23/17 03:48 Urine Clarity HAZY (CLEAR) 07/23/17 03:48 Urine pH 7.0 (4.6 - 8.0) 07/23/17 03:48 Ur Specific [place] 1.010 (1.005-1.030) 07/23/17 03:48 Urine Protein 100 mg/dL (NEGATIVE) H 07/23/17 03:48 Urine Glucose (UA) NEGATIVE mg/dL (NEGATIVE) 07/23/17 03:48 Urine Ketones NEGATIVE mg/dL (NEGATIVE) 07/23/17 03:48 Urine Blood LARGE (NEGATIVE) H 07/23/17 03:48 Urine Nitrate NEGATIVE (NEGATIVE) 07/23/17 03:48 Urine Bilirubin NEGATIVE (NEGATIVE) 07/23/17 03:48 Urine Urobilinogen 0.2 E.U./dL (0.2 - 1.0) 07/23/17 03:48 Ur Leukocyte Esterase NEGATIVE (NEGATIVE) 07/23/17 03:48 Urine RBC 50-100 /hpf (0-5) H 07/23/17 03:48 Urine WBC 2-5 /hpf (0-5) 07/23/17 03:48 Ur Epithelial Cells MODERATE /lpf (FEW) 07/23/17 03:48 Urine Bacteria FEW /hpf (NONE SEEN) 07/23/17 03:48 Stool Occult Blood NEGATIVE (NEGATIVE) 07/23/17 03:15 Stool Leukocyte NO WBC SEEN 07/23/17 03:15 Random Vancomycin 13.0 ug/mL (5.0-40.0) 07/24/17 09:24 Salicylates < 25.0 mg/L (30.0-100.0) L 07/22/17 10:55 Urine Opiates Screen NEGATIVE (NEGATIVE) 07/23/17 03:45 Urine Methadone Screen NEGATIVE (NEGATIVE) 07/23/17 03:45 Acetaminophen < 10.0 ug/mL (10.0-30.0) L 07/22/17 10:55 Ur Barbiturates Screen NEGATIVE (NEGATIVE) 07/23/17 03:45 Ur Tricyclics Screen NEGATIVE (NEGATIVE) 07/23/17 03:45 Ur Phencyclidine Scrn NEGATIVE (NEGATIVE) 07/23/17 03:45 Amphetamines Screen NEGATIVE (NEGATIVE) 07/23/17 03:45 U Methamphetamines Scrn NEGATIVE (NEGATIVE) 07/23/17 03:45 U Benzodiazepines Scrn NEGATIVE (NEGATIVE) 07/23/17 03:45 U Cocaine Metab Screen NEGATIVE (NEGATIVE) 07/23/17 03:45 U Cannabinoids Screen NEGATIVE (NEGATIVE) 07/23/17 03:45 HIV 1&2 Antibody Screen NEGATIVE (NEG) 07/23/17 03:48 Influenza A (Rapid) NEG FOR INF A 07/22/17 19:20 Influenza B (Rapid) NEG FOR INF B 07/22/17 19:20 Blood Type O POSITIVE 07/24/17 12:43 Antibody Screen NEGATIVE 07/24/17 12:43 Crossmatch See Detail 07/23/17 14:40 - Physical Exam Vitals and I&O: Vital Signs Temp 98.1 F 07/25/17 10:00 Pulse 121 07/25/17 10:30 Resp 22 07/25/17 10:19 BP 117/63 07/25/17 10:30 Pulse Ox 100 07/25/17 10:30 Intake & Output 07/24/17 07/25/17 07/25/17 18:59 06:59 18:59 Intake Total 222.475 9054 Output Total 1600 200 Balance 348.458 1687 -200 Weight (lbs) 60.781 kg 60.781 kg Intake: Intake, IV Amount 019.073 6118 Albumin 25% 25gm/100mL 25 100 gm In 100 ml @ 50 mls/hr IV PRN PRN Rx#:[id number] Calcium Gluconate 1 gm In 110 Sodium Chloride 0.9% 100 ml @ 100 mls/hr IV Q8H [facility] Rx#:[id number] D5-0.9%Ns 1,000 ml @ 75 1000 mls/hr IV .[id number] [facility] Rx #:[id number] Meropenem 500 mg In 50 50 Sodium Chloride 0.9% 50 ml @ 100 mls/hr IV Q12H [facility] Rx#:[id number] Propofol 1,000 mg In 100 49.453 100 ml @ 5 MCG/KG/MIN 1.823 mls/hr IV TITR [facility] Rx#: [id number] Oral 0 Blood Product 1450 Albumin 100 Output: Chest Tube Drainage 100 Right Mid-Axillary Chest 100 Urine 100 100 Hemodialysis 1500 Other: # Bowel Movements 2 0 Active Medications: Current Medications Chlorhexidine Gluconate (Peridex) 15 ml MM 799,1999 [facility] Stop: 09/22/17 07:59 Last Admin: 07/24/17 21:00 Dose: 15 ml Dexamethasone Sodium Phosphate (Decadron) 40 mg IVP DAILY [facility] Stop: 07/29/17 10:59 Diltiazem HCl (Cardizem) 20 mg IVP Q4H PRN PRN Reason: A-FIB Stop: 09/22/17 22:46 Last Admin: 07/24/17 23:19 Dose: 20 mg Propofol (Diprivan) 1,000 mg in 100 mls @ 1.823 mls/hr IV TITR [facility]; 5 MCG/KG/ MIN PRN Reason: Protocol Stop: 09/20/17 21:49 Last Admin: 07/25/17 06:35 Dose: 15 mcg/kg/min, 5.47 mls/hr Levofloxacin (Levaquin Pb) 250 mg in 50 mls @ 50 mls/hr IV Q48HR [facility] Stop: 09/22/17 04:59 Last Admin: 07/24/17 05:51 Dose: 50 mls/hr Meropenem 500 mg/ Sodium (Chloride) 50 mls @ 100 mls/hr IV Q12H [facility] Stop: 09/21/17 03:26 Last Admin: 07/25/17 06:55 Dose: 100 mls/hr Norepinephrine Bitartrate 4 mg (/ Dextrose) 254 mls @ 30.48 mls/hr IV TITR PRN ; Protocol; 8 MCG/MIN PRN Reason: BP MAINTENANCE (PER PROTOCOL) Stop: 09/21/17 14:59 Dextrose/Sodium Chloride (D5-0.9%Ns) 1,000 mls @ 75 mls/hr IV .[id number] [facility] Stop: 09/22/17 10:14 Last Admin: 07/25/17 01:00 Dose: 75 mls/hr Ferric Sodium Gluconate Complex 125 mg/ Sodium Chloride 110 mls @ 100 mls/hr IV Q24HR [facility] Stop: 07/31/17 13:05 Last Admin: 07/24/17 14:08 Dose: 100 mls/hr Amino Acids/Electrolytes (Procalamine) 1,000 mls @ 40 mls/hr IV .Q24H [facility] Stop: 09/23/17 15:59 Miscellaneous (Vancomycin Iv Per Pharmacy) 1 ea MC PRN [facility] Stop: 09/21/17 09:44 Miscellaneous (Probiotic Screen) 1 ea MC PRN PRN PRN Reason: PROTOCOL Stop: 09/21/17 17:51 Miscellaneous (Tpn Per Pharmacy) 1 ea PRN PRN PRN Reason: PROTOCOL Stop: 09/22/17 18:45 Oseltamivir Phosphate (Tamiflu) 30 mg PO DAILY [facility] Stop: 09/21/17 14:14 General: Alert, No acute distress, Other (sedated) HEENT: Atraumatic, Other (intubated) Neck: Other (right neck central line) Cardiovascular: Other (tachycardia) Lungs: Other (rales bilaterally, right chest subclavian tracey, right chest tube) Abdomen: Soft, no Tender, no Distended Extremities: Cyanosis (bilateral hand digits ischemic changes) Skin: Other (echymosis bilateral thigh area and lower leg area) - Procedures Procedures: Procedures Procedure Code Date BLOOD TRANSFUSION SERVICE 13931 07/23/17 DRAINAGE OF R PLEURAL CAV WITH DRAIN DEV, OPEN APPROACH [id number] 07/23/17 INSERT CATH PLEURA W/O IMAGE 35014 07/23/17 INSERT EMERGENCY AIRWAY 09129 07/23/17 INSERT INFUSION DEV IN R INT JUGULAR VEIN, PERC [id number] 07/23/17 INSERT TUNNELED CV CATH 47410 07/23/17 INSERTION OF ENDOTRACHEAL AIRWAY INTO TRACHEA, VIA OPENING [id number] 07/23/17 RESPIRATORY VENTILATION, 24-96 CONSECUTIVE HOURS [id number] 07/23/17 TRANSFUSE NONAUT FROZEN PLASMA IN PERIPH VEIN, PERC 27519V6 07/23/17 TRANSFUSE NONAUT RED BLOOD CELLS IN PERIPH VEIN, PERC 61470C0 07/23/17 VENT MGMT INPAT INIT DAY 54837 07/23/17 VENT MGMT INPAT SUBQ DAY 78011 07/23/17 Assessment/Plan - Problem List Patient Problems: All Active Problems DYSPNEA WITH BODY ACHES AND NUMBNESS (Acute) - Assessment Assessment: * Septic shock * Renal failure on dialysis * liver failure * Respiratory failure * Pneumothorax * Pneumonia * DIC * peripheral ischemic changes in fingers and toes CHECK CORTISOLE level Continue STEROIDS, change to high dose decadron for likely immune thrombocytopenia plt not responding to transfusion. DIC panel stat Nutritional Asmnt/Malnutr-PDOC - Dietary Evaluation Malnutrition Findings (Please click <Entered> for more info): Nutritional Asmnt/Malnutrition Start: 07/23/17 13: 56 Text: Status: Complete Freq: Document 07/23/17 13:57 LCHENG (Rec: 07/23/17 14:14 LCHENG [email or web address]) Nutritional Asmnt/Malnutrition Patient General Information Nutritional Screening High Risk Diagnosis acute respiratory failure, PNA , sepsis Pertinent Medical Hx/Surgical Hx HTN, Subjective Information Pt seen in ICU busy with doctor and nurse. Per notes, pt was intubated, NPO status. Per MD notes /2, may initiate HD waiting final desicion. Current Diet Order/ Nutrition Support NPO Pertinent Medications Calcium gluconate, Levaquin, sodium bicarbonate, nacl 0.9%, propofol Pertinent Labs 1/2 Na 132, K 3.9, Cl 88, BUN 59, Cr 5.4, Glucose 90, Calcium 5.8, Phos 6.8, Mg 1.5, AST 154, ALT 51, Alb 2.1 Nutritional Hx/Data Height 1.52 m Height (Calculated Centimeters) 152.4 Current Weight (lbs) 60.781 kg Weight (Calculated Kilograms) 60.8 Weight (Calculated Grams) 75881.4 [place] Body Weight 100 % [place] Body Weight 134 Body Mass Index (BMI) 26.2 Weight Status Overweight GI Symptoms GI Symptoms None Current %PO Negligible < 25% Estimated Nutritional Goals BEE in Kcals: Using Current wt Calories/Kcals/Kg 30-35 Kcals Calculated 4832-2611 Protein: Using Current wt Protein g/k.2-1.4 monior renal labs Protein Calculated 73-85 Fluid: ml 5444-5733 or per MD d/t acute renal failure Nutritional Problem 1. Problem Problem altered nutrition related lab values Etiology imbalanced electrolytes, acute renal failure Signs/Symptoms: Na 132, K 3.9, Cl 88, BUN 59, Cr 5.4, Calcium 5.8, Phos 6.8, Mg 1.5 Intervention/Recommendation Comments 1. Monitor NPO status 2. If enteral feeding needed, recomend to start Novasource Renal 20ml/hr continuous, increase to goal rate of 40ml/ hr continuous as tolerated. This will provide 1920kcal, 87g protein and 699ml water, meeting 100% of calorie needs and 102% of protein needs, 3. F/U as high risk in 2 days, 1/4 Expected Outcomes/Goals Expected Outcomes/Goals 1. Pt to meet at least 75% of nutritional needs in 2-3 days 2. Wt stability, skin to remain intact, labs to improve .
[2017-07-25 11:47] LABS: DDIMER QUANT > 5000 ng/mL (100-400)
[2017-07-25 11:49] LABS: PROTHROMBIN TIME (TEST) 11.8 SECONDS (9.5-11.5)
[2017-07-25 11:50] LABS: INR 1.12 (0.5-1.4)
[2017-07-25] MEDS ORDERED: Dexamethasone Sodium Phos 10 mg/mL PF Vial IVP SCH (12:00)
[2017-07-25 12:12] LABS: ANTI-NUCLEAR AB SCREEN Negative; ANTITRYPSIN SERUM A1 224 mg/dL (90-200); CERULOPLASMIN 34.4 mg/dL (19.0-39.0); F1 ACTIN-SMOOTH MUSC IGG 6 Units (0-19); FERRITIN 3523 ng/mL (15-150); GAMMA GLUTAMYL TRANSFERASE 40 IU/L (0-60); HEP A AB IGM Negative (Negative); HEP B CORE IGM Negative (Negative); HEP B SURFACE AG QL Negative (Negative); HEP C ANTIBODY 0.2 s/co ratio (0.0-0.9); MITOCHONDRIAL AB 5.2 Units (0.0-20.0)
[2017-07-25] MEDS: Sodium Ferric Gluconate 125 MG in Sodium Chloride 0.9% 100 ML IV SCH (13:00)
[2017-07-25] MEDS ORDERED: D5-0.9NS w/KCL 20mEq 1,000 ML IV SCH (13:22)
[2017-07-25] MEDS ORDERED: Mag Sulfate 2gm/50mL Premix 2 GM/50 ML BAG IV ONE (13:23)
--- NOTE | 2017-07-25 13:34 | General Progress Note ---
Subjective - Review of Systems Service Date: 07/25/17 Subjective: sedated, on vent Objective - Results Result Diagrams: 07/25/17 04:35 07/25/17 04:35 Recent Labs: Laboratory Last Values WBC 18.2 Th/cmm (4.8-10.8) H 07/25/17 04:35 RBC 3.15 Mil/cmm (3.80-5.10) L 07/25/17 04:35 Hgb 8.7 gm/dL (12-16) L 07/25/17 04:35 Hct 24.2 % (41.0-60) L 07/25/17 04:35 MCV 76.8 fl (81-100) L 07/25/17 04:35 MCH 27.5 pg (27.0-31.0) 07/25/17 04:35 MCHC Differential 35.9 pg (28.0-36.0) 07/25/17 04:35 RDW 15.9 % (11.5-20.0) 07/25/17 04:35 Plt Count 10 Th/cmm (150-400) L* 07/25/17 04:35 MPV 8.5 fl 07/25/17 04:35 Band Neutrophils % 16 % (0-10) H 07/25/17 04:35 Neutrophils (Manual) 75 % (40-80) 07/25/17 04:35 Lymphocytes 6 % (20-50) L 07/25/17 04:35 Monocytes 3 % (2-10) 07/25/17 04:35 Eosinophils 0 % (0-5) 07/23/17 14:40 Basophils 0 % (0-3) 07/23/17 14:40 Hypochromia 1+ 07/23/17 21:47 Platelet Estimate DECREASED PLATELETS (NORMAL) 07/25/17 04:35 Platelet Morphology NORMAL (NORMAL) 07/23/17 14:40 Polychromasia 1+ 07/23/17 21:47 Anisocytosis 1+ 07/22/17 10:55 Microcytosis 3+ 07/23/17 14:40 Tear Drop Cells 2+ 07/23/17 21:47 Stomatocytes 1+ 07/23/17 21:47 RBC Morph Micro Appear ABNORMAL (NORMAL) 07/23/17 14:40 ESR 20 mm/hr (0-30) 07/23/17 Unknown Plt Count 10 Th/cmm (150-750) L* 07/25/17 10:50 PT 11.8 SECONDS (9.5-11.5) H 07/25/17 10:50 INR 1.12 (0.5-1.4) 07/25/17 10:50 PTT (Actin FS) 31.2 SECONDS (26.0-38.0) 07/25/17 10:50 Fibrinogen 204.0 mg/dL (200.0-400.0) 07/25/17 10:50 D-Dimer > 5000 ng/mL (100-400) H 07/25/17 10:50 Specimen Source Arterial 07/25/17 09:14 Sample Site A-LINE 07/25/17 09:14 pH 7.55 (7.35-7.45) H 07/25/17 09:14 pCO2 39.0 mmHg (35.0-45.0) 07/25/17 09:14 pO2 145.0 mmHg (80.0-100.0) H 07/25/17 09:14 HCO3 33.4 mEq/L (20.0-26.0) H 07/25/17 09:14 Base Excess 10.8 mEq/L (-3.0-3.0) H 07/25/17 09:14 O2 Saturation 99.0 % (92.0-100.0) 07/25/17 09:14 Roland Test NA 07/25/17 09:14 Vent Rate 14 07/25/17 09:14 Inspired O2 40 07/25/17 09:14 Tidal Volume NA 07/25/17 09:14 PEEP NA 07/25/17 09:14 Pressure (ins/psv/peep) NA 07/25/17 09:14 Critical Value LZHANG 07/25/17 09:14 Sodium 135 mEq/L (136-145) L 07/25/17 04:35 Potassium 3.3 mEq/L (3.5-5.1) L 07/25/17 04:35 Chloride 90 mEq/L (98-107) L 07/25/17 04:35 Carbon Dioxide 31.4 mEq/L (21.0-31.0) H 07/25/17 04:35 Anion Gap 16.9 (7.0-16.0) H 07/25/17 04:35 BUN 54 mg/dL (7-25) H 07/25/17 04:35 Creatinine 5.5 mg/dL (0.6-1.2) H* 07/25/17 04:35 Est GFR ( Amer) 11.3 ml/min (>90) 07/25/17 04:35 Est GFR (Non-Af Amer) 9.3 ml/min 07/25/17 04:35 BUN/Creatinine Ratio 9.8 07/25/17 04:35 Glucose 120 mg/dL (70-105) H 07/25/17 04:35 Whole Bld Lactic Acid 6.09 mmol/L (0.60-1.99) H* 07/24/17 11:30 Uric Acid 7.7 mg/dL (2.3-6.6) H 07/23/17 Unknown Calcium 6.7 mg/dL (8.6-10.3) L 07/25/17 04:35 Phosphorus 4.9 mg/dL (2.5-5.0) 07/24/17 15:00 Magnesium 1.7 mg/dL (1.9-2.7) L 07/25/17 10:50 Iron 39 ug/dL (27-159) 07/22/17 10:55 TIBC 376 ug/dL (250-450) 07/22/17 10:55 Iron Saturation 10 % (15-55) L 07/22/17 10:55 Unsaturated IBC 337 ug/dL (131-425) 07/22/17 10:55 Ferritin 3523 ng/mL (15-150) H 07/23/17 03:48 Total Bilirubin 8.1 mg/dL (0.3-1.0) H 07/25/17 04:35 Direct Bilirubin 4.94 mg/dL (0.0-0.2) H 07/25/17 04:35 GGTP 40 IU/L (0-60) 07/23/17 03:48 AST 581 U/L (13-39) H 07/25/17 04:35 ALT 228 U/L (7-52) H 07/25/17 04:35 Alkaline Phosphatase 85 U/L (34-104) 07/25/17 04:35 Creatine Kinase 2864 U/L (30-223) H 07/23/17 Unknown CK-MB (CK-2) 95.3 ng/mL (0.6-6.3) H 07/23/17 Unknown Troponin I 0.07 ng/mL (0.01-0.05) H* 07/22/17 10:55 C-Reactive Protein 34.1 mg/dL (0.0-0.9) H 07/24/17 09:24 B-Natriuretic Peptide 511.0 pg/mL (5.0-100.0) H 07/22/17 10:55 Total Protein 4.3 gm/dL (6.0-8.3) L 07/25/17 04:35 Albumin 2.8 gm/dL (3.7-5.3) L 07/25/17 04:35 Globulin 1.5 gm/dL 07/25/17 04:35 Albumin/Globulin Ratio 1.9 (1.0-1.8) H 07/25/17 04:35 Xcbfg-2-Bzygahwxlmo 224 mg/dL (90-200) H 07/23/17 03:48 Ceruloplasmin 34.4 mg/dL (19.0-39.0) 07/23/17 03:48 Triglycerides 536 mg/dL (<150) H 07/22/17 10:55 Cholesterol 129 mg/dL (<200) 07/22/17 10:55 LDL Cholesterol Direct 23 mg/dL (75-193) L 07/22/17 10:55 HDL Cholesterol 15 mg/dL (23-92) L 07/22/17 10:55 Amylase 276 U/L (29-103) H 07/22/17 19:04 Lipase 19 U/L (11-82) 07/22/17 19:04 TSH 0.34 uIU/ml (0.34-5.60) 07/23/17 21:47 Serum , Qual NEGATIVE (NEGATIVE) 07/22/17 10:55 PTH Intact 434 pg/mL (15-65) H 07/23/17 21:47 Urine Source [place] 07/23/17 03:48 Urine Color ORANGE 07/23/17 03:48 Urine Clarity HAZY (CLEAR) 07/23/17 03:48 Urine pH 7.0 (4.6 - 8.0) 07/23/17 03:48 Ur Specific [place] 1.010 (1.005-1.030) 07/23/17 03:48 Urine Protein 100 mg/dL (NEGATIVE) H 07/23/17 03:48 Urine Glucose (UA) NEGATIVE mg/dL (NEGATIVE) 07/23/17 03:48 Urine Ketones NEGATIVE mg/dL (NEGATIVE) 07/23/17 03:48 Urine Blood LARGE (NEGATIVE) H 07/23/17 03:48 Urine Nitrate NEGATIVE (NEGATIVE) 07/23/17 03:48 Urine Bilirubin NEGATIVE (NEGATIVE) 07/23/17 03:48 Urine Urobilinogen 0.2 E.U./dL (0.2 - 1.0) 07/23/17 03:48 Ur Leukocyte Esterase NEGATIVE (NEGATIVE) 07/23/17 03:48 Urine RBC 50-100 /hpf (0-5) H 07/23/17 03:48 Urine WBC 2-5 /hpf (0-5) 07/23/17 03:48 Ur Epithelial Cells MODERATE /lpf (FEW) 07/23/17 03:48 Urine Bacteria FEW /hpf (NONE SEEN) 07/23/17 03:48 Stool Occult Blood NEGATIVE (NEGATIVE) 07/23/17 03:15 Stool Leukocyte NO WBC SEEN 07/23/17 03:15 Random Vancomycin 13.0 ug/mL (5.0-40.0) 07/24/17 09:24 Salicylates < 25.0 mg/L (30.0-100.0) L 07/22/17 10:55 Urine Opiates Screen NEGATIVE (NEGATIVE) 07/23/17 03:45 Urine Methadone Screen NEGATIVE (NEGATIVE) 07/23/17 03:45 Acetaminophen < 10.0 ug/mL (10.0-30.0) L 07/22/17 10:55 Ur Barbiturates Screen NEGATIVE (NEGATIVE) 07/23/17 03:45 Ur Tricyclics Screen NEGATIVE (NEGATIVE) 07/23/17 03:45 Ur Phencyclidine Scrn NEGATIVE (NEGATIVE) 07/23/17 03:45 Amphetamines Screen NEGATIVE (NEGATIVE) 07/23/17 03:45 U Methamphetamines Scrn NEGATIVE (NEGATIVE) 07/23/17 03:45 U Benzodiazepines Scrn NEGATIVE (NEGATIVE) 07/23/17 03:45 U Cocaine Metab Screen NEGATIVE (NEGATIVE) 07/23/17 03:45 U Cannabinoids Screen NEGATIVE (NEGATIVE) 07/23/17 03:45 DAQUAN Screen Negative 07/23/17 03:48 Anti-Mitochondrial Ab 5.2 Units (0.0-20.0) 07/23/17 03:48 Smooth Muscle IgG Ab 6 Units (0-19) 07/23/17 03:48 Hepatitis A IgM Ab Negative (Negative) 07/23/17 03:48 Hep Bs Antigen Negative (Negative) 07/23/17 03:48 Hep B Core IgM Ab Negative (Negative) 07/23/17 03:48 Hepatitis C Antibody 0.2 s/co ratio (0.0-0.9) 07/23/17 03:48 HIV 1&2 Antibody Screen NEGATIVE (NEG) 07/23/17 03:48 Influenza A (Rapid) NEG FOR INF A 07/22/17 19:20 Influenza B (Rapid) NEG FOR INF B 07/22/17 19:20 Blood Type O POSITIVE 07/24/17 12:43 Antibody Screen NEGATIVE 07/24/17 12:43 Crossmatch See Detail 07/23/17 14:40 - Physical Exam Vitals and I&O: Vital Signs Temp 98.1 F 07/25/17 10:00 Pulse 95 07/25/17 11:49 Resp 22 07/25/17 10:19 BP 117/63 07/25/17 10:30 Pulse Ox 100 07/25/17 11:49 Intake & Output 07/24/17 07/25/17 07/25/17 18:59 06:59 18:59 Intake Total 267.508 8222 30.906 Output Total 1600 200 Balance 529.565 0379 -169.094 Weight (lbs) 60.781 kg 60.781 kg Intake: Intake, IV Amount 602.982 0745 30.906 Albumin 25% 25gm/100mL 25 100 gm In 100 ml @ 50 mls/hr IV PRN PRN Rx#:[id number] Calcium Gluconate 1 gm In 110 Sodium Chloride 0.9% 100 ml @ 100 mls/hr IV Q8H [facility] Rx#:[id number] D5-0.9%Ns 1,000 ml @ 75 1000 mls/hr IV .[id number] [facility] Rx #:[id number] Meropenem 500 mg In 50 50 Sodium Chloride 0.9% 50 ml @ 100 mls/hr IV Q12H [facility] Rx#:[id number] Propofol 1,000 mg In 100 49.453 100 30.906 ml @ 5 MCG/KG/MIN 1.823 mls/hr IV TITR [facility] Rx#: [id number] Oral 0 Blood Product 1450 Albumin 100 Output: Chest Tube Drainage 100 Right Mid-Axillary Chest 100 Urine 100 100 Hemodialysis 1500 Other: # Bowel Movements 2 0 Active Medications: Current Medications Chlorhexidine Gluconate (Peridex) 15 ml MM 08,1999 [facility] Stop: 09/22/17 07:59 Last Admin: 07/25/17 08:25 Dose: 15 ml Dexamethasone Sodium Phosphate (Decadron) 40 mg IVP DAILY [facility] Stop: 09/23/17 11:59 Last Admin: 07/25/17 12:11 Dose: 40 mg Diltiazem HCl (Cardizem) 20 mg IVP Q4H PRN PRN Reason: A-FIB Stop: 09/22/17 22:46 Last Admin: 07/24/17 23:19 Dose: 20 mg Propofol (Diprivan) 1,000 mg in 100 mls @ 1.823 mls/hr IV T[facility]R [facility]; 5 MCG/KG/ MIN PRN Reason: Protocol Stop: 09/20/17 21:49 Last Admin: 07/25/17 12:14 Dose: 15 mcg/kg/min, 5.47 mls/hr Levofloxacin (Levaquin Pb) 250 mg in 50 mls @ 50 mls/hr IV Q48HR [facility] Stop: 09/22/17 04:59 Last Admin: 07/24/17 05:51 Dose: 50 mls/hr Meropenem 500 mg/ Sodium (Chloride) 50 mls @ 100 mls/hr IV Q12H [facility] Stop: 09/21/17 03:26 Last Admin: 07/25/17 06:55 Dose: 100 mls/hr Norepinephrine Bitartrate 4 mg (/ Dextrose) 254 mls @ 30.48 mls/hr IV TITR PRN ; Protocol; 8 MCG/MIN PRN Reason: BP MAINTENANCE (PER PROTOCOL) Stop: 09/21/17 14:59 Ferric Sodium Gluconate Complex 125 mg/ Sodium Chloride 110 mls @ 100 mls/hr IV Q24HR [facility] Stop: 07/31/17 13:05 Last Admin: 07/24/17 14:08 Dose: 100 mls/hr Multivitamins/Minerals 5 ml/Dextrose/ Amino Acids/Electrolytes 1,005 mls @ 42 mls/hr IV .[id number] [facility] Stop: 09/23/17 15:59 Potassium Chloride/Dextrose/Sod Cl (D5-0.9ns W/Kcl 20meq) 1,000 mls @ 75 mls/ hr IV .[id number] [facility] Stop: 09/23/17 13:21 Magnesium Sulfate (Magnesium Sulfate Premix) 2 gm in 50 mls @ 25 mls/hr IV X1 ONE Stop: 07/25/17 15:22 Miscellaneous (Vancomycin Iv Per Pharmacy) 1 [facility] PRN [facility] Stop: 09/21/17 09:44 Miscellaneous (Probiotic Screen) 1 [facility] PRN PRN PRN Reason: PROTOCOL Stop: 09/21/17 17:51 Miscellaneous (Tpn Per Pharmacy) 1 [facility] PRN PRN PRN Reason: PROTOCOL Stop: 09/22/17 18:45 Oseltamivir Phosphate (Tamiflu) 30 mg PO DAILY [facility] Stop: 09/21/17 14:14 General: Alert, No acute distress, Other (sedated) HEENT: Atraumatic, Mucous membr. moist/pink, Other (intubated) Neck: Supple, +2 carotid pulse wo bruit, Other (right neck central line) Cardiovascular: Normal S1, Normal S2, Other (tachycardia) Lungs: Other (rales bilaterally, right chest subclavian tracey, right chest tube) Abdomen: Bowel sounds, Soft, no Tender, no Distended Extremities: Cyanosis (bilateral hand digits ischemic changes), Edema Psych/Mental Status: Other (sedated) - Procedures Procedures: Procedures Procedure Code Date BLOOD TRANSFUSION SERVICE 76106 07/23/17 DRAINAGE OF R PLEURAL CAV WITH DRAIN DEV, OPEN APPROACH [id number] 07/23/17 INSERT CATH PLEURA W/O IMAGE 72205 07/23/17 INSERT EMERGENCY AIRWAY 07092 07/23/17 INSERT INFUSION DEV IN R INT JUGULAR VEIN, PERC [id number] 07/23/17 INSERT TUNNELED CV CATH 29453 07/23/17 INSERTION OF ENDOTRACHEAL AIRWAY INTO TRACHEA, VIA OPENING [id number] 07/23/17 RESPIRATORY VENTILATION, 24-96 CONSECUTIVE HOURS [id number] 07/23/17 TRANSFUSE NONAUT FROZEN PLASMA IN PERIPH VEIN, PERC 36189S9 07/23/17 TRANSFUSE NONAUT RED BLOOD CELLS IN PERIPH VEIN, PERC 37198B8 07/23/17 VENT MGMT INPAT INIT DAY 07/23/17 VENT MGMT INPAT SUBQ DAY 07/23/17 Assessment/Plan - Problem List Patient Problems: All Active Problems DYSPNEA WITH BODY ACHES AND NUMBNESS (Acute) - Assessment Assessment: HERMES on HD Acute resp failure Right PTX B/L PNA DIC Ecchymosis - Plan Plan: Lab - Result Diagrams 07/25/17 04:35 07/25/17 04:35 Current Medications Chlorhexidine Gluconate (Peridex) 15 ml MM 0800,1999 [facility] Stop: 09/22/17 07:59 Last Admin: 07/25/17 08:25 Dose: 15 ml Dexamethasone Sodium Phosphate (Decadron) 40 mg IVP DAILY [facility] Stop: 09/23/17 11:59 Last Admin: 07/25/17 12:11 Dose: 40 mg Diltiazem HCl (Cardizem) 20 mg IVP Q4H PRN PRN Reason: A-FIB Stop: 09/22/17 22:46 Last Admin: 07/24/17 23:19 Dose: 20 mg Propofol (Diprivan) 1,000 mg in 100 mls @ 1.823 mls/hr IV TITR [facility]; 5 MCG/KG/ MIN PRN Reason: Protocol Stop: 09/20/17 21:49 Last Admin: 07/25/17 12:14 Dose: 15 mcg/kg/min, 5.47 mls/hr Levofloxacin (Levaquin Pb) 250 mg in 50 mls @ 50 mls/hr IV Q48HR [facility] Stop: 09/22/17 04:59 Last Admin: 07/24/17 05:51 Dose: 50 mls/hr Meropenem 500 mg/ Sodium (Chloride) 50 mls @ 100 mls/hr IV Q12H [facility] Stop: 09/21/17 03:26 Last Admin: 07/25/17 06:55 Dose: 100 mls/hr Norepinephrine Bitartrate 4 mg (/ Dextrose) 254 mls @ 30.48 mls/hr IV TITR PRN ; Protocol; 8 MCG/MIN PRN Reason: BP MAINTENANCE (PER PROTOCOL) Stop: 09/21/17 14:59 Ferric Sodium Gluconate Complex 125 mg/ Sodium Chloride 110 mls @ 100 mls/hr IV Q24HR [facility] Stop: 07/31/17 13:05 Last Admin: 07/24/17 14:08 Dose: 100 mls/hr Multivitamins/Minerals 5 ml/Dextrose/ Amino Acids/Electrolytes 1,005 mls @ 42 mls/hr IV .[id number] [facility] Stop: 09/23/17 15:59 Potassium Chloride/Dextrose/Sod Cl (D5-0.9ns W/Kcl 20meq) 1,000 mls @ 75 mls/ hr IV .[id number] [facility] Stop: 09/23/17 13:21 Magnesium Sulfate (Magnesium Sulfate Premix) 2 gm in 50 mls @ 25 mls/hr IV X1 ONE Stop: 07/25/17 15:22 Miscellaneous (Vancomycin Iv Per Pharmacy) 1 [facility] PRN [facility] Stop: 09/21/17 09:44 Miscellaneous (Probiotic Screen) 1 [facility] PRN PRN PRN Reason: PROTOCOL Stop: 09/21/17 17:51 Miscellaneous (Tpn Per Pharmacy) 1 [facility] PRN PRN PRN Reason: PROTOCOL Stop: 09/22/17 18:45 Oseltamivir Phosphate (Tamiflu) 30 mg PO DAILY [facility] Stop: 09/21/17 14:14 Lab - Result Diagrams 07/25/17 04:35 07/25/17 04:35 Pt. was dialyzed today & josé miguel 2.5L was UF add Kcl to IVF replace Mg f/u electrolytes,cbc, cxr discussed w/ family @ bedside Nutritional Asmnt/Malnutr-PDOC - Dietary Evaluation Malnutrition Findings (Please click <Entered> for more info): Nutritional Asmnt/Malnutrition Start: 07/23/17 13: 56 Text: Status: Complete Freq: Document 07/23/17 13:57 LCHENG (Rec: 07/23/17 14:14 LCHENG [email or web address]) Nutritional Asmnt/Malnutrition Patient General Information Nutritional Screening High Risk Diagnosis acute respiratory failure, PNA , sepsis Pertinent Medical Hx/Surgical Hx HTN, Subjective Information Pt seen in ICU busy with doctor and nurse. Per notes, pt was intubated, NPO status. Per MD notes 1/2, may initiate HD waiting final desicion. Current Diet Order/ Nutrition Support NPO Pertinent Medications Calcium gluconate, Levaquin, sodium bicarbonate, nacl 0.9%, propofol Pertinent Labs 1/2 Na 132, K 3.9, Cl 88, BUN 59, Cr 5.4, Glucose 90, Calcium 5.8, Phos 6.8, Mg 1.5, AST 154, ALT 51, Alb 2.1 Nutritional Hx/Data Height 1.52 m Height (Calculated Centimeters) 152.4 Current Weight (lbs) 60.781 kg Weight (Calculated Kilograms) 60.8 Weight (Calculated Grams) 36515.4 [place] Body Weight 100 % [place] Body Weight 134 Body Mass Index (BMI) 26.2 Weight Status Overweight GI Symptoms GI Symptoms None Current %PO Negligible < 25% Estimated Nutritional Goals BEE in Kcals: Using Current wt Calories/Kcals/Kg 30-35 Kcals Calculated 7537-9783 Protein: Using Current wt Protein g/k.2-1.4 monior renal labs Protein Calculated 73-85 Fluid: ml 5847-7419 or per MD d/t acute renal failure Nutritional Problem 1. Problem Problem altered nutrition related lab values Etiology imbalanced electrolytes, acute renal failure Signs/Symptoms: Na 132, K 3.9, Cl 88, BUN 59, Cr 5.4, Calcium 5.8, Phos 6.8, Mg 1.5 Intervention/Recommendation Comments 1. Monitor NPO status 2. If enteral feeding needed, recomend to start Novasource Renal 20ml/hr continuous, increase to goal rate of 40ml/ hr continuous as tolerated. This will provide 1920kcal, 87g protein and 699ml water, meeting 100% of calorie needs and 102% of protein needs, 3. F/U as high risk in 2 days, 1/4 Expected Outcomes/Goals Expected Outcomes/Goals 1. Pt to meet at least 75% of nutritional needs in 2-3 days 2. Wt stability, skin to remain intact, labs to improve .
--- NOTE | 2017-07-25 13:45 | GI Progress Note ---
Subjective - Review of Systems Subjective: INTUBATED SEDATED Objective - Results Result Diagrams: 07/25/17 04:35 07/25/17 04:35 Recent Labs: Laboratory Last Values WBC 18.2 Th/cmm (4.8-10.8) H 07/25/17 04:35 RBC 3.15 Mil/cmm (3.80-5.10) L 07/25/17 04:35 Hgb 8.7 gm/dL (12-16) L 07/25/17 04:35 Hct 24.2 % (41.0-60) L 07/25/17 04:35 MCV 76.8 fl (81-100) L 07/25/17 04:35 MCH 27.5 pg (27.0-31.0) 07/25/17 04:35 MCHC Differential 35.9 pg (28.0-36.0) 07/25/17 04:35 RDW 15.9 % (11.5-20.0) 07/25/17 04:35 Plt Count 10 Th/cmm (150-400) L* 07/25/17 04:35 MPV 8.5 fl 07/25/17 04:35 Band Neutrophils % 16 % (0-10) H 07/25/17 04:35 Neutrophils (Manual) 75 % (40-80) 07/25/17 04:35 Lymphocytes 6 % (20-50) L 07/25/17 04:35 Monocytes 3 % (2-10) 07/25/17 04:35 Eosinophils 0 % (0-5) 07/23/17 14:40 Basophils 0 % (0-3) 07/23/17 14:40 Hypochromia 1+ 07/23/17 21:47 Platelet Estimate DECREASED PLATELETS (NORMAL) 07/25/17 04:35 Platelet Morphology NORMAL (NORMAL) 07/23/17 14:40 Polychromasia 1+ 07/23/17 21:47 Anisocytosis 1+ 07/22/17 10:55 Microcytosis 3+ 07/23/17 14:40 Tear Drop Cells 2+ 07/23/17 21:47 Stomatocytes 1+ 07/23/17 21:47 RBC Morph Micro Appear ABNORMAL (NORMAL) 07/23/17 14:40 ESR 20 mm/hr (0-30) 01/02/18 Unknown Plt Count 10 Th/cmm (150-750) L* 07/25/17 10:50 PT 11.8 SECONDS (9.5-11.5) H 07/25/17 10:50 INR 1.12 (0.5-1.4) 07/25/17 10:50 PTT (Actin FS) 31.2 SECONDS (26.0-38.0) 07/25/17 10:50 Fibrinogen 204.0 mg/dL (200.0-400.0) 07/25/17 10:50 D-Dimer > 5000 ng/mL (100-400) H 07/25/17 10:50 Specimen Source Arterial 07/25/17 09:14 Sample Site A-LINE 07/25/17 09:14 pH 7.55 (7.35-7.45) H 07/25/17 09:14 pCO2 39.0 mmHg (35.0-45.0) 07/25/17 09:14 pO2 145.0 mmHg (80.0-100.0) H 07/25/17 09:14 HCO3 33.4 mEq/L (20.0-26.0) H 07/25/17 09:14 Base Excess 10.8 mEq/L (-3.0-3.0) H 07/25/17 09:14 O2 Saturation 99.0 % (92.0-100.0) 07/25/17 09:14 Roland Test NA 07/25/17 09:14 Vent Rate 14 07/25/17 09:14 Inspired O2 40 07/25/17 09:14 Tidal Volume NA 07/25/17 09:14 PEEP NA 07/25/17 09:14 Pressure (ins/psv/peep) NA 07/25/17 09:14 Critical Value LZHANG 07/25/17 09:14 Sodium 135 mEq/L (136-145) L 07/25/17 04:35 Potassium 3.3 mEq/L (3.5-5.1) L 07/25/17 04:35 Chloride 90 mEq/L (98-107) L 07/25/17 04:35 Carbon Dioxide 31.4 mEq/L (21.0-31.0) H 07/25/17 04:35 Anion Gap 16.9 (7.0-16.0) H 07/25/17 04:35 BUN 54 mg/dL (7-25) H 07/25/17 04:35 Creatinine 5.5 mg/dL (0.6-1.2) H* 07/25/17 04:35 Est GFR ( Amer) 11.3 ml/min (>90) 07/25/17 04:35 Est GFR (Non-Af Amer) 9.3 ml/min 07/25/17 04:35 BUN/Creatinine Ratio 9.8 07/25/17 04:35 Glucose 120 mg/dL (70-105) H 07/25/17 04:35 Whole Bld Lactic Acid 6.09 mmol/L (0.60-1.99) H* 07/24/17 11:30 Uric Acid 7.7 mg/dL (2.3-6.6) H 07/23/17 Unknown Calcium 6.7 mg/dL (8.6-10.3) L 07/25/17 04:35 Phosphorus 4.9 mg/dL (2.5-5.0) 07/24/17 15:00 Magnesium 1.7 mg/dL (1.9-2.7) L 07/25/17 10:50 Iron 39 ug/dL (27-159) 07/22/17 10:55 TIBC 376 ug/dL (250-450) 07/22/17 10:55 Iron Saturation 10 % (15-55) L 07/22/17 10:55 Unsaturated IBC 337 ug/dL (131-425) 07/22/17 10:55 Ferritin 3523 ng/mL (15-150) H 07/23/17 03:48 Total Bilirubin 8.1 mg/dL (0.3-1.0) H 07/25/17 04:35 Direct Bilirubin 4.94 mg/dL (0.0-0.2) H 07/25/17 04:35 GGTP 40 IU/L (0-60) 07/23/17 03:48 AST 581 U/L (13-39) H 07/25/17 04:35 ALT 228 U/L (7-52) H 07/25/17 04:35 Alkaline Phosphatase 85 U/L (34-104) 07/25/17 04:35 Creatine Kinase 2864 U/L (30-223) H 07/23/17 Unknown CK-MB (CK-2) 95.3 ng/mL (0.6-6.3) H 07/23/17 Unknown Troponin I 0.07 ng/mL (0.01-0.05) H* 07/22/17 10:55 C-Reactive Protein 34.1 mg/dL (0.0-0.9) H 07/24/17 09:24 B-Natriuretic Peptide 511.0 pg/mL (5.0-100.0) H 07/22/17 10:55 Total Protein 4.3 gm/dL (6.0-8.3) L 07/25/17 04:35 Albumin 2.8 gm/dL (3.7-5.3) L 07/25/17 04:35 Globulin 1.5 gm/dL 07/25/17 04:35 Albumin/Globulin Ratio 1.9 (1.0-1.8) H 07/25/17 04:35 Vbmcz-9-Umjprkarjqg 224 mg/dL (90-200) H 07/23/17 03:48 Ceruloplasmin 34.4 mg/dL (19.0-39.0) 07/23/17 03:48 Triglycerides 536 mg/dL (<150) H 07/22/17 10:55 Cholesterol 129 mg/dL (<200) 07/22/17 10:55 LDL Cholesterol Direct 23 mg/dL (75-193) L 07/22/17 10:55 HDL Cholesterol 15 mg/dL (23-92) L 07/22/17 10:55 Amylase 276 U/L (29-103) H 07/22/17 19:04 Lipase 19 U/L (11-82) 07/22/17 19:04 TSH 0.34 uIU/ml (0.34-5.60) 07/23/17 21:47 Serum , Qual NEGATIVE (NEGATIVE) 07/22/17 10:55 PTH Intact 434 pg/mL (15-65) H 07/23/17 21:47 Urine Source [place] 07/23/17 03:48 Urine Color ORANGE 07/23/17 03:48 Urine Clarity HAZY (CLEAR) 07/23/17 03:48 Urine pH 7.0 (4.6 - 8.0) 07/23/17 03:48 Ur Specific [place] 1.010 (1.005-1.030) 07/23/17 03:48 Urine Protein 100 mg/dL (NEGATIVE) H 07/23/17 03:48 Urine Glucose (UA) NEGATIVE mg/dL (NEGATIVE) 07/23/17 03:48 Urine Ketones NEGATIVE mg/dL (NEGATIVE) 07/23/17 03:48 Urine Blood LARGE (NEGATIVE) H 07/23/17 03:48 Urine Nitrate NEGATIVE (NEGATIVE) 07/23/17 03:48 Urine Bilirubin NEGATIVE (NEGATIVE) 07/23/17 03:48 Urine Urobilinogen 0.2 E.U./dL (0.2 - 1.0) 07/23/17 03:48 Ur Leukocyte Esterase NEGATIVE (NEGATIVE) 07/23/17 03:48 Urine RBC 50-100 /hpf (0-5) H 07/23/17 03:48 Urine WBC 2-5 /hpf (0-5) 07/23/17 03:48 Ur Epithelial Cells MODERATE /lpf (FEW) 07/23/17 03:48 Urine Bacteria FEW /hpf (NONE SEEN) 07/23/17 03:48 Stool Occult Blood NEGATIVE (NEGATIVE) 07/23/17 03:15 Stool Leukocyte NO WBC SEEN 07/23/17 03:15 Random Vancomycin 13.0 ug/mL (5.0-40.0) 07/24/17 09:24 Salicylates < 25.0 mg/L (30.0-100.0) L 07/22/17 10:55 Urine Opiates Screen NEGATIVE (NEGATIVE) 07/23/17 03:45 Urine Methadone Screen NEGATIVE (NEGATIVE) 07/23/17 03:45 Acetaminophen < 10.0 ug/mL (10.0-30.0) L 07/22/17 10:55 Ur Barbiturates Screen NEGATIVE (NEGATIVE) 07/23/17 03:45 Ur Tricyclics Screen NEGATIVE (NEGATIVE) 07/23/17 03:45 Ur Phencyclidine Scrn NEGATIVE (NEGATIVE) 07/23/17 03:45 Amphetamines Screen NEGATIVE (NEGATIVE) 07/23/17 03:45 U Methamphetamines Scrn NEGATIVE (NEGATIVE) 07/23/17 03:45 U Benzodiazepines Scrn NEGATIVE (NEGATIVE) 07/23/17 03:45 U Cocaine Metab Screen NEGATIVE (NEGATIVE) 07/23/17 03:45 U Cannabinoids Screen NEGATIVE (NEGATIVE) 07/23/17 03:45 DAQUAN Screen Negative 07/23/17 03:48 Anti-Mitochondrial Ab 5.2 Units (0.0-20.0) 07/23/17 03:48 Smooth Muscle IgG Ab 6 Units (0-19) 07/23/17 03:48 Hepatitis A IgM Ab Negative (Negative) 07/23/17 03:48 Hep Bs Antigen Negative (Negative) 07/23/17 03:48 Hep B Core IgM Ab Negative (Negative) 07/23/17 03:48 Hepatitis C Antibody 0.2 s/co ratio (0.0-0.9) 07/23/17 03:48 HIV 1&2 Antibody Screen NEGATIVE (NEG) 07/23/17 03:48 Influenza A (Rapid) NEG FOR INF A 07/22/17 19:20 Influenza B (Rapid) NEG FOR INF B 07/22/17 19:20 Blood Type O POSITIVE 07/24/17 12:43 Antibody Screen NEGATIVE 07/24/17 12:43 Crossmatch See Detail 07/23/17 14:40 - Physical Exam Vitals and I&O: Vital Signs Temp 98.1 F 07/25/17 10:00 Pulse 95 07/25/17 11:49 Resp 22 07/25/17 10:19 BP 117/63 07/25/17 10:30 Pulse Ox 100 07/25/17 11:49 Intake & Output 07/24/17 07/25/17 07/25/17 18:59 06:59 18:59 Intake Total 577.252 9269 30.906 Output Total 1600 200 Balance 661.180 0344 -169.094 Weight (lbs) 60.781 kg 60.781 kg Intake: Intake, IV Amount 784.769 7128 30.906 Albumin 25% 25gm/100mL 25 100 gm In 100 ml @ 50 mls/hr IV PRN PRN Rx#:[id number] Calcium Gluconate 1 gm In 110 Sodium Chloride 0.9% 100 ml @ 100 mls/hr IV Q8H [facility] Rx#:[id number] D5-0.9%Ns 1,000 ml @ 75 1000 mls/hr IV .[id number] [facility] Rx #:[id number] Meropenem 500 mg In 50 50 Sodium Chloride 0.9% 50 ml @ 100 mls/hr IV Q12H [facility] Rx#:[id number] Propofol 1,000 mg In 100 49.453 100 30.906 ml @ 5 MCG/KG/MIN 1.823 mls/hr IV TITR [facility] Rx#: [id number] Oral 0 Blood Product 1450 Albumin 100 Output: Chest Tube Drainage 100 Right Mid-Axillary Chest 100 Urine 100 100 Hemodialysis 1500 Other: # Bowel Movements 2 0 Active Medications: Current Medications Chlorhexidine Gluconate (Peridex) 15 ml MM 08,1999 [facility] Stop: 09/22/17 07:59 Last Admin: 07/25/17 08:25 Dose: 15 ml Dexamethasone Sodium Phosphate (Decadron) 40 mg IVP DAILY [facility] Stop: 09/23/17 11:59 Last Admin: 07/25/17 12:11 Dose: 40 mg Diltiazem HCl (Cardizem) 20 mg IVP Q4H PRN PRN Reason: A-FIB Stop: 09/22/17 22:46 Last Admin: 07/24/17 23:19 Dose: 20 mg Propofol (Diprivan) 1,000 mg in 100 mls @ 1.823 mls/hr IV TITR [facility]; 5 MCG/KG/ MIN PRN Reason: Protocol Stop: 09/20/17 21:49 Last Admin: 07/25/17 12:14 Dose: 15 mcg/kg/min, 5.47 mls/hr Levofloxacin (Levaquin Pb) 250 mg in 50 mls @ 50 mls/hr IV Q48HR [facility] Stop: 09/22/17 04:59 Last Admin: 07/24/17 05:51 Dose: 50 mls/hr Meropenem 500 mg/ Sodium (Chloride) 50 mls @ 100 mls/hr IV Q12H [facility] Stop: 09/21/17 03:26 Last Admin: 07/25/17 06:55 Dose: 100 mls/hr Norepinephrine Bitartrate 4 mg (/ Dextrose) 254 mls @ 30.48 mls/hr IV TITR PRN ; Protocol; 8 MCG/MIN PRN Reason: BP MAINTENANCE (PER PROTOCOL) Stop: 09/21/17 14:59 Ferric Sodium Gluconate Complex 125 mg/ Sodium Chloride 110 mls @ 100 mls/hr IV Q24HR [facility] Stop: 07/31/17 13:05 Last Admin: 07/24/17 14:08 Dose: 100 mls/hr Multivitamins/Minerals 5 ml/Dextrose/ Amino Acids/Electrolytes 1,005 mls @ 42 mls/hr IV .[id number] [facility] Stop: 09/23/17 15:59 Potassium Chloride/Dextrose/Sod Cl (D5-0.9ns W/Kcl 20meq) 1,000 mls @ 75 mls/ hr IV .[id number] [facility] Stop: 09/23/17 13:21 Magnesium Sulfate (Magnesium Sulfate Premix) 2 gm in 50 mls @ 25 mls/hr IV X1 ONE Stop: 07/25/17 15:22 Miscellaneous (Vancomycin Iv Per Pharmacy) 1 [facility] PRN [facility] Stop: 09/21/17 09:44 Miscellaneous (Probiotic Screen) 1 [facility] PRN PRN PRN Reason: PROTOCOL Stop: 09/21/17 17:51 Miscellaneous (Tpn Per Pharmacy) 1 [facility] PRN PRN PRN Reason: PROTOCOL Stop: 09/22/17 18:45 Oseltamivir Phosphate (Tamiflu) 30 mg PO DAILY [facility] Stop: 09/21/17 14:14 General: Alert, No acute distress, Other (sedated) HEENT: Atraumatic, Mucous membr. moist/pink, Other (intubated) Neck: Supple, +2 carotid pulse wo bruit, Other (right neck central line) Cardiovascular: Normal S1, Normal S2, Other (tachycardia) Lungs: Other (rales bilaterally, right chest subclavian tracey, right chest tube) Abdomen: Bowel sounds, Soft, no Tender, no Distended Extremities: Cyanosis (bilateral hand digits ischemic changes), Edema Skin: Other (echymosis bilateral thigh area and lower leg area) Psych/Mental Status: Other (sedated) - Procedures Procedures: Procedures Procedure Code Date BLOOD TRANSFUSION SERVICE 39200 07/23/17 DRAINAGE OF R PLEURAL CAV WITH DRAIN DEV, OPEN APPROACH [id number] 07/23/17 INSERT CATH PLEURA W/O IMAGE [id number] 07/23/17 INSERT EMERGENCY AIRWAY [id number] 07/23/17 INSERT INFUSION DEV IN R INT JUGULAR VEIN, PERC [id number] 07/23/17 INSERT TUNNELED CV CATH [id number] 07/23/17 INSERTION OF ENDOTRACHEAL AIRWAY INTO TRACHEA, VIA OPENING [id number] 07/23/17 RESPIRATORY VENTILATION, 24-96 CONSECUTIVE HOURS [id number] 07/23/17 TRANSFUSE NONAUT FROZEN PLASMA IN PERIPH VEIN, PERC [id number] 07/23/17 TRANSFUSE NONAUT RED BLOOD CELLS IN PERIPH VEIN, PERC [id number] 07/23/17 VENT MGMT INPAT INIT DAY 07/23/17 VENT MGMT INPAT SUBQ DAY 07/23/17 Assessment/Plan - Problem List Patient Problems: All Active Problems DYSPNEA WITH BODY ACHES AND NUMBNESS (Acute) - Assessment Assessment: 36 YO FEMALE WITH SEPTIC SHOCK DUE TO PNA LFTS ARE ELEVATED LIKELY DUE TO SEVERE SEPSIS CT SHOWED NO ABNORMALITIES WITH REGARD TO THE LIVER OR GB ABNORMAL HIDA HAV/HBV/HCV NEG AMA, SMA, DAQUAN ARE NORMAL CERULOPLASMIN AND A1AT LEVELS ARE NOT LOW NO SIGN OF IRON OVERLOAD 1.WILL NEED MRCP WHEN STABLE 2.FOLLOW LFTS 3.CONT SUPP CARE 4.PT SHOULD HAVE RHEUM EVAL
--- NOTE | 2017-07-25 14:16 | Diagnostic Imaging Report ---
CT scan of the chest without intravenous contrast HISTORY: Pneumothorax Total DLP equals 318 CTDI equals 9.9 Axial sections were obtained from a level above the clavicles down to level below the diaphragm. Compared with a prior exam of July 22, 2017, there has developed a large (greater than 80%) right pneumothorax. Large cystic foci noted within the right lower lobe. Additional smaller cystic foci seen within the left lower lobe. Extensive parenchymal density noted within the right and left lower lobes and perihilar regions with air bronchograms consistent with consolidation and/or atelectasis. Small left pleural effusion. The mediastinum is slightly shifted to the left. Endotracheal tube tip is approximately 4.5 cm above the jace. A nasogastric tube extends into the stomach. IMPRESSION: 1. Large (greater than 80%) right pneumothorax. Chest tube tip seen within the right upper hemithorax. 2. Large cystic changes within the right lower lobe and to a lesser degree left lower lobe areas. As previously noted, exact etiology uncertain. Findings may be congenital and/or associated with pneumatoceles or inflammatory change. 3. Findings consistent with consolidation and/or atelectasis within the lower lobes and perihilar regions. 4. Tube placement as noted above.
--- NOTE | 2017-07-25 14:19 | Diagnostic Imaging Report ---
Portable chest x-ray HISTORY: Pneumothorax, oral gastric tube placement Compared with the prior exam performed earlier in the day (0818 hours), an oral gastric tube extends into the region of the stomach. There is a right pneumothorax that appears more conspicuous and pronounced than on the prior study. Evaluation limited due to underlying previously described cystic pulmonary changes. A CT scan may provide additional detail. IMPRESSION: 1. Oral gastric tube placement extending into the stomach. 2. Somewhat more conspicuous right pneumothorax. Evaluation limited due to underlying cystic changes. A CT scan may provide additional assessment and detail.
[2017-07-25 15:10] LABS: INR 1.17 (0.5-1.4); PROTHROMBIN TIME (TEST) 12.3 SECONDS (9.5-11.5)
[2017-07-25] MEDS ORDERED: MULTIVITAMIN IV SCH (16:00)
[2017-07-25] MEDS ORDERED: Amino Acids 3% / Electrolytes 1,000 ML IV SCH (16:00)
[2017-07-25] MEDS ORDERED: DEXTROSE IV SCH (16:00)
[2017-07-25] MEDS ORDERED: AMINO ACIDS 8.5% IV SCH (16:00)
[2017-07-25] MEDS ORDERED: INSULIN ASPART SLIDING SCALE 100 UNITS/ML UNIT SUBQ SCH (18:00)
--- NOTE | 2017-07-25 21:53 | General Progress Note ---
Subjective - Review of Systems Service Date: 07/25/17 Subjective: Patient seen and examined Boy friend was at the bedside patient was sedated no new concern reported Objective - Results Result Diagrams: 07/25/17 04:35 07/25/17 04:35 Recent Labs: Laboratory Last Values WBC 18.2 Th/cmm (4.8-10.8) H 07/25/17 04:35 RBC 3.15 Mil/cmm (3.80-5.10) L 07/25/17 04:35 Hgb 8.7 gm/dL (12-16) L 07/25/17 04:35 Hct 24.2 % (41.0-60) L 07/25/17 04:35 MCV 76.8 fl (81-100) L 07/25/17 04:35 MCH 27.5 pg (27.0-31.0) 07/25/17 04:35 MCHC Differential 35.9 pg (28.0-36.0) 07/25/17 04:35 RDW 15.9 % (11.5-20.0) 07/25/17 04:35 Plt Count 10 Th/cmm (150-400) L* 07/25/17 04:35 MPV 8.5 fl 07/25/17 04:35 Band Neutrophils % 16 % (0-10) H 07/25/17 04:35 Neutrophils (Manual) 75 % (40-80) 07/25/17 04:35 Lymphocytes 6 % (20-50) L 07/25/17 04:35 Monocytes 3 % (2-10) 07/25/17 04:35 Eosinophils 0 % (0-5) 07/23/17 14:40 Basophils 0 % (0-3) 07/23/17 14:40 Hypochromia 1+ 07/23/17 21:47 Platelet Estimate DECREASED PLATELETS (NORMAL) 07/25/17 04:35 Platelet Morphology NORMAL (NORMAL) 07/23/17 14:40 Polychromasia 1+ 07/23/17 21:47 Anisocytosis 1+ 07/22/17 10:55 Microcytosis 3+ 07/23/17 14:40 Tear Drop Cells 2+ 07/23/17 21:47 Stomatocytes 1+ 07/23/17 21:47 RBC Morph Micro Appear ABNORMAL (NORMAL) 07/23/17 14:40 ESR 20 mm/hr (0-30) 07/23/17 Unknown Plt Count 10 Th/cmm (150-750) L* 07/25/17 10:50 PT 12.3 SECONDS (9.5-11.5) H 07/25/17 14:30 INR 1.17 (0.5-1.4) 07/25/17 14:30 PTT (Actin FS) 31.2 SECONDS (26.0-38.0) 07/25/17 10:50 Fibrinogen 204.0 mg/dL (200.0-400.0) 07/25/17 10:50 D-Dimer > 5000 ng/mL (100-400) H 07/25/17 10:50 Specimen Source Arterial 07/25/17 09:14 Sample Site A-LINE 07/25/17 09:14 pH 7.55 (7.35-7.45) H 07/25/17 09:14 pCO2 39.0 mmHg (35.0-45.0) 07/25/17 09:14 pO2 145.0 mmHg (80.0-100.0) H 07/25/17 09:14 HCO3 33.4 mEq/L (20.0-26.0) H 07/25/17 09:14 Base Excess 10.8 mEq/L (-3.0-3.0) H 07/25/17 09:14 O2 Saturation 99.0 % (92.0-100.0) 07/25/17 09:14 Roland Test NA 07/25/17 09:14 Vent Rate 14 07/25/17 09:14 Inspired O2 40 07/25/17 09:14 Tidal Volume NA 07/25/17 09:14 PEEP NA 07/25/17 09:14 Pressure (ins/psv/peep) NA 07/25/17 09:14 Critical Value LZHANG 07/25/17 09:14 Sodium 135 mEq/L (136-145) L 07/25/17 04:35 Potassium 3.3 mEq/L (3.5-5.1) L 07/25/17 04:35 Chloride 90 mEq/L (98-107) L 07/25/17 04:35 Carbon Dioxide 31.4 mEq/L (21.0-31.0) H 07/25/17 04:35 Anion Gap 16.9 (7.0-16.0) H 07/25/17 04:35 BUN 54 mg/dL (7-25) H 07/25/17 04:35 Creatinine 5.5 mg/dL (0.6-1.2) H* 07/25/17 04:35 Est GFR ( Amer) 11.3 ml/min (>90) 07/25/17 04:35 Est GFR (Non-Af Amer) 9.3 ml/min 07/25/17 04:35 BUN/Creatinine Ratio 9.8 07/25/17 04:35 Glucose 120 mg/dL (70-105) H 07/25/17 04:35 POC Glucose 159 MG/DL (70 - 105) H 07/25/17 19:35 Whole Bld Lactic Acid 6.09 mmol/L (0.60-1.99) H* 07/24/17 11:30 Uric Acid 7.7 mg/dL (2.3-6.6) H 07/23/17 Unknown Calcium 6.7 mg/dL (8.6-10.3) L 07/25/17 04:35 Phosphorus 2.1 mg/dL (2.5-5.0) L 07/25/17 15:00 Magnesium 1.7 mg/dL (1.9-2.7) L 07/25/17 10:50 Iron 39 ug/dL (27-159) 07/22/17 10:55 TIBC 376 ug/dL (250-450) 07/22/17 10:55 Iron Saturation 10 % (15-55) L 07/22/17 10:55 Unsaturated IBC 337 ug/dL (131-425) 07/22/17 10:55 Ferritin 3523 ng/mL (15-150) H 07/23/17 03:48 Total Bilirubin 8.1 mg/dL (0.3-1.0) H 07/25/17 04:35 Direct Bilirubin 4.94 mg/dL (0.0-0.2) H 07/25/17 04:35 GGTP 40 IU/L (0-60) 07/23/17 03:48 AST 581 U/L (13-39) H 07/25/17 04:35 ALT 228 U/L (7-52) H 07/25/17 04:35 Alkaline Phosphatase 85 U/L (34-104) 07/25/17 04:35 Creatine Kinase 2864 U/L (30-223) H 07/23/17 Unknown CK-MB (CK-2) 95.3 ng/mL (0.6-6.3) H 07/23/17 Unknown Troponin I 0.07 ng/mL (0.01-0.05) H* 07/22/17 10:55 C-Reactive Protein 34.1 mg/dL (0.0-0.9) H 07/24/17 09:24 B-Natriuretic Peptide 511.0 pg/mL (5.0-100.0) H 07/22/17 10:55 Total Protein 4.3 gm/dL (6.0-8.3) L 07/25/17 04:35 Albumin 2.8 gm/dL (3.7-5.3) L 07/25/17 04:35 Globulin 1.5 gm/dL 07/25/17 04:35 Albumin/Globulin Ratio 1.9 (1.0-1.8) H 07/25/17 04:35 [id number] 224 mg/dL (90-200) H 07/23/17 03:48 Ceruloplasmin 34.4 mg/dL (19.0-39.0) 07/23/17 03:48 Triglycerides 536 mg/dL (<150) H 07/22/17 10:55 Cholesterol 129 mg/dL (<200) 07/22/17 10:55 LDL Cholesterol Direct 23 mg/dL (75-193) L 07/22/17 10:55 HDL Cholesterol 15 mg/dL (23-92) L 07/22/17 10:55 Amylase 276 U/L (29-103) H 07/22/17 19:04 Lipase 19 U/L (11-82) 07/22/17 19:04 TSH 0.34 uIU/ml (0.34-5.60) 07/23/17 21:47 Serum , Qual NEGATIVE (NEGATIVE) 07/22/17 10:55 PTH Intact 434 pg/mL (15-65) H 07/23/17 21:47 Urine Source [place] 07/23/17 03:48 Urine Color ORANGE 07/23/17 03:48 Urine Clarity HAZY (CLEAR) 07/23/17 03:48 Urine pH 7.0 (4.6 - 8.0) 07/23/17 03:48 Ur Specific [place] 1.010 (1.005-1.030) 07/23/17 03:48 Urine Protein 100 mg/dL (NEGATIVE) H 07/23/17 03:48 Urine Glucose (UA) NEGATIVE mg/dL (NEGATIVE) 07/23/17 03:48 Urine Ketones NEGATIVE mg/dL (NEGATIVE) 07/23/17 03:48 Urine Blood LARGE (NEGATIVE) H 07/23/17 03:48 Urine Nitrate NEGATIVE (NEGATIVE) 07/23/17 03:48 Urine Bilirubin NEGATIVE (NEGATIVE) 07/23/17 03:48 Urine Urobilinogen 0.2 E.U./dL (0.2 - 1.0) 07/23/17 03:48 Ur Leukocyte Esterase NEGATIVE (NEGATIVE) 07/23/17 03:48 Urine RBC 50-100 /hpf (0-5) H 07/23/17 03:48 Urine WBC 2-5 /hpf (0-5) 07/23/17 03:48 Ur Epithelial Cells MODERATE /lpf (FEW) 07/23/17 03:48 Urine Bacteria FEW /hpf (NONE SEEN) 07/23/17 03:48 Stool Occult Blood NEGATIVE (NEGATIVE) 07/23/17 03:15 Stool Leukocyte NO WBC SEEN 07/23/17 03:15 Random Vancomycin 13.0 ug/mL (5.0-40.0) 07/24/17 09:24 Salicylates < 25.0 mg/L (30.0-100.0) L 07/22/17 10:55 Urine Opiates Screen NEGATIVE (NEGATIVE) 07/23/17 03:45 Urine Methadone Screen NEGATIVE (NEGATIVE) 07/23/17 03:45 Acetaminophen < 10.0 ug/mL (10.0-30.0) L 07/22/17 10:55 Ur Barbiturates Screen NEGATIVE (NEGATIVE) 07/23/17 03:45 Ur Tricyclics Screen NEGATIVE (NEGATIVE) 07/23/17 03:45 Ur Phencyclidine Scrn NEGATIVE (NEGATIVE) 07/23/17 03:45 Amphetamines Screen NEGATIVE (NEGATIVE) 07/23/17 03:45 U Methamphetamines Scrn NEGATIVE (NEGATIVE) 07/23/17 03:45 U Benzodiazepines Scrn NEGATIVE (NEGATIVE) 07/23/17 03:45 U Cocaine Metab Screen NEGATIVE (NEGATIVE) 07/23/17 03:45 U Cannabinoids Screen NEGATIVE (NEGATIVE) 07/23/17 03:45 DAQUAN Screen Negative 07/23/17 03:48 Anti-Mitochondrial Ab 5.2 Units (0.0-20.0) 07/23/17 03:48 Smooth Muscle IgG Ab 6 Units (0-19) 07/23/17 03:48 Hepatitis A IgM Ab Negative (Negative) 07/23/17 03:48 Hep Bs Antigen Negative (Negative) 07/23/17 03:48 Hep B Core IgM Ab Negative (Negative) 07/23/17 03:48 Hepatitis C Antibody 0.2 s/co ratio (0.0-0.9) 07/23/17 03:48 HIV 1&2 Antibody Screen NEGATIVE (NEG) 07/23/17 03:48 Influenza A (Rapid) NEG FOR INF A 07/22/17 19:20 Influenza B (Rapid) NEG FOR INF B 07/22/17 19:20 Blood Type O POSITIVE 07/24/17 12:43 Antibody Screen NEGATIVE 07/24/17 12:43 Crossmatch See Detail 07/23/17 14:40 - Physical Exam Vitals and I&O: Vital Signs Temp 99.8 F 07/25/17 20:00 Pulse 106 07/25/17 21:11 Resp 19 07/25/17 20:00 BP 136/82 07/25/17 20:45 Pulse Ox 100 07/25/17 21:11 Intake & Output 07/25/17 07/25/17 07/26/17 06:59 18:59 06:59 Intake Total 2800 80.906 40.934 Output Total 1600 200 Balance 1200 -119.094 40.934 Weight (lbs) 60.781 kg 60.781 kg Intake: Intake, IV Amount 1250 80.906 40.934 Albumin 25% 25gm/100mL 25 100 gm In 100 ml @ 50 mls/hr IV PRN PRN Rx#:[id number] D5-0.9%Ns 1,000 ml @ 75 1000 mls/hr IV .[id number] [facility] Rx #:[id number] Meropenem 500 mg In 50 50 Sodium Chloride 0.9% 50 ml @ 100 mls/hr IV Q12H [facility] Rx#:[id number] Propofol 1,000 mg In 100 100 30.906 40.934 ml @ 5 MCG/KG/MIN 1.823 mls/hr IV TITR [facility] Rx#: [id number] Oral 0 Blood Product 1450 Albumin 100 Output: Chest Tube Drainage 100 Right Mid-Axillary Chest 100 Urine 100 100 Hemodialysis 1500 Other: # Bowel Movements 2 0 Active Medications: Current Medications Chlorhexidine Gluconate (Peridex) 15 ml MM 0800,1999 [facility] Stop: 09/22/17 07:59 Last Admin: 07/25/17 19:51 Dose: 15 ml Dexamethasone Sodium Phosphate (Decadron) 40 mg IVP DAILY [facility] Stop: 09/23/17 11:59 Last Admin: 07/25/17 12:11 Dose: 40 mg Diltiazem HCl (Cardizem) 20 mg IVP Q4H PRN PRN Reason: A-FIB Stop: 09/22/17 22:46 Last Admin: 07/24/17 23:19 Dose: 20 mg Propofol (Diprivan) 1,000 mg in 100 mls @ 1.823 mls/hr IV TITR [facility]; 5 MCG/KG/ MIN PRN Reason: Protocol Stop: 09/20/17 21:49 Last Titration: 07/25/17 19:43 Dose: 10 mcg/kg/min, 3.647 mls/hr Levofloxacin (Levaquin Pb) 250 mg in 50 mls @ 50 mls/hr IV Q48HR [facility] Stop: 09/22/17 04:59 Last Admin: 07/24/17 05:51 Dose: 50 mls/hr Meropenem 500 mg/ Sodium (Chloride) 50 mls @ 100 mls/hr IV Q12H [facility] Stop: 09/21/17 03:26 Last Admin: 07/25/17 19:11 Dose: 100 mls/hr Norepinephrine Bitartrate 4 mg (/ Dextrose) 254 mls @ 30.48 mls/hr IV TITR PRN ; Protocol; 8 MCG/MIN PRN Reason: BP MAINTENANCE (PER PROTOCOL) Stop: 09/21/17 14:59 Ferric Sodium Gluconate Complex 125 mg/ Sodium Chloride 110 mls @ 100 mls/hr IV Q24HR [facility] Stop: 07/31/17 13:05 Last Admin: 07/25/17 13:00 Dose: 100 mls/hr Multivitamins/Minerals 5 ml/Dextrose/ Amino Acids/Electrolytes 1,005 mls @ 42 mls/hr IV .[id number] [facility] Stop: 09/23/17 15:59 Last Admin: 07/25/17 15:21 Dose: 42 mls/hr Potassium Chloride/Dextrose/Sod Cl (D5-0.9ns W/Kcl 20meq) 1,000 mls @ 75 mls/ hr IV .[id number] [facility] Stop: 09/23/17 13:21 Last Admin: 07/25/17 14:10 Dose: 75 mls/hr Insulin Aspart (Novolog Insulin Sliding Scale) 0 units SUBQ Q6HR [facility] PRN Reason: Protocol Stop: 09/23/17 17:59 Last Admin: 07/25/17 19:38 Dose: 2 units Miscellaneous (Vancomycin Iv Per Pharmacy) 1 [facility] PRN [facility] Stop: 09/21/17 09:44 Miscellaneous (Probiotic Screen) 1 [facility] PRN PRN PRN Reason: PROTOCOL Stop: 09/21/17 17:51 Miscellaneous (Tpn Per Pharmacy) 1 [facility] PRN PRN PRN Reason: PROTOCOL Stop: 09/22/17 18:45 Oseltamivir Phosphate (Tamiflu) 30 mg PO DAILY [facility] Stop: 09/21/17 14:14 Cardiovascular: Regular rate Lungs: Other (rales bilaterally) Abdomen: Tender, Distended Extremities: Cyanosis (bilateral hand digits ischemic changes), Edema Skin: Other (echymosis bilateral thigh area and lower leg area) Psych/Mental Status: Other (sedated) - Procedures Procedures: Procedures Procedure Code Date BLOOD TRANSFUSION SERVICE 93895 07/23/17 DRAINAGE OF R PLEURAL CAV WITH DRAIN DEV, OPEN APPROACH [id number] 07/23/17 INSERT CATH PLEURA W/O IMAGE 80145 07/23/17 INSERT EMERGENCY AIRWAY [id number] 07/23/17 INSERT INFUSION DEV IN R INT JUGULAR VEIN, PERC [id number] 07/23/17 INSERT TUNNELED CV CATH [id number] 07/23/17 INSERTION OF ENDOTRACHEAL AIRWAY INTO TRACHEA, VIA OPENING [id number] 07/23/17 RESPIRATORY VENTILATION, 24-96 CONSECUTIVE HOURS [id number] 07/23/17 TRANSFUSE NONAUT FROZEN PLASMA IN PERIPH VEIN, PERC 85805H6 07/23/17 TRANSFUSE NONAUT RED BLOOD CELLS IN PERIPH VEIN, PERC 33832A9 07/23/17 VENT MGMT INPAT INIT DAY 07/23/17 VENT MGMT INPAT SUBQ DAY 07/23/17 Assessment/Plan - Problem List Patient Problems: All Active Problems DYSPNEA WITH BODY ACHES AND NUMBNESS (Acute) - Assessment Assessment: Septic shock off vasopressor Severe Gm positive septicemia Acute respiratory failure stable on vent Acute renal failure s/p HD access Elevated liver enzymes worsening DIC Rhabdomyolysis Severe lactic acidosis better Right sided Pneumothorax s/p chest tube placement - Plan Plan: Continue ICU care Vent support Broad spectrum antibiotics Fluid resuscitation TPN S/p HD today Case discussed with Unified Communications Architect. 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 I gave him all the necessary details. DR GAITAN recommended that Unified Communications Architect on both ends should communicate before he can accept the case. I provided edge stripper on board's contact info. I updated patient's boy friend and father re: Plan of care. They both understood wll Plan of care discussed with nursing staff Overall Poor prognosis Nutritional Asmnt/Malnutr-PDOC - Dietary Evaluation Malnutrition Findings (Please click <Entered> for more info): Nutritional Asmnt/Malnutrition Start: 07/23/17 13: 56 Text: Status: Complete Freq: Document 07/23/17 13:57 LCHENG (Rec: 07/23/17 14:14 [email or web address] [email or web address]) Nutritional Asmnt/Malnutrition Patient General Information Nutritional Screening High Risk Diagnosis acute respiratory failure, PNA , sepsis Pertinent Medical Hx/Surgical Hx HTN, Subjective Information Pt seen in ICU busy with doctor and nurse. Per notes, pt was intubated, NPO status. Per MD notes 07/23, may initiate HD waiting final desicion. Current Diet Order/ Nutrition Support NPO Pertinent Medications Calcium gluconate, Levaquin, sodium bicarbonate, nacl 0.9%, propofol Pertinent Labs / Na 132, K 3.9, Cl 88, BUN 59, Cr 5.4, Glucose 90, Calcium 5.8, Phos 6.8, Mg 1.5, AST 154, ALT 51, Alb 2.1 Nutritional Hx/Data Height 1.52 m Height (Calculated Centimeters) 152.4 Current Weight (lbs) 60.781 kg Weight (Calculated Kilograms) 60.8 Weight (Calculated Grams) 51815.4 [place] Body Weight 100 % [place] Body Weight 134 Body Mass Index (BMI) 26.2 Weight Status Overweight GI Symptoms GI Symptoms None Current %PO Negligible < 25% Estimated Nutritional Goals BEE in Kcals: Using Current wt Calories/Kcals/Kg 30-35 Kcals Calculated 1483-4683 Protein: Using Current wt Protein g/k.2-1.4 monior renal labs Protein Calculated 73-85 Fluid: ml 7511-0670 or per MD d/t acute renal failure Nutritional Problem 1. Problem Problem altered nutrition related lab values Etiology imbalanced electrolytes, acute renal failure Signs/Symptoms: Na 132, K 3.9, Cl 88, BUN 59, Cr 5.4, Calcium 5.8, Phos 6.8, Mg 1.5 Intervention/Recommendation Comments 1. Monitor NPO status 2. If enteral feeding needed, recomend to start Novasource Renal 20ml/hr continuous, increase to goal rate of 40ml/ hr continuous as tolerated. This will provide 1920kcal, 87g protein and 699ml water, meeting 100% of calorie needs and 102% of protein needs, 3. F/U as high risk in 2 days, 1/4 Expected Outcomes/Goals Expected Outcomes/Goals 1. Pt to meet at least 75% of nutritional needs in 2-3 days 2. Wt stability, skin to remain intact, labs to improve .
--- NOTE | 2017-07-25 23:51 | Infectious Disease Prog Note ---
Infectious Disease Subjective - Review of Systems Service Date: 07/25/17 Subjective: doing the same. Infectious Disease Objective - Results Result Diagrams: 07/25/17 04:35 07/25/17 04:35 Recent Labs: Laboratory Last Values WBC 18.2 Th/cmm (4.8-10.8) H 07/25/17 04:35 RBC 3.15 Mil/cmm (3.80-5.10) L 07/25/17 04:35 Hgb 8.7 gm/dL (12-16) L 07/25/17 04:35 Hct 24.2 % (41.0-60) L 07/25/17 04:35 MCV 76.8 fl (81-100) L 07/25/17 04:35 MCH 27.5 pg (27.0-31.0) 07/25/17 04:35 MCHC Differential 35.9 pg (28.0-36.0) 07/25/17 04:35 RDW 15.9 % (11.5-20.0) 07/25/17 04:35 Plt Count 10 Th/cmm (150-400) L* 07/25/17 04:35 MPV 8.5 fl 07/25/17 04:35 Band Neutrophils % 16 % (0-10) H 07/25/17 04:35 Neutrophils (Manual) 75 % (40-80) 07/25/17 04:35 Lymphocytes 6 % (20-50) L 07/25/17 04:35 Monocytes 3 % (2-10) 07/25/17 04:35 Eosinophils 0 % (0-5) 07/23/17 14:40 Basophils 0 % (0-3) 07/23/17 14:40 Hypochromia 1+ 07/23/17 21:47 Platelet Estimate DECREASED PLATELETS (NORMAL) 07/25/17 04:35 Platelet Morphology NORMAL (NORMAL) 07/23/17 14:40 Polychromasia 1+ 07/23/17 21:47 Anisocytosis 1+ 07/22/17 10:55 Microcytosis 3+ 07/23/17 14:40 Tear Drop Cells 2+ 07/23/17 21:47 Stomatocytes 1+ 07/23/17 21:47 RBC Morph Micro Appear ABNORMAL (NORMAL) 07/23/17 14:40 ESR 20 mm/hr (0-30) 07/23/17 Unknown Plt Count 10 Th/cmm (150-750) L* 07/25/17 10:50 PT 12.3 SECONDS (9.5-11.5) H 07/25/17 14:30 INR 1.17 (0.5-1.4) 07/25/17 14:30 PTT (Actin FS) 31.2 SECONDS (26.0-38.0) 07/25/17 10:50 Fibrinogen 204.0 mg/dL (200.0-400.0) 07/25/17 10:50 D-Dimer > 5000 ng/mL (100-400) H 07/25/17 10:50 Specimen Source Arterial 07/25/17 09:14 Sample Site A-LINE 07/25/17 09:14 pH 7.55 (7.35-7.45) H 07/25/17 09:14 pCO2 39.0 mmHg (35.0-45.0) 07/25/17 09:14 pO2 145.0 mmHg (80.0-100.0) H 07/25/17 09:14 HCO3 33.4 mEq/L (20.0-26.0) H 07/25/17 09:14 Base Excess 10.8 mEq/L (-3.0-3.0) H 07/25/17 09:14 O2 Saturation 99.0 % (92.0-100.0) 07/25/17 09:14 Roland Test NA 07/25/17 09:14 Vent Rate 14 07/25/17 09:14 Inspired O2 40 07/25/17 09:14 Tidal Volume NA 07/25/17 09:14 PEEP NA 07/25/17 09:14 Pressure (ins/psv/peep) NA 07/25/17 09:14 Critical Value LZHANG 07/25/17 09:14 Sodium 135 mEq/L (136-145) L 07/25/17 04:35 Potassium 3.3 mEq/L (3.5-5.1) L 07/25/17 04:35 Chloride 90 mEq/L (98-107) L 07/25/17 04:35 Carbon Dioxide 31.4 mEq/L (21.0-31.0) H 07/25/17 04:35 Anion Gap 16.9 (7.0-16.0) H 07/25/17 04:35 BUN 54 mg/dL (7-25) H 07/25/17 04:35 Creatinine 5.5 mg/dL (0.6-1.2) H* 07/25/17 04:35 Est GFR ( Amer) 11.3 ml/min (>90) 07/25/17 04:35 Est GFR (Non-Af Amer) 9.3 ml/min 07/25/17 04:35 BUN/Creatinine Ratio 9.8 07/25/17 04:35 Glucose 120 mg/dL (70-105) H 07/25/17 04:35 POC Glucose 159 MG/DL (70 - 105) H 07/25/17 19:35 Whole Bld Lactic Acid 6.09 mmol/L (0.60-1.99) H* 07/24/17 11:30 Uric Acid 7.7 mg/dL (2.3-6.6) H 07/23/17 Unknown Calcium 6.7 mg/dL (8.6-10.3) L 07/25/17 04:35 Phosphorus 2.1 mg/dL (2.5-5.0) L 07/25/17 15:00 Magnesium 1.7 mg/dL (1.9-2.7) L 07/25/17 10:50 Iron 39 ug/dL (27-159) 07/22/17 10:55 TIBC 376 ug/dL (250-450) 07/22/17 10:55 Iron Saturation 10 % (15-55) L 07/22/17 10:55 Unsaturated IBC 337 ug/dL (131-425) 07/22/17 10:55 Ferritin 3523 ng/mL (15-150) H 07/23/17 03:48 Total Bilirubin 8.1 mg/dL (0.3-1.0) H 07/25/17 04:35 Direct Bilirubin 4.94 mg/dL (0.0-0.2) H 07/25/17 04:35 GGTP 40 IU/L (0-60) 07/23/17 03:48 AST 581 U/L (13-39) H 07/25/17 04:35 ALT 228 U/L (7-52) H 07/25/17 04:35 Alkaline Phosphatase 85 U/L (34-104) 07/25/17 04:35 Creatine Kinase 2864 U/L (30-223) H 07/23/17 Unknown CK-MB (CK-2) 95.3 ng/mL (0.6-6.3) H 07/23/17 Unknown Troponin I 0.07 ng/mL (0.01-0.05) H* 07/22/17 10:55 C-Reactive Protein 34.1 mg/dL (0.0-0.9) H 07/24/17 09:24 B-Natriuretic Peptide 511.0 pg/mL (5.0-100.0) H 07/22/17 10:55 Total Protein 4.3 gm/dL (6.0-8.3) L 07/25/17 04:35 Albumin 2.8 gm/dL (3.7-5.3) L 07/25/17 04:35 Globulin 1.5 gm/dL 07/25/17 04:35 Albumin/Globulin Ratio 1.9 (1.0-1.8) H 07/25/17 04:35 [id number]-9-[id number] 224 mg/dL (90-200) H 07/23/17 03:48 Ceruloplasmin 34.4 mg/dL (19.0-39.0) 07/23/17 03:48 Triglycerides 536 mg/dL (<150) H 07/22/17 10:55 Cholesterol 129 mg/dL (<200) 07/22/17 10:55 LDL Cholesterol Direct 23 mg/dL (75-193) L 07/22/17 10:55 HDL Cholesterol 15 mg/dL (23-92) L 07/22/17 10:55 Amylase 276 U/L (29-103) H 07/22/17 19:04 Lipase 19 U/L (11-82) 07/22/17 19:04 TSH 0.34 uIU/ml (0.34-5.60) 07/23/17 21:47 Serum , Qual NEGATIVE (NEGATIVE) 07/22/17 10:55 PTH Intact 434 pg/mL (15-65) H 07/23/17 21:47 Urine Source [place] 07/23/17 03:48 Urine Color ORANGE 07/23/17 03:48 Urine Clarity HAZY (CLEAR) 07/23/17 03:48 Urine pH 7.0 (4.6 - 8.0) 07/23/17 03:48 Ur Specific [place] 1.010 (1.005-1.030) 07/23/17 03:48 Urine Protein 100 mg/dL (NEGATIVE) H 07/23/17 03:48 Urine Glucose (UA) NEGATIVE mg/dL (NEGATIVE) 07/23/17 03:48 Urine Ketones NEGATIVE mg/dL (NEGATIVE) 07/23/17 03:48 Urine Blood LARGE (NEGATIVE) H 07/23/17 03:48 Urine Nitrate NEGATIVE (NEGATIVE) 07/23/17 03:48 Urine Bilirubin NEGATIVE (NEGATIVE) 07/23/17 03:48 Urine Urobilinogen 0.2 E.U./dL (0.2 - 1.0) 07/23/17 03:48 Ur Leukocyte Esterase NEGATIVE (NEGATIVE) 07/23/17 03:48 Urine RBC 50-100 /hpf (0-5) H 07/23/17 03:48 Urine WBC 2-5 /hpf (0-5) 07/23/17 03:48 Ur Epithelial Cells MODERATE /lpf (FEW) 07/23/17 03:48 Urine Bacteria FEW /hpf (NONE SEEN) 07/23/17 03:48 Stool Occult Blood NEGATIVE (NEGATIVE) 07/23/17 03:15 Stool Leukocyte NO WBC SEEN 07/23/17 03:15 Random Vancomycin 13.0 ug/mL (5.0-40.0) 07/24/17 09:24 Salicylates < 25.0 mg/L (30.0-100.0) L 07/22/17 10:55 Urine Opiates Screen NEGATIVE (NEGATIVE) 07/23/17 03:45 Urine Methadone Screen NEGATIVE (NEGATIVE) 07/23/17 03:45 Acetaminophen < 10.0 ug/mL (10.0-30.0) L 07/22/17 10:55 Ur Barbiturates Screen NEGATIVE (NEGATIVE) 07/23/17 03:45 Ur Tricyclics Screen NEGATIVE (NEGATIVE) 07/23/17 03:45 Ur Phencyclidine Scrn NEGATIVE (NEGATIVE) 07/23/17 03:45 Amphetamines Screen NEGATIVE (NEGATIVE) 07/23/17 03:45 U Methamphetamines Scrn NEGATIVE (NEGATIVE) 07/23/17 03:45 U Benzodiazepines Scrn NEGATIVE (NEGATIVE) 07/23/17 03:45 U Cocaine Metab Screen NEGATIVE (NEGATIVE) 07/23/17 03:45 U Cannabinoids Screen NEGATIVE (NEGATIVE) 07/23/17 03:45 DAQUAN Screen Negative 07/23/17 03:48 Anti-Mitochondrial Ab 5.2 Units (0.0-20.0) 07/23/17 03:48 Smooth Muscle IgG Ab 6 Units (0-19) 07/23/17 03:48 Hepatitis A IgM Ab Negative (Negative) 07/23/17 03:48 Hep Bs Antigen Negative (Negative) 07/23/17 03:48 Hep B Core IgM Ab Negative (Negative) 07/23/17 03:48 Hepatitis C Antibody 0.2 s/co ratio (0.0-0.9) 07/23/17 03:48 HIV 1&2 Antibody Screen NEGATIVE (NEG) 07/23/17 03:48 Influenza A (Rapid) NEG FOR INF A 07/22/17 19:20 Influenza B (Rapid) NEG FOR INF B 07/22/17 19:20 Blood Type O POSITIVE 07/24/17 12:43 Antibody Screen NEGATIVE 07/24/17 12:43 Crossmatch See Detail 07/23/17 14:40 - Physical Exam Vitals and I&O: Vital Signs Temp 99.3 F 07/25/17 23:11 Pulse 105 07/25/17 23:14 Resp 16 07/25/17 23:11 BP 136/83 07/25/17 23:11 Pulse Ox 100 07/25/17 23:14 Intake & Output 07/25/17 07/25/17 07/26/17 06:59 18:59 06:59 Intake Total 2800 80.906 40.934 Output Total 1600 200 Balance 1200 -119.094 40.934 Weight (lbs) 60.781 kg 60.781 kg Intake: Intake, IV Amount 1250 80.906 40.934 Albumin 25% 25gm/100mL 25 100 gm In 100 ml @ 50 mls/hr IV PRN PRN Rx#:[id number] D5-0.9%Ns 1,000 ml @ 75 1000 mls/hr IV .[id number] [facility] Rx #:[id number] Meropenem 500 mg In 50 50 Sodium Chloride 0.9% 50 ml @ 100 mls/hr IV Q12H [facility] Rx#:[id number] Propofol 1,000 mg In 100 100 30.906 40.934 ml @ 5 MCG/KG/MIN 1.823 mls/hr IV TITR [facility] Rx#: [id number] Oral 0 Blood Product 1450 Albumin 100 Output: Chest Tube Drainage 100 Right Mid-Axillary Chest 100 Urine 100 100 Hemodialysis 1500 Other: # Bowel Movements 2 0 Active Medications: Current Medications Chlorhexidine Gluconate (Peridex) 15 ml MM 0800,2000 [facility] Stop: 09/22/17 07:59 Last Admin: 07/25/17 19:51 Dose: 15 ml Dexamethasone Sodium Phosphate (Decadron) 40 mg IVP DAILY [facility] Stop: 09/23/17 11:59 Last Admin: 07/25/17 12:11 Dose: 40 mg Diltiazem HCl (Cardizem) 20 mg IVP Q4H PRN PRN Reason: A-FIB Stop: 09/22/17 22:46 Last Admin: 07/24/17 23:19 Dose: 20 mg Propofol (Diprivan) 1,000 mg in 100 mls @ 1.823 mls/hr IV TITR [facility]; 5 MCG/KG/ MIN PRN Reason: Protocol Stop: 09/20/17 21:49 Last Titration: 07/25/17 19:43 Dose: 10 mcg/kg/min, 3.647 mls/hr Levofloxacin (Levaquin Pb) 250 mg in 50 mls @ 50 mls/hr IV Q48HR [facility] Stop: 09/22/17 04:59 Last Admin: 07/24/17 05:51 Dose: 50 mls/hr Meropenem 500 mg/ Sodium (Chloride) 50 mls @ 100 mls/hr IV Q12H [facility] Stop: 09/21/17 03:26 Last Admin: 07/25/17 19:11 Dose: 100 mls/hr Norepinephrine Bitartrate 4 mg (/ Dextrose) 254 mls @ 30.48 mls/hr IV TITR PRN ; Protocol; 8 MCG/MIN PRN Reason: BP MAINTENANCE (PER PROTOCOL) Stop: 09/21/17 14:59 Ferric Sodium Gluconate Complex 125 mg/ Sodium Chloride 110 mls @ 100 mls/hr IV Q24HR [facility] Stop: 07/31/17 13:05 Last Admin: 07/25/17 13:00 Dose: 100 mls/hr Multivitamins/Minerals 5 ml/Dextrose/ Amino Acids/Electrolytes 1,005 mls @ 42 mls/hr IV .[id number] [facility] Stop: 09/23/17 15:59 Last Admin: 07/25/17 15:21 Dose: 42 mls/hr Potassium Chloride/Dextrose/Sod Cl (D5-0.9ns W/Kcl 20meq) 1,000 mls @ 75 mls/ hr IV .[id number] [facility] Stop: 09/23/17 13:21 Last Admin: 07/25/17 14:10 Dose: 75 mls/hr Insulin Aspart (Novolog Insulin Sliding Scale) 0 units SUBQ Q6HR [facility] PRN Reason: Protocol Stop: 09/23/17 17:59 Last Admin: 07/25/17 19:38 Dose: 2 units Miscellaneous (Vancomycin Iv Per Pharmacy) 1 [facility] PRN [facility] Stop: 09/21/17 09:44 Miscellaneous (Probiotic Screen) 1 [facility] PRN PRN PRN Reason: PROTOCOL Stop: 09/21/17 17:51 Miscellaneous (Tpn Per Pharmacy) 1 [facility] PRN PRN PRN Reason: PROTOCOL Stop: 09/22/17 18:45 Oseltamivir Phosphate (Tamiflu) 30 mg PO DAILY [facility] Stop: 09/21/17 14:14 General: no acute distress, well developed, well nourished HEENT: atraumatic, normocephalic, PERRLA, EOMI, moist mucous membrane Neck: supple, no thyromegaly, no lymphadenopathy Cardiovascular: S1S2, regular Lungs: clear to auscultation bilaterally, clear to percussion Abdomen: soft, no tender Extremities: no cyanosis, no clubbing, no edema Neurological: awake, alert, oriented Skin: intact - Procedures Procedures: Procedures Procedure Code Date BLOOD TRANSFUSION SERVICE 45076 07/23/17 DRAINAGE OF R PLEURAL CAV WITH DRAIN DEV, OPEN APPROACH [id number] 07/23/17 INSERT CATH PLEURA W/O IMAGE [id number] 07/23/17 INSERT EMERGENCY AIRWAY [id number] 07/23/17 INSERT INFUSION DEV IN R INT JUGULAR VEIN, PERC [id number] 07/23/17 INSERT TUNNELED CV CATH [id number] 07/23/17 INSERTION OF ENDOTRACHEAL AIRWAY INTO TRACHEA, VIA OPENING [id number] 07/23/17 RESPIRATORY VENTILATION, 24-96 CONSECUTIVE HOURS [id number] 07/23/17 TRANSFUSE NONAUT FROZEN PLASMA IN PERIPH VEIN, [facility] [id number] 07/23/17 TRANSFUSE NONAUT RED BLOOD CELLS IN PERIPH VEIN, [facility] [id number] 07/23/17 VENT MGMT INPAT INIT DAY 07/23/17 VENT MGMT INPAT SUBQ DAY 07/23/17 Infectious Disease Assmt/Plan - Problem List Patient Problems: All Active Problems DYSPNEA WITH BODY ACHES AND NUMBNESS (Acute) - Assessment Assessment: 1. Bandemia. 2. Neutropenia. 3. Thrombocytopenia. 4. Hypotension. 5. Suspect sepsis syndrome. 6. High lactic acid is going in favor either hepatic condition versus elevated lactic acid may be due to sepsis versus liver cirrhosis. 7. Multiorgan failure including renal failure, hepatic failure, circulatory failure, and respiratory failure. 8. Bilateral extensive infiltrate, may be pneumonia versus consider acute respiratory distress syndrome. 9. History of hypertension. 10. History of menorrhagia, on control pills. 11. Vent-dependent respiratory failure. 12. Metabolic acidosis with decompensated respiratory alkalosis. 13. Acute renal failure. 14. Liver cirrhosis. - Plan Plan: Patient is getting transferred to the [facility]. Nutritional Asmnt/Malnutr-PDOC - Dietary Evaluation Malnutrition Findings (Please click <Entered> for more info): Nutritional Asmnt/Malnutrition Start: 07/23/17 13: 56 Text: Status: Complete Freq: Document 07/23/17 13:57 LCHENG (Rec: 07/23/17 14:14 HENG [id number]) Nutritional Asmnt/Malnutrition Patient General Information Nutritional Screening High Risk Diagnosis acute respiratory failure, PNA , sepsis Pertinent Medical Hx/Surgical Hx HTN, Subjective Information Pt seen in ICU busy with doctor and nurse. Per notes, pt was intubated, NPO status. Per MD notes 07/23, may initiate HD waiting final desicion. Current Diet Order/ Nutrition Support NPO Pertinent Medications Calcium gluconate, Levaquin, sodium bicarbonate, nacl 0.9%, propofol Pertinent Labs 07/23 Na 132, K 3.9, Cl 88, BUN 59, Cr 5.4, Glucose 90, Calcium 5.8, Phos 6.8, Mg 1.5, AST 154, ALT 51, Alb 2.1 Nutritional Hx/Data Height 1.52 m Height (Calculated Centimeters) 152.4 Current Weight (lbs) 60.781 kg Weight (Calculated Kilograms) 60.8 Weight (Calculated Grams) 01091.4 [place] Body Weight 100 % [place] Body Weight 134 Body Mass Index (BMI) 26.2 Weight Status Overweight GI Symptoms GI Symptoms None Current %PO Negligible < 25% Estimated Nutritional Goals BEE in Kcals: Using Current wt Calories/Kcals/Kg 30-35 Kcals Calculated 0221-9760 Protein: Using Current wt Protein g/k.2-1.4 monior renal labs Protein Calculated 73-85 Fluid: ml 5189-2895 or per MD d/t acute renal failure Nutritional Problem 1. Problem Problem altered nutrition related lab values Etiology imbalanced electrolytes, acute renal failure Signs/Symptoms: Na 132, K 3.9, Cl 88, BUN 59, Cr 5.4, Calcium 5.8, Phos 6.8, Mg 1.5 Intervention/Recommendation Comments 1. Monitor NPO status 2. If enteral feeding needed, recomend to start Novasource Renal 20ml/hr continuous, increase to goal rate of 40ml/ hr continuous as tolerated. This will provide 1920kcal, 87g protein and 699ml water, meeting 100% of calorie needs and 102% of protein needs, 3. F/U as high risk in 2 days, 1/4 Expected Outcomes/Goals Expected Outcomes/Goals 1. Pt to meet at least 75% of nutritional needs in 2-3 days 2. Wt stability, skin to remain intact, labs to improve .
[2017-07-27 12:15] LABS: DIL RUSSELL VIPER VENOM TIME 38.5 sec (0.0-47.0)
[2017-07-30 09:08] LABS: ANCA MYELOPEROXIDASE SEE REF. LAB REPORT; ASCA IGG-ANCA SEE REF. LAB REPORT
[2017-07-30 13:23] LABS: HEP DELTA VIRUS AB SEE REF. LAB REPORT
[2017-08-07 15:15] LABS: DENGUE FEVER IGG SEE REF. LAB REPORT
[2017-08-07 15:16] LABS: DENGUE FEVER IGM SEE REF. LAB REPORT
--- NOTE | 2017-08-27 02:16 | Discharge Summary ---
DATE OF DISCHARGE: 07/26/2017 FINAL DIAGNOSES: 1. Septic shock. 2. Multisystem organ failure. 3. Acute respiratory failure, status post intubation requiring mechanical ventilation. 4. Disseminated intravascular coagulation secondary to sepsis. 5. Bilateral pneumonia. 6. Severe metabolic acidosis with acute renal failure requiring hemodialysis. 7. Rhabdomyolysis. 8. Elevated liver enzymes. 9. Right-sided pneumothorax, status post chest tube placement. 10. Gram-positive septicemia. 11. Petechiae and multiple body ecchymosis, most likely due to underlying DIC and sepsis. HOSPITAL COURSE: This is a 37-year-old female was admitted with initial diagnosis of sepsis, multisystem organ failure. The patient was admitted to ICU. The patient was subsequently intubated, seen by multiple specialties including Group Home Supervisor, Brake Rider, Banquet Director, Infectious Disease Specialist and Deputy Sheriff Chief. The patient in the hospital noted to have right-sided pneumothorax. The patient had chest tube placement. The patient was put on mechanical ventilation. The patient appeared to have worsening renal failure with severe metabolic acidosis. The patient was given bicarbonate drip supplements. The patient was given appropriate IV antibiotics. The patient in spite of aggressive fluid resuscitation in her body, the patient's renal function deteriorated. The patient was started on hemodialysis per Nephrology recommendations. Due to underlying severe sepsis, the patient appeared to have been in multisystem organ failure due to DIC. Hematology was consulted. The patient was given multiple blood products including platelets and blood transfusions. The patient was also seen by GI for underlying elevated liver enzymes, had a HIDA scan done which was negative for any acute cholecystitis. The patient also had a V/Q scan done negative for any PE. The patient appeared to have a need for higher level of care due to underlying critical condition and worsening multisystem organ failure including DIC. camp manager was consulted. The patient was subsequently accepted at the [facility] and was cleared by Specialty, to be transferred to [facility] for further care. DISCHARGE CONDITION: Stable. DISCHARGE PROGNOSIS: Guarded. DISCHARGE MEDICATIONS: Please see medication reconciliation. DISCHARGE FOLLOWUP: The patient will be followed by Internal Medicine and Specialty Team at [facility]. The patient was transferred to ICU care. JOB# [id number] [facility]
== END 2017-07-26 00:10 | disposition short-term general hospital (02) | DRG 720 ==
LOC: ER 10:20 → ICU 07-23 07:04
PROVIDERS: ADMIT Family Medicine; ATTEND Family Medicine
PROC: 0BH17EZ Insertion of Endotracheal Airway into Trachea, Via Natural or Artificial Opening (ICD-10-PCS; principal; 2017-07-22)
PROC: 5A1945Z Respiratory Ventilation, 24-96 Consecutive Hours (ICD-10-PCS; 2017-07-22)
PROC: 0W9900Z Drainage of Right Pleural Cavity with Drainage Device, Open Approach (ICD-10-PCS; 2017-07-24)
PROC: 30233L1 Transfusion of Nonautologous Fresh Plasma into Peripheral Vein, Percutaneous Approach (ICD-10-PCS; 2017-07-24)
PROC: 30233N1 Transfusion of Nonautologous Red Blood Cells into Peripheral Vein, Percutaneous Approach (ICD-10-PCS; 2017-07-24)
PROC: 30233K1 Transfusion of Nonautologous Frozen Plasma into Peripheral Vein, Percutaneous Approach (ICD-10-PCS; 2017-07-24)
PROC: 02HV33Z Insertion of Infusion Device into Superior Vena Cava, Percutaneous Approach (ICD-10-PCS; 2017-07-24)
PROC: B548ZZA Ultrasonography of Superior Vena Cava, Guidance (ICD-10-PCS; 2017-07-24)
PROC: 5A1D70Z Performance of Urinary Filtration, Intermittent, Less than 6 Hours Per Day (ICD-10-PCS; 2017-07-24)
PROC: 5A1D70Z Performance of Urinary Filtration, Intermittent, Less than 6 Hours Per Day (ICD-10-PCS; 2017-07-25)
DX: A41.89 Other specified sepsis (principal); K72.00 Acute and subacute hepatic failure without coma; I26.99 Other pulmonary embolism without acute cor pulmonale; N17.0 Acute kidney failure with tubular necrosis; J96.01 Acute respiratory failure with hypoxia; D61.818 Other pancytopenia; J18.9 Pneumonia, unspecified organism; R65.21 Severe sepsis with septic shock; D68.9 Coagulation defect, unspecified; E83.51 Hypocalcemia; E87.1 Hypo-osmolality and hyponatremia; I47.1 Supraventricular tachycardia; D50.9 Iron deficiency anemia, unspecified; M62.82 Rhabdomyolysis; J93.9 Pneumothorax, unspecified; I50.9 Heart failure, unspecified; I11.0 Hypertensive heart disease with heart failure; E87.6 Hypokalemia; J01.90 Acute sinusitis, unspecified; Z99.11 Dependence on respirator [ventilator] status; K74.60 Unspecified cirrhosis of liver; R58 Hemorrhage, not elsewhere classified
CPT/HCPCS: 36415-UA; 36600-90; 71045-TC; 71250-TC; 76700-TC; 78226-TC; 80048-TC; 80053-TC; 80061-TC; 80074-90; 80076-TC; 80202-TC; 80307; 80329-TC; 81001-TC; 82103-90; 82150-TC; 82248-TC; 82270-TC; 82390-90; 82533-90; 82550-TC; 82553; 82652-90; 82728-90; 82803-TC; 82948-90; 82977-90; 83516-90; 83540-90; 83550-90; 83605; 83690-TC; 83735-TC; 83880-TC; 83970-90; 84100-TC; 84145-90; 84443-TC; 84484-TC; 84550-TC; 84703-TC; 85007-TC; 85025-TC; 85027-TC; 85049-TC; 85379-TC; 85384-TC; 85610-TC; 85613; 85613-90; 85652-TC; 85730-90; 85730-TC; 86021-90; 86038-90; 86141-TC; 86160-90; 86255-90; 86430-90; 86638-90; 86671-90; 86703-TC; 86790-90; 86850-TC; 86900-TC; 86901-TC; 86922-TC; 86927-TC; 87046-90; 87086-90; 87230-TC; 87380-90; 87449-90; 87804-TC; 89055-TC; 90779; 90799; 90937; 93005; 93930-50-TC; 93970-TC-50; 94002; 94003; 94760; 96375; 96376; A9537; A9540; A9567; J0330; J0610; J0696; J1100; J1644; J1720; J1815; J1940; J1956; J2001; J2185; J2543; J2704; J2916; J3370; J3475; J7030; J7040; J7042; J7070; P9016; P9017; P9035; P9046; X6452; X6598; X7704; Z7610